=== PATIENT | male | born 1940 | race Caucasian/White ===

== ENCOUNTER 2017-07-02 12:21 | Inpatient (IN) | payer BC, MEDICARE ==
--- NOTE | 2017-07-02 12:44 | ED ---
General Adult HPI - General Chief complaint: Chest Pain Stated complaint: Sob,CP Time Seen by Provider: 07/02/17 12:21 Source: EMS, RN notes reviewed Mode of arrival: EMS Limitations: no limitations - History of Present Illness Initial comments: This is a 76-year-old male with past medical history significant for asthma. Patient states this morning he was having an asthma attack if he breathes perfume. Patient states it caused the typical chest tightness in the front and the back which is normal with his asthma. Patient states he went to the hospital at [place]. While he was elevated troponins 2 as well as an EKG and they found no significant change in the troponins at 0.055 and 0.056. Patient states he has no longer expressing any chest pain. Patient states it is still difficult to breathe. Patient received multiple doses of albuterol and Atrovent via nebulizer. Patient also states steroids. Patient states breath is still somewhat short at this time but much better than it was this morning. Patient requested admission at our hospital as opposed to the original hospital he went to. Patient denies any recent fever chills or cough. Patient is pain- free at this time - Related Data Home Medications Medication Instructions Recorded Confirmed Allopurinol [Zyloprim] 100 mg PO DAILY 05/09/15 05/09/16 Allopurinol [Zyloprim] 300 mg PO DAILY 05/09/15 05/09/16 Atorvastatin [Lipitor] 40 mg PO DAILY 05/09/15 05/09/16 Lisinopril [Zestril] 5 mg PO HS 05/09/15 05/09/16 Metoprolol Tartrate [Lopressor] 25 mg PO BID 05/09/15 05/09/16 Tamsulosin HCl [Flomax] 0.4 mg PO HS 05/13/15 05/09/16 Fluticasone/Salmeterol [Advair 1 puff INHALATION RT-BID 05/08/16 05/09/16 250-50 Diskus] methylPREDNISolone [Medrol] 4 mg PO DAILY 05/08/16 05/09/16 Previous Rx's Medication Instructions Recorded HYDROcodone/APAP 5-325MG [Verbena 1 - 2 tab PO Q6HR PRN #10 tab 05/14/15 5-325] Aspirin 81 mg PO DAILY #30 chew 05/10/16 Clopidogrel [Plavix] 75 mg PO DAILY #30 tab 05/10/16 Nitroglycerin Sl Tabs [Nitrostat] 0.4 mg SUBLINGUAL Q5M PRN #25 tab 05/10/16 Spironolactone [Aldactone] 25 mg PO DAILY #30 tab 05/10/16 metFORMIN HCL [Glucophage] 1,000 mg PO BID #0 05/10/16 Allergies Allergy/AdvReac Type Severity Reaction Status Date / Time Tetracyclines Allergy Rash/Hives Verified 07/02/17 12:23 aspirin AdvReac was told Verified 07/02/17 12:23 not to take r/t nasal polyps Review of Systems ROS Statement: Those systems with pertinent positive or pertinent negative responses have been documented in the HPI. ROS Other: All systems not noted in ROS Statement are negative. Past Medical History Past Medical History: Asthma, Cancer, Diabetes Mellitus, Hearing Disorder / Deafness, Myocardial Infarction ([place]) Additional Past Medical History / Comment(s): GOUT, HX OF MULT NASAL POLYPS, prostate cancer Last Myocardial Infarction Date:: 2009 History of Any Multi-Drug Resistant Organisms: None Reported Past Surgical History: AICD, Appendectomy, Cholecystectomy, Heart Catheterization With Stent, Joint Replacement, Pacemaker, Tonsillectomy Additional Past Surgical History / Comment(s): NASAL SX X 6 FOR POLYPS, TUBES IN EARS, Right hip replacement Past Anesthesia/Blood Transfusion Reactions: No Reported Reaction Date of Last Stent Placement:: 2009 Type of Cardiac Device: Permanent Pacemaker, AICD Device Placement Date:: 2014 Past Psychological History: No Psychological Hx Reported Smoking Status: Former smoker Past Alcohol Use History: None Reported, Occasional Past Drug Use History: None Reported - Past Family History Mother Family Medical History: No Reported History Father Family Medical History: Myocardial Infarction ([place]) Additional Family Medical History / Comment(s): emphysema General Exam - General Exam Comments Initial Comments: GENERAL: Patient is well-developed and well-nourished. Patient is nontoxic and well- hydrated and is in mild distress. ENT: Neck is soft and supple. No significant lymphadenopathy is noted. Oropharynx is clear. Moist mucous membranes. Neck has full range of motion without eliciting any pain. EYES: The sclera were anicteric and conjunctiva were pink and moist. Extraocular movements were intact and pupils were equal round and reactive to light. Eyelids were unremarkable. PULMONARY: Patient has expiratory wheezing bilaterally CARDIOVASCULAR: There is a regular rate and rhythm without any murmurs gallops or rubs. Femoral pulses are equal bilaterally ABDOMEN: Soft and nontender with normal bowel sounds. No palpable organomegaly was noted. There is no palpable pulsatile mass. SKIN: Skin is clear with no lesions or rashes and otherwise unremarkable. NEUROLOGIC: Patient is alert and oriented x3. Cranial nerves II through XII are grossly intact. Motor and sensory are also intact. Normal speech, volume and content. Symmetrical smile. MUSCULOSKELETAL: Normal extremities with adequate strength and full range of motion. No lower extremity swelling or edema. No calf tenderness. LYMPHATICS: No significant lymphadenopathy is noted PSYCHIATRIC: Normal psychiatric evaluation. Normal interpersonal interactions appears functionally intact in deals appropriately with others. No signs of depression. No signs of anxiety. Limitations: no limitations Course Vital Signs 07/02/17 07/02/17 12:23 12:34 Temperature 98.0 F Pulse Rate 104 H Respiratory 24 24 Rate Blood Pressure 149/94 O2 Sat by Pulse 94 L Oximetry Medical Decision Making - Medical Decision Making EKG shows sinus rhythm with occasional PVC at 89 bpm TN interval is 206 QRS is 110 QT interval 38 QTC is 472. Patient's EKG shows no ST segment elevation or depression or T wave abnormalities are noted. Disposition Clinical Impression: Status asthmaticus, Elevated troponin Disposition: ADMITTED IP TO THIS HOSP Referrals: Mohit Martínez DO [Primary Care Provider] - 1-2 days Time of Disposition: 12:45
[2017-07-02 13:36] VITALS: RESP 18
[2017-07-02 14:54] VITALS: BMI 24.4
[2017-07-02] MEDS: IPRATROPIUM-ALBUTEROL 3 ML NEB INHALATION PRN ×2 (15:10→19:55)
[2017-07-02] MEDS ORDERED: NITROGLYCERIN SL TABS 0.4 MG TAB SUBLINGUAL PRN (15:52)
--- NOTE | 2017-07-02 16:45 | P.HPIM ---
History of Present Illness 76-year-old male with past medical history significant for asthma. Patient states this morning he was having an asthma attack if he breathes perfume. Patient states it caused the typical chest tightness in the front and the back which is normal with his asthma. Patient states he went to the hospital at [place]. While he was elevated troponins 2 as well as an EKG and they found no significant change in the troponins at 0.055 and 0.056. Patient states he has no longer expressing any chest pain. Patient states it is still difficult to breathe. Patient received multiple doses of albuterol and Atrovent via nebulizer. Patient also states steroids. Patient states breath is still somewhat short at this time but much better than it was this morning. Patient requested admission at our hospital as opposed to the original hospital he went to. Patient denies any recent fever chills or cough. Patient is pain-free at this time. Although patient is comparing of chest pain earlier today which is pressure-like sensation appears to be related to asthma more than cardiac issue. Patient although has some ST-T wave changes on the EKG. Patient does have history of coronary artery disease ischemic myopathy previous ejection being 30% although patient denied orthopnea or PND does not appear to be in CHF exacerbation patient is on aldactone as a diuretic. Patient was comparing of cough with white sputum production Review of Systems REVIEW OF SYSTEMS: CONSTITUTIONAL: No fever, no malaise, no fatigue. HEENT: No recent visual problems or hearing problems. Denied any sore throat. CARDIOVASCULAR: No chest pain, orthopnea, PND, no palpitations, no syncope. PULMONARY: As mentioned in HPI GASTROINTESTINAL: No diarrhea, no nausea, no vomiting, no abdominal pain. Normoactive bowel sounds. NEUROLOGICAL: No headaches, no weakness, no numbness. HEMATOLOGICAL: Denies any bleeding or petechiae. GENITOURINARY: Denies any burning micturition, frequency, or urgency. MUSCULOSKELETAL/RHEUMATOLOGICAL: Denies any joint pain, swelling, or any muscle pain. ENDOCRINE: Denies any polyuria or polydipsia. The rest of the 14-point review of systems is negative. Past Medical History Past Medical History: Asthma, Coronary Artery Disease (CAD), Cancer, Diabetes Mellitus, Hearing Disorder / Deafness, Myocardial Infarction ([place]), Prostate Disorder, Respiratory Disorder Additional Past Medical History / Comment(s): Prostate cancer (2009) with radiation Last Myocardial Infarction Date:: 2015 History of Any Multi-Drug Resistant Organisms: None Reported Past Surgical History: AICD, Appendectomy, Cholecystectomy, Heart Catheterization With Stent, Joint Replacement, Pacemaker, Tonsillectomy Additional Past Surgical History / Comment(s): nasal surgery for nasal polyps, right hip replacement Past Anesthesia/Blood Transfusion Reactions: No Reported Reaction Date of Last Stent Placement:: 2015 Type of Cardiac Device: Permanent Pacemaker, AICD Device Placement Date:: 2014 Past Psychological History: No Psychological Hx Reported Smoking Status: Former smoker Past Alcohol Use History: Occasional Past Drug Use History: None Reported - Past Family History Mother Family Medical History: No Reported History Father Family Medical History: Myocardial Infarction ([place]) Additional Family Medical History / Comment(s): emphysema Medications and Allergies Home Medications Medication Instructions Recorded Confirmed Type Allopurinol [Zyloprim] 100 mg PO DAILY 05/09/15 07/02/17 History Allopurinol [Zyloprim] 300 mg PO DAILY 05/09/15 07/02/17 History Atorvastatin [Lipitor] 40 mg PO DAILY 05/09/15 07/02/17 History Metoprolol Tartrate [Lopressor] 25 mg PO BID 05/09/15 07/02/17 History Tamsulosin HCl [Flomax] 0.4 mg PO DAILY 05/13/15 07/02/17 History methylPREDNISolone [Medrol] 4 mg PO DAILY 05/08/16 07/02/17 History Clopidogrel [Plavix] 75 mg PO DAILY #30 tab 05/10/16 07/02/17 Rx Nitroglycerin Sl Tabs [Nitrostat] 0.4 mg SUBLINGUAL Q5M PRN #25 tab 05/10/1608/14 Rx Spironolactone [Aldactone] 25 mg PO DAILY #30 tab 05/10/16 07/02/17 Rx metFORMIN HCL [Glucophage] 1,000 mg PO BID #0 05/10/16 07/02/17 Rx Albuterol Nebulized [Ventolin 2.5 mg INHALATION RT-Q4H 07/02/17 07/02/17 History Nebulized] Aspirin 81 mg PO DAILY 07/02/17 07/02/17 History Lisinopril [Prinivil] 5 mg PO HS 07/02/17 07/02/17 History Allergies Allergy/AdvReac Type Severity Reaction Status Date / Time Tetracyclines Allergy Rash/Hives Verified 07/02/17 12:52 aspirin AdvReac was told Verified 07/02/17 12:52 not to take r/t nasal polyps Physical Exam Vitals: Vital Signs Temp Pulse Pulse Resp BP BP Pulse Ox 07/02/17 15:20 92 07/02/17 15:10 88 07/02/17 14:39 98.1 F 110 H 18 137/86 95 07/02/17 13:45 97.4 F L 07/02/17 13:35 94 18 149/94 95 07/02/17 12:34 24 07/02/17 12:23 98.0 F 104 H 24 149/94 94 L Intake and Output 07/02/17 07/02/17 07/02/17 06:59 14:59 22:59 Other: # Voids 1 Weight 66.6 kg Patient Weight 07/03/17 06:59 Weight 66.6 kg PHYSICAL EXAMINATION: GENERAL: The patient is alert and oriented x3, not in any acute distress. Well developed, well nourished. HEENT: Pupils are round and equally reacting to light. EOMI. No scleral icterus. No conjunctival pallor. Normocephalic, atraumatic. No pharyngeal erythema. No thyromegaly. CARDIOVASCULAR: S1 and S2 present. No murmurs, rubs, or gallops. PULMONARY: Mildly limited air entry into bilateral lung harley with expiratory wheezing patient is not using any accessory muscles of breathing ABDOMEN: Soft, nontender, nondistended, normoactive bowel sounds. No palpable organomegaly. MUSCULOSKELETAL: No joint swelling or deformity. EXTREMITIES: No cyanosis, clubbing, or pedal edema. NEUROLOGICAL: Gross neurological examination did not reveal any focal deficits. SKIN: No rashes. Results Labs: Abnormal Lab Results - Last 24 Hours (Table) 07/02/17 Range/Units 12:20 Troponin I 0.052 H* (0.000-0.034) ng/mL Thrombosis Risk Factor Assmnt - Choose All That Apply Any of the Below Risk Factors Present?: No Other Risk Factors: Yes Each Risk Factor Represents 2 Points: Age 61-74 years Other congenital or acquired thrombophilia - If yes, enter type in comment: No Thrombosis Risk Factor Assessment Total Risk Factor Score: 2 Thrombosis Risk Factor Assessment Level: Low Risk Assessment and Plan Plan: , Acute asthma exacerbation, patient appears to have chronic moderate persistent asthma with acute exacerbation outpatient the will be started on oral steroids inhalational treatments. I do not believe patient will require any antibiotics at this time. -mild elevated troponin secondary to hypoxemia -Congestive heart failure chronic systolic dysfunction from ischemic cardiomyopathy without any acute exacerbation -Coronary artery disease -Type 2 diabetes mellitus -Benign prostatic hypertrophy -Type 2 diabetes mellitus: Patient will be resumed on home regimen of anti- diabetic medications along with sliding scale insulin for systemic steroids
[2017-07-02] MEDS: metFORMIN 500 MG TAB PO SCH (17:15)
[2017-07-02] MEDS ORDERED: methylPREDNISolone SOD SUCCI 125 MG/2 ML VIAL IV SCH (18:00)
[2017-07-02] MEDS: METOPROLOL TARTRATE 25 MG TAB PO SCH (20:39)
[2017-07-02 20:55] LABS: Glucose,Whole Blood 250 mg/dL (75-99)
[2017-07-02] MEDS ORDERED: LISINOPRIL 5 MG TAB PO SCH (21:00)
[2017-07-02] MEDS: INSULIN ASPART 100 UNIT/ML 1 ML 10 ML VIAL SQ SCH (21:07)
[2017-07-03 05:59] LABS: Glucose,Whole Blood 139 mg/dL (75-99)
[2017-07-03 06:23] LABS: HCT 37.9 % (39.0-53.0); HGB 12.1 gm/dL (13.0-17.5); MCH 30.3 pg (25.0-35.0); MCHC 31.8 g/dL (31.0-37.0); Mean Platelet Volume 6.9; Platelet Count 208 k/uL (150-450); RBC 3.99 m/uL (4.30-5.90); RDW 15.1 % (11.5-15.5); WBC 9.1 k/uL (3.8-10.6)
[2017-07-03 06:33] LABS: Anion Gap 8 mmol/L; Blood Urea Nitrogen 15 mg/dL (9-20); Calcium 9.2 mg/dL (8.4-10.2); Carbon Dioxide 26 mmol/L (22-30); Chloride 107 mmol/L (98-107); Glucose 126 mg/dL (74-99); Potassium 4.6 mmol/L (3.5-5.1); Sodium 141 mmol/L (137-145)
[2017-07-03] MEDS: INSULIN ASPART 100 UNIT/ML 1 ML 10 ML VIAL SQ SCH ×2 (06:35→12:17)
[2017-07-03] MEDS: IPRATROPIUM-ALBUTEROL 3 ML NEB INHALATION PRN ×3 (06:55→11:27)
--- NOTE | 2017-07-03 08:46 | P.CRDCN ---
History of Present Illness Consult date: 07/03/17 History of present illness: This is Dr. Dunne dictating a consultation on this 76-year-old gentleman with history of previous coronary artery disease and stent placement of the proximal LAD done in 2009. Patient is also known to have total occlusion of the right coronary artery and diffuse disease in the mid and distal segments of the LAD and moderate disease in the distal circumflex. Patient was admitted to this hospital in April and had a cardiac catheterization because of abnormal troponins. Patient was found to have significant disease in the distal circumflex and had stent placement. Patient now comes with complaints of increasing shortness of breath, which she claims is related to his asthma exacerbation. Patient did have some tightness in the chest with exacerbation of asthma. He thinks these pains are not related to his coronary artery disease and not suggestive of his angina. Patient is feeling better since coming here. He wants to actually go home. He has chronic cough. His initial EKG did not reveal any acute changes. Second EKG showed T-wave inversions in the lateral leads. His troponin also normal but for not consistent with acute myocardial infarction pattern. His troponin values remained about 0. 55. I would recommend pulmonary evaluation for his shortness of breath and asthma. In view of abnormal EKG, though the enzymes studies are not consistent with acute LA, may consider repeat cardiac catheterization to see if there is any in- stent stenosis in the circumflex distribution. We'll discuss this with the patient. Review of Systems Respiratory: Reports congestion, Reports cough, Reports dyspnea Past Medical History Past Medical History: Asthma, Coronary Artery Disease (CAD), Cancer, Diabetes Mellitus, Hearing Disorder / Deafness, Myocardial Infarction ([place]), Prostate Disorder, Respiratory Disorder Additional Past Medical History / Comment(s): Prostate cancer (2009) with radiation Last Myocardial Infarction Date:: 2015 History of Any Multi-Drug Resistant Organisms: None Reported Past Surgical History: AICD, Appendectomy, Cholecystectomy, Heart Catheterization With Stent, Joint Replacement, Pacemaker, Tonsillectomy Additional Past Surgical History / Comment(s): nasal surgery for nasal polyps, right hip replacement Past Anesthesia/Blood Transfusion Reactions: No Reported Reaction Date of Last Stent Placement:: 2015 Type of Cardiac Device: Permanent Pacemaker, AICD Device Placement Date:: 2014 Past Psychological History: No Psychological Hx Reported Smoking Status: Former smoker Past Alcohol Use History: Occasional Past Drug Use History: None Reported - Past Family History Mother Family Medical History: No Reported History Father Family Medical History: Myocardial Infarction ([place]) Additional Family Medical History / Comment(s): emphysema Medications and Allergies Home Medications Medication Instructions Recorded Confirmed Type Allopurinol [Zyloprim] 100 mg PO DAILY 05/09/15 07/02/17 History Allopurinol [Zyloprim] 300 mg PO DAILY 05/09/15 07/02/17 History Atorvastatin [Lipitor] 40 mg PO DAILY 05/09/15 07/02/17 History Metoprolol Tartrate [Lopressor] 25 mg PO BID 05/09/15 07/02/17 History Tamsulosin HCl [Flomax] 0.4 mg PO DAILY 05/13/15 07/02/17 History methylPREDNISolone [Medrol] 4 mg PO DAILY 05/08/16 07/02/17 History Clopidogrel [Plavix] 75 mg PO DAILY #30 tab 05/10/16 07/02/17 Rx Nitroglycerin Sl Tabs [Nitrostat] 0.4 mg SUBLINGUAL Q5M PRN #25 tab 05/10/1608/14 Rx Spironolactone [Aldactone] 25 mg PO DAILY #30 tab 05/10/16 07/02/17 Rx metFORMIN HCL [Glucophage] 1,000 mg PO BID #0 05/10/16 07/02/17 Rx Albuterol Nebulized [Ventolin 2.5 mg INHALATION RT-Q4H 07/02/17 07/02/17 History Nebulized] Aspirin 81 mg PO DAILY 07/02/17 07/02/17 History Lisinopril [Prinivil] 5 mg PO HS 07/02/17 07/02/17 History Allergies Allergy/AdvReac Type Severity Reaction Status Date / Time Tetracyclines Allergy Rash/Hives Verified 07/02/17 12:52 aspirin AdvReac was told Verified 07/02/17 12:52 not to take r/t nasal polyps Physical Exam Vitals: Vital Signs Temp Pulse Pulse Resp BP BP Pulse Ox 07/03/17 07:06 104 H 07/03/17 06:56 100 07/03/17 04:00 98.0 F 103 H 18 138/98 95 07/03/17 03:10 99 07/03/17 02:50 99 07/03/17 00:00 97.2 F L 81 18 108/69 98 07/02/17 20:07 88 07/02/17 20:00 96.8 F L 111 H 18 145/95 95 07/02/17 19:55 90 95 07/02/17 15:20 92 07/02/17 15:10 88 07/02/17 14:39 98.1 F 110 H 18 137/86 95 07/02/17 13:45 97.4 F L 07/02/17 13:35 94 18 149/94 95 07/02/17 12:34 24 07/02/17 12:23 98.0 F 104 H 24 149/94 94 L Intake and Output 07/02/17 07/03/17 07/03/17 22:59 06:59 14:59 Intake Total 240 10 Balance 240 10 Intake: IV 10 0.9 10 Oral 240 Other: Voiding Method Toilet Toilet Urinal Urinal # Voids 1 2 Weight 68.5 kg GENERAL EXAM: Patient is alert and oriented and doesn't appear to be in any acute distress HEENT: Normocephalic. Normal reaction of pupils, equal size, normal range of extraocular motion. No erythema or exudates in throat. NECK: No masses, no nuchal rigidity. CHEST: No chest wall deformity. LUNGS: Diminished air entry with scattered rhonchi. HEART: S1 and S2 normal with no audible mumurs or gallops. Regular rhythm, f.. ABDOMEN: No hepatosplenomegaly, normal bowel sounds, no guarding or rigidity. SKIN: No rashes CENTRAL NERVOUS SYSTEM: No focal deficits. EXTREMITIES: No cyanosis, clubbing or edema. Results 07/03/17 06:05 07/03/17 06:05 Cardiac Enzymes 07/02/17 Range/Units 12:20 Troponin I 0.052 H* (0.000-0.034) ng/mL CBC 07/03/17 Range/Units 06:05 WBC 9.1 (3.8-10.6) k/uL RBC 3.99 L (4.30-5.90) m/uL Hgb 12.1 L (13.0-17.5) gm/dL Hct 37.9 L (39.0-53.0) % Plt Count 208 (150-450) k/uL Comprehensive Metabolic Panel 07/03/17 Range/Units 06:05 Sodium 141 (137-145) mmol/L Potassium 4.6 (3.5-5.1) mmol/L Chloride 107 (98-107) mmol/L Carbon Dioxide 26 (22-30) mmol/L BUN 15 (9-20) mg/dL Creatinine 0.58 L (0.66-1.25) mg/dL Glucose 126 H (74-99) mg/dL Calcium 9.2 (8.4-10.2) mg/dL Current Medications Generic Name Dose Route Start Last Admin Trade Name Freq PRN Reason Stop Dose Admin Albuterol/Ipratropium 3 ml 07/02/17 12:46 07/03/17 06:55 Duoneb 0.5 Mg-3 Mg/3 Ml Soln INHALATION 3 ml RT-Q4H PRN Administration Shortness Of Breath Or Wheezing Allopurinol 100 mg 07/03/17 09:00 Zyloprim PO DAILY [facility] Aspirin 81 mg 07/03/17 09:00 Aspirin PO DAILY [facility] Atorvastatin Calcium 40 mg 07/03/17 09:00 Lipitor PO DAILY [facility] Clopidogrel Bisulfate 75 mg 07/03/17 09:00 Plavix PO DAILY [facility] Insulin Aspart 0 unit 07/02/17 21:00 07/03/17 06:35 Novolog SQ 1 unit ACHS YECENIA Administration Protocol Lisinopril 5 mg 07/02/17 21:00 07/02/17 20:39 Zestril PO 5 mg HS YECENIA Administration Metformin HCl 1,000 mg 07/02/17 17:30 07/02/17 17:15 Glucophage PO 1,000 mg AC-BID YECENIA Administration Metoprolol Tartrate 25 mg 07/02/17 21:00 07/02/17 20:39 Lopressor PO 25 mg BID YECENIA Administration Nitroglycerin 0.4 mg 07/02/17 15:52 Nitrostat SUBLINGUAL Q5M PRN Chest Pain Prednisone 60 mg 07/03/17 09:00 PO DAILY [facility] Spironolactone 25 mg 07/03/17 09:00 Aldactone PO DAILY [facility] Tamsulosin HCl 0.4 mg 07/03/17 09:00 Flomax PO DAILY [facility] Intake and Output 07/02/17 07/03/17 07/03/17 22:59 06:59 14:59 Intake Total 240 10 Balance 240 10 Intake: IV 10 0.9 10 Oral 240 Other: Voiding Method Toilet Toilet Urinal Urinal # Voids 1 2 Weight 68.5 kg 07/03/17 06:05 07/03/17 06:05 EKG Interpretations (text) Initial EKG showed a sinus rhythm and sinus tachycardia with a pulmonary disease pattern and nonspecific T-wave abnormalities. Second EKG showed sinus rhythm with APCs. There are T-wave abnormalities in the lateral leads. Ischemia cannot be excluded in the lateral leads Assessment and Plan (1) CAD (coronary artery disease) Current Visit: Yes Status: Acute Code(s): I25.10 - ATHSCL HEART DISEASE OF [place] CORONARY ARTERY W/O ANG PCTRS SNOMED Code(s): 57744502 (2) Elevated troponin Current Visit: Yes Status: Acute Code(s): R74.8 - ABNORMAL LEVELS OF OTHER SERUM ENZYMES SNOMED Code(s): 339749788 (3) Status asthmaticus Current Visit: Yes Status: Acute Code(s): J45.902 - UNSPECIFIED ASTHMA WITH STATUS ASTHMATICUS SNOMED Code(s): 819307686 (4) Unstable angina Current Visit: No Status: Acute Code(s): I20.0 - UNSTABLE ANGINA SNOMED Code(s): 8354154 Plan: In view of recent stent placement and abnormal EKG findings, may have to consider doing a repeat cardiac catheterization. We'll discuss this with the patient. If agreeable, may consider cardiac catheter tomorrow. He patient doesn't want any procedure, we'll proceed with maximal medical therapy. I will add oral nitrates to the current regimen
[2017-07-03] MEDS ORDERED: predniSONE 20 MG TAB PO SCH (09:00)
[2017-07-03] MEDS ORDERED: ALLOPURINOL 100 MG TAB PO SCH (09:00)
[2017-07-03] MEDS ORDERED: ISOSORBIDE MONONITRATE ER 15 MG TAB PO SCH (09:00)
[2017-07-03] MEDS ORDERED: ATORVASTATIN 40 MG TAB PO SCH (09:00)
[2017-07-03] MEDS ORDERED: SPIRONOLACTONE 25 MG TAB PO SCH (09:00)
[2017-07-03] MEDS ORDERED: ASPIRIN 81 MG PO SCH (09:00)
[2017-07-03] MEDS ORDERED: TAMSULOSIN 0.4 MG CAP.ER.24H PO SCH (09:00)
[2017-07-03] MEDS ORDERED: CLOPIDOGREL 75 MG TAB PO SCH (09:00)
[2017-07-03] MEDS: METOPROLOL TARTRATE 25 MG TAB PO SCH (09:30)
[2017-07-03] MEDS: metFORMIN 500 MG TAB PO SCH (09:30)
[2017-07-03 12:13] LABS: Glucose,Whole Blood 233 mg/dL (75-99)
[2017-07-03 12:41] VITALS: TEMP 96.8
[2017-07-03 12:47] VITALS: BP 102/62; PULSE 56
--- NOTE | 2017-07-03 14:16 | P.DS ---
Providers Date of admission: 07/02/17 12:46 Attending physician: Amber Negron Consults: 07/02/17 12:46 Consult Physician Routine Consulting Provider: [facility] Consult Reason/Comments: Elevated troponin Do you want consulting provider notified?: Yes Primary care physician: Mohit Martínez [facility] Course: Patient was admitted for asthma exacerbation improved symptoms still has some wheezing wishing to go home. The other issue is some EKG changes along with his cardiac history patient is complaining of chest pain because of which cardiology evaluated the patient the recommending cardiac catheterization but patient is not wishing to get the procedure done here during this hospitalization. We'll discuss with cardiology if cardiology clears him patient will be discharged on weaning dose of steroids and Advair along with albuterol. Will not require any antibiotics at this time patient has asthmatic bronchitis PHYSICAL EXAMINATION: GENERAL: The patient is alert and oriented x3, not in any acute distress. Well developed, well nourished. HEENT: Pupils are round and equally reacting to light. EOMI. No scleral icterus. No conjunctival pallor. Normocephalic, atraumatic. No pharyngeal erythema. No thyromegaly. CARDIOVASCULAR: S1 and S2 present. No murmurs, rubs, or gallops. PULMONARY: Minimal expiratory wheezing was appreciated ABDOMEN: Soft, nontender, nondistended, normoactive bowel sounds. No palpable organomegaly. MUSCULOSKELETAL: No joint swelling or deformity. EXTREMITIES: No cyanosis, clubbing, or pedal edema. NEUROLOGICAL: Gross neurological examination did not reveal any focal deficits. SKIN: No rashes. Assessment and Plan Plan: , Acute asthma exacerbation, patient appears to have chronic moderate persistent asthma with acute exacerbation -mild elevated troponin secondary to hypoxemia -Congestive heart failure chronic systolic dysfunction from ischemic cardiomyopathy without any acute exacerbation -Coronary artery disease -Type 2 diabetes mellitus -Benign prostatic hypertrophy -Type 2 diabetes mellitus: Plan - Discharge Summary Discharge Rx Participant: No New Discharge Prescriptions: New Fluticasone/Salmeterol [Advair 250-50 Diskus] 1 inhalation PO BID #1 inhaler predniSONE 10 mg PO DAILY #30 tab Continue Metoprolol Tartrate [Lopressor] 25 mg PO BID Atorvastatin [Lipitor] 40 mg PO DAILY Allopurinol [Zyloprim] 300 mg PO DAILY Allopurinol [Zyloprim] 100 mg PO DAILY Tamsulosin HCl [Flomax] 0.4 mg PO DAILY Clopidogrel [Plavix] 75 mg PO DAILY #30 tab Nitroglycerin Sl Tabs [Nitrostat] 0.4 mg SUBLINGUAL Q5M PRN #25 tab PRN Reason: Chest Pain Spironolactone [Aldactone] 25 mg PO DAILY #30 tab metFORMIN HCL [Glucophage] 1,000 mg PO BID #0 Lisinopril [Prinivil] 5 mg PO HS Albuterol Nebulized [Ventolin Nebulized] 2.5 mg INHALATION RT-Q4H Aspirin 81 mg PO DAILY Discontinued methylPREDNISolone [Medrol] 4 mg PO DAILY Discharge Medication List Allopurinol [Zyloprim] 100 mg PO DAILY 05/09/15 [History] Allopurinol [Zyloprim] 300 mg PO DAILY 05/09/15 [History] Atorvastatin [Lipitor] 40 mg PO DAILY 05/09/15 [History] Metoprolol Tartrate [Lopressor] 25 mg PO BID 05/09/15 [History] Tamsulosin HCl [Flomax] 0.4 mg PO DAILY 05/13/15 [History] Clopidogrel [Plavix] 75 mg PO DAILY #30 tab 05/10/16 [Rx] Nitroglycerin Sl Tabs [Nitrostat] 0.4 mg SUBLINGUAL Q5M PRN #25 tab 05/10/16 [Rx ] Spironolactone [Aldactone] 25 mg PO DAILY #30 tab 05/10/16 [Rx] metFORMIN HCL [Glucophage] 1,000 mg PO BID #0 05/10/16 [Rx] Albuterol Nebulized [Ventolin Nebulized] 2.5 mg INHALATION RT-Q4H 07/02/17 [ History] Aspirin 81 mg PO DAILY 07/02/17 [History] Lisinopril [Prinivil] 5 mg PO HS 07/02/17 [History] Fluticasone/Salmeterol [Advair 250-50 Diskus] 1 inhalation PO BID #1 inhaler 09/14 [Rx] predniSONE 10 mg PO DAILY #30 tab 07/03/17 [Rx] Follow up Appointment(s)/Referral(s): Mohit Martínez DO [Primary Care Provider] - 3 Days Discharge Disposition: HOME SELF-CARE
[2017-07-03 18:30] LABS: Hemoglobin A1C 6.7 % (4.0-6.0)
== END 2017-07-03 16:34 | disposition home or self-care (01) | DRG 202 ==
LOC: EC 12:21 → 6SEL 12:46
PROVIDERS: ADMIT Internal Medicine; ATTEND Internal Medicine
DX: J45.41 Moderate persistent asthma with (acute) exacerbation (principal); I50.22 Chronic systolic (congestive) heart failure; I25.110 Atherosclerotic heart disease of native coronary artery with unstable angina pectoris; I25.82 Chronic total occlusion of coronary artery; E11.9 Type 2 diabetes mellitus without complications; I25.5 Ischemic cardiomyopathy; R09.02 Hypoxemia; Z96.641 Presence of right artificial hip joint; N40.0 Benign prostatic hyperplasia without lower urinary tract symptoms; H91.90 Unspecified hearing loss, unspecified ear; Z79.899 Other long term (current) drug therapy; Z79.82 Long term (current) use of aspirin; Z79.02 Long term (current) use of antithrombotics/antiplatelets; Z79.4 Long term (current) use of insulin; Z82.5 Family history of asthma and other chronic lower respiratory diseases; Z82.49 Family history of ischemic heart disease and other diseases of the circulatory system; Z87.891 Personal history of nicotine dependence; Z95.5 Presence of coronary angioplasty implant and graft; Z90.49 Acquired absence of other specified parts of digestive tract; Z90.89 Acquired absence of other organs; Z95.810 Presence of automatic (implantable) cardiac defibrillator; Z85.46 Personal history of malignant neoplasm of prostate; I25.2 Old myocardial infarction; I49.3 Ventricular premature depolarization
CPT/HCPCS: 36415; 80048; 83036; 84484; 85027; 93005; 94640; 94760; 99285

== ENCOUNTER 2017-07-07 12:38 | Inpatient (IN) | payer MEDICARE ==
--- NOTE | 2017-07-07 13:09 | ED ---
General Adult HPI - General Stated complaint: chest pain Time Seen by Provider: 07/07/17 12:38 Source: RN notes reviewed - History of Present Illness Initial comments: This is a 76-year-old male who presents emergency Department after having gone to [facility]. Patient stated at 4 AM this morning he had 2 defibrillator shocks and then went to [facility]. Patient states she was also short of breath. According to the [place] physician the patient has an pneumonia as well as elevated troponin. Patient currently states he is somewhat short of breath but feels better than this morning. Patient denies any chest pain now but he did have some earlier this morning. Patient states she's not had a fever that he knows of. Patient states he is coughing but not coughing any sputum up. Patient denies any calf pain. Patient denies any increased edema in the legs. Patient denies any abdominal pain patient denies nausea vomiting diarrhea. After those 2 consecutive shocks this morning he did not receive any more shocks. - Related Data Home Medications Medication Instructions Recorded Confirmed Allopurinol [Zyloprim] 100 mg PO DAILY 05/09/15 07/07/17 Allopurinol [Zyloprim] 300 mg PO DAILY 05/09/15 07/07/17 Atorvastatin [Lipitor] 40 mg PO DAILY 05/09/15 07/07/17 Metoprolol Tartrate [Lopressor] 25 mg PO BID 05/09/15 07/07/17 Tamsulosin HCl [Flomax] 0.4 mg PO DAILY 05/13/15 07/07/17 Albuterol Nebulized [Ventolin 2.5 mg INHALATION RT-Q4H 07/02/17 07/07/17 Nebulized] Aspirin 81 mg PO DAILY 07/02/17 07/07/17 Lisinopril [Prinivil] 5 mg PO HS 07/02/17 07/07/17 predniSONE See Taper PO DAILY 07/07/17 07/07/17 Previous Rx's Medication Instructions Recorded Clopidogrel [Plavix] 75 mg PO DAILY #30 tab 05/10/16 Nitroglycerin Sl Tabs [Nitrostat] 0.4 mg SUBLINGUAL Q5M PRN #25 tab 05/10/16 Spironolactone [Aldactone] 25 mg PO DAILY #30 tab 05/10/16 metFORMIN HCL [Glucophage] 1,000 mg PO BID #0 05/10/16 Fluticasone/Salmeterol [Advair 1 inhalation PO BID #1 inhaler 07/03/17 250-50 Diskus] Isosorbide Mononitrate ER [Imdur] 15 mg PO DAILY #30 dose 07/03/17 Allergies Allergy/AdvReac Type Severity Reaction Status Date / Time Tetracyclines Allergy Rash/Hives Verified 07/07/17 13:07 aspirin AdvReac was told Verified 07/07/17 13:07 not to take r/t nasal polyps Review of Systems ROS Statement: Those systems with pertinent positive or pertinent negative responses have been documented in the HPI. ROS Other: All systems not noted in ROS Statement are negative. Past Medical History Past Medical History: Asthma, Coronary Artery Disease (CAD), Cancer, Diabetes Mellitus, Hearing Disorder / Deafness, Myocardial Infarction (MA), Prostate Disorder, Respiratory Disorder Additional Past Medical History / Comment(s): Prostate cancer (2009) with radiation Last Myocardial Infarction Date:: 2015 History of Any Multi-Drug Resistant Organisms: None Reported Past Surgical History: AICD, Appendectomy, Cholecystectomy, Heart Catheterization With Stent, Joint Replacement, Pacemaker, Tonsillectomy Additional Past Surgical History / Comment(s): nasal surgery for nasal polyps, right hip replacement Past Anesthesia/Blood Transfusion Reactions: No Reported Reaction Date of Last Stent Placement:: 2015 Type of Cardiac Device: Permanent Pacemaker, AICD Device Placement Date:: 2014 Past Psychological History: No Psychological Hx Reported Smoking Status: Former smoker Past Alcohol Use History: Occasional Past Drug Use History: None Reported - Past Family History Mother Family Medical History: No Reported History Father Family Medical History: Myocardial Infarction (MA) Additional Family Medical History / Comment(s): emphysema General Exam - General Exam Comments Initial Comments: GENERAL: Patient is well-developed and well-nourished. Patient is nontoxic and well- hydrated and is in mild distress. ENT: Neck is soft and supple. No significant lymphadenopathy is noted. Oropharynx is clear. Moist mucous membranes. Neck has full range of motion without eliciting any pain. EYES: The sclera were anicteric and conjunctiva were pink and moist. Extraocular movements were intact and pupils were equal round and reactive to light. Eyelids were unremarkable. PULMONARY: Patient is wheezing diffusely CARDIOVASCULAR: Patient is tachycardic at about 106 beats a minute ABDOMEN: Soft and nontender with normal bowel sounds. No palpable organomegaly was noted. There is no palpable pulsatile mass. SKIN: Skin is clear with no lesions or rashes and otherwise unremarkable. NEUROLOGIC: Patient is alert and oriented x3. Cranial nerves II through XII are grossly intact. Motor and sensory are also intact. Normal speech, volume and content. Symmetrical smile. MUSCULOSKELETAL: Normal extremities with adequate strength and full range of motion. No lower extremity swelling or edema. No calf tenderness. LYMPHATICS: No significant lymphadenopathy is noted PSYCHIATRIC: Normal psychiatric evaluation. Course Vital Signs 07/07/17 07/07/17 07/07/17 12:38 14:33 14:40 Temperature 98.4 F Pulse Rate 22 L 101 H 104 H Respiratory 115 H Rate Blood Pressure 151/86 O2 Sat by Pulse 100 Oximetry Medical Decision Making - Medical Decision Making EKG shows sinus tachycardia with occasional PAC at 107 bpm [place] interval is on a 72 QRS is under 12 QT interval 364 QTC is 485. Patient's EKG shows no ST segment elevation or depression. I reviewed the chest x-ray it wasn't obvious that there was pneumonia however the patient was already being treated for. Patient secondary troponin was elevated mildly. I spoke with Dr. Gale he agreed to admit the patient admitted the patient. Patient's been started on heparin and I continued antibiotics. - Lab Data Result diagrams: 07/07/17 12:50 07/07/17 12:50 Lab Results 07/07/17 07/07/17 07/07/17 Range/Units 12:50 12:50 12:50 WBC 8.8 (3.8-10.6) k/uL RBC 4.59 (4.30-5.90) m/uL Hgb 13.7 (13.0-17.5) gm/dL Hct 42.7 (39.0-53.0) % MCV 93.2 (80.0-100.0) fL MCH 29.9 (25.0-35.0) pg MCHC 32.0 (31.0-37.0) g/dL RDW 14.2 (11.5-15.5) % Plt Count 219 (150-450) k/uL Neutrophils % 94 % Lymphocytes % 2 % Monocytes % 3 % Eosinophils % 0 % Basophils % 0 % Neutrophils # 8.2 H (1.3-7.7) k/uL Lymphocytes # 0.2 L (1.0-4.8) k/uL Monocytes # 0.2 (0-1.0) k/uL Eosinophils # 0.0 (0-0.7) k/uL Basophils # 0.0 (0-0.2) k/uL PT (9.0-12.0) sec INR (<1.2) APTT (22.0-30.0) sec Sodium 137 (137-145) mmol/L Potassium 4.6 (3.5-5.1) mmol/L Chloride 101 (98-107) mmol/L Carbon Dioxide 23 (22-30) mmol/L Anion Gap 13 mmol/L BUN 11 (9-20) mg/dL Creatinine 0.60 L (0.66-1.25) mg/dL Est GFR (MDRD) Af Amer >60 (>60 ml/min/1.73 sqM) Est GFR (MDRD) Non-Af >60 (>60 ml/min/1.73 sqM) Glucose 242 H (74-99) mg/dL Plasma Lactic Acid Deep 2.9 H* (0.7-2.0) mmol/L Calcium 8.9 (8.4-10.2) mg/dL Total Bilirubin 0.7 (0.2-1.3) mg/dL AST 30 (17-59) U/L ALT 41 (21-72) U/L Alkaline Phosphatase 82 (38-126) U/L Troponin I (0.000-0.034) ng/mL Total Protein 6.2 L (6.3-8.2) g/dL Albumin 3.9 (3.5-5.0) g/dL 07/07/17 07/07/17 Range/Units 12:50 12:50 WBC (3.8-10.6) k/uL RBC (4.30-5.90) m/uL Hgb (13.0-17.5) gm/dL Hct (39.0-53.0) % MCV (80.0-100.0) fL MCH (25.0-35.0) pg MCHC (31.0-37.0) g/dL RDW (11.5-15.5) % Plt Count (150-450) k/uL Neutrophils % % Lymphocytes % % Monocytes % % Eosinophils % % Basophils % % Neutrophils # (1.3-7.7) k/uL Lymphocytes # (1.0-4.8) k/uL Monocytes # (0-1.0) k/uL Eosinophils # (0-0.7) k/uL Basophils # (0-0.2) k/uL PT 10.4 (9.0-12.0) sec INR 1.1 (<1.2) APTT 22.5 (22.0-30.0) sec Sodium (137-145) mmol/L Potassium (3.5-5.1) mmol/L Chloride (98-107) mmol/L Carbon Dioxide (22-30) mmol/L Anion Gap mmol/L BUN (9-20) mg/dL Creatinine (0.66-1.25) mg/dL Est GFR (MDRD) Af Amer (>60 ml/min/1.73 sqM) Est GFR (MDRD) Non-Af (>60 ml/min/1.73 sqM) Glucose (74-99) mg/dL Plasma Lactic Acid Deep (0.7-2.0) mmol/L Calcium (8.4-10.2) mg/dL Total Bilirubin (0.2-1.3) mg/dL AST (17-59) U/L ALT (21-72) U/L Alkaline Phosphatase (38-126) U/L Troponin I 0.359 H* (0.000-0.034) ng/mL Total Protein (6.3-8.2) g/dL Albumin (3.5-5.0) g/dL Disposition Clinical Impression: Non-STEMI (non-ST elevated myocardial infarction), Defibrillator discharge Disposition: ADMITTED IP TO THIS HOSP Referrals: Mohit Martínez DO [Primary Care Provider] - 1-2 days Time of Disposition: 14:40
[2017-07-07 13:33] LABS: Basophils % (A) 0 %; Eosinophils % (A) 0 %; HCT 42.7 % (39.0-53.0); HGB 13.7 gm/dL (13.0-17.5); Lymphocytes # (A) 0.2 k/uL (1.0-4.8); Lymphocytes % (A) 2 %; MCH 29.9 pg (25.0-35.0); MCV 93.2 fL (80.0-100.0); Mean Platelet Volume 6.9; Monocytes # (A) 0.2 k/uL (0-1.0); Monocytes % (A) 3 %; Neutrophils # (A) 8.2 k/uL (1.3-7.7); Neutrophils % (A) 94 %; Platelet Count 219 k/uL (150-450); RBC 4.59 m/uL (4.30-5.90); RDW 14.2 % (11.5-15.5); WBC 8.8 k/uL (3.8-10.6)
[2017-07-07 13:41] LABS: ALT 41 U/L (21-72); AST 30 U/L (17-59); Albumin 3.9 g/dL (3.5-5.0); Alkaline Phosphatase 82 U/L (38-126); Anion Gap 13 mmol/L; Blood Urea Nitrogen 11 mg/dL (9-20); Calcium 8.9 mg/dL (8.4-10.2); Carbon Dioxide 23 mmol/L (22-30); Chloride 101 mmol/L (98-107); Glucose 242 mg/dL (74-99); Potassium 4.6 mmol/L (3.5-5.1); Sodium 137 mmol/L (137-145); Total Bilirubin 0.7 mg/dL (0.2-1.3); Total Protein 6.2 g/dL (6.3-8.2)
[2017-07-07 13:45] LABS: INR 1.1 (<1.2); Partial Thromboplastin Time 22.5 sec (22.0-30.0); Prothrombin Time 10.4 sec (9.0-12.0)
[2017-07-07] MEDS ORDERED: IPRATROPIUM-ALBUTEROL 3 ML NEB INHALATION STA (14:25)
[2017-07-07] MEDS ORDERED: HEPARIN SODIUM,PORCINE 5,000 UNIT/ML 1 ML VIAL IV ONE (14:37)
[2017-07-07] MEDS ORDERED: NITROGLYCERIN SL TABS 0.4 MG TAB SUBLINGUAL PRN ×2 (14:40→15:52)
[2017-07-07] MEDS: HEPARIN SOD,PORK IN 0.45% NACL 25,000 UNIT in 0.45% NACL 1 500ML.BAG IV SCH (15:13)
--- NOTE | 2017-07-07 16:24 | XR ---
EXAMINATION TYPE: XR chest 1V portable DATE OF EXAM: 07/07/2017 COMPARISON: 05/08/2016 INDICATION: Pneumonia defibrillator malfunction TECHNIQUE: Single frontal view of the chest is obtained. FINDINGS: The heart size is normal. The pulmonary vasculature is normal. The lungs are clear. There is chronic elevation of the right diaphragm. Defibrillator is placed over the left chest. EKG leads overlie the chest. IMPRESSION: 1. No acute pulmonary process.
[2017-07-07] MEDS: PIPERACILLIN-TAZOBACTAM 3.375 GM in DEXTROSE/WATER 1 50ML.BAG IVPB SCH ×2 (16:38→23:12)
[2017-07-07 16:39] LABS: Appearance,Urine Clear (Clear); Bilirubin,Urine Negative (Negative); Blood,Urine Negative (Negative); Color,Urine Light Yellow; Glucose,Urine (UA) 1+ (Negative); Ketones,Urine Negative (Negative); Leukocyte Esterase,Urine Negative (Negative); Nitrite,Urine Negative (Negative); Protein,Urine Trace (Negative); Urobilinogen,Urine <2.0 mg/dL (<2.0)
[2017-07-07 16:41] LABS: Glucose,Whole Blood 248 mg/dL (75-99)
[2017-07-07] MEDS: INSULIN ASPART 100 UNIT/ML 1 ML 10 ML VIAL SQ SCH ×2 (17:05→21:07)
[2017-07-07] MEDS: TAMSULOSIN 0.4 MG CAP.ER.24H PO SCH (17:05)
[2017-07-07] MEDS: metFORMIN 500 MG TAB PO SCH (17:06)
[2017-07-07] MEDS: IPRATROPIUM-ALBUTEROL 3 ML NEB INHALATION SCH ×2 (17:52→19:56)
[2017-07-07] MEDS ORDERED: NITROGLYCERIN OINT 1 INCH/GM PACKET TOPICAL SCH (18:00)
[2017-07-07] MEDS ORDERED: FUROSEMIDE 10 MG/ML 4 ML VIAL IV STA (18:17)
[2017-07-07] MEDS: METOPROLOL TARTRATE 50 MG TAB PO SCH (18:36)
[2017-07-07 19:32] LABS: Creatine Kinase MB 6.2 ng/mL (0.0-2.4); Troponin I 0.264 ng/mL (0.000-0.034)
[2017-07-07] MEDS: SYMBICORT 80-4.5 MCG INHALER INHALATION SCH (19:56)
[2017-07-07] MEDS ORDERED: METOPROLOL TARTRATE 25 MG TAB PO SCH (21:00)
[2017-07-07] MEDS: LISINOPRIL 5 MG TAB PO SCH (21:06)
[2017-07-07 21:08] LABS: Glucose,Whole Blood 105 mg/dL (75-99)
[2017-07-07] MEDS: methylPREDNISolone SOD SUCCI 125 MG/2 ML VIAL IV SCH ×2 (21:09→23:02)
--- NOTE | 2017-07-07 21:09 | HP ---
HISTORY AND PHYSICAL CHIEF COMPLAINTS: Shortness of breath as well as cough and sputum and AICD shocks. HISTORY OF PRESENT ILLNESS: This is a 76-year-old gentleman with a past medical history of asthma, CAD, history of diabetes mellitus, myocardial infarction, history of AICD, CAD and stent, being followed by Dr. Mohit Martínez in the outpatient setting. Apparently he had two AICD shocks at 4 a.m. this morning. The patient went to [facility]. The patient also had shortness of breath and cough and sputum. In [facility], the patient was suspected to have pneumonia and elevated troponin. The patient subsequently was referred to [facility], where he was admitted for further evaluation and treatment through the emergency room. There is no history of any fever, rigor or chills, no history of headache, loss of consciousness, seizures. PAST MEDICAL HISTORY: 1. History of CAD. 2. History of myocardial infarction. 3. History if AICD. 4. History of stent. 5. History of permanent pacemaker. HOME MEDICATIONS: 1. Prinivil 5 mg p.o. at bedtime. 2. Prednisone daily. 3. Glucophage 1000 mg p.o. b.i.d. 4. Flomax 0.4 daily. 5. Aldactone 25 mg p.o. daily. 6. Nitrostat 0.4 sublingually p.r.n. 7. Lopressor 25 mg p.o. b.i.d. 8. Imdur 15 mg p.o. daily. 9. Advair 250/50 one puff b.i.d. 10.Plavix 75 mg p.o. daily. 11.Lipitor 40 mg p.o. daily. 12.Aspirin 81 mg p.o. daily. 13.Zyloprim 300 mg p.o. daily and 100 mg p.o. daily. 14.Ventolin 2.5 q.4 p.r.n. ALLERGIES: 1. TETRACYCLINE. 2. ASPIRIN. FAMILY HISTORY: History of myocardial infarction and emphysema in the family. SOCIAL HISTORY: History of alcohol. Previous history of smoking. REVIEW OF SYSTEMS: ENT: No diminished hearing. No diminished vision. CARDIOVASCULAR SYSTEM: As mentioned earlier. RESPIRATORY SYSTEM: As mentioned earlier. GI: No nausea, vomiting. : No dysuria or retention. NERVOUS SYSTEM: No numbness, weakness. ALLERGY/IMMUNOLOGY: No asthma, hayfever. MUSCULOSKELETAL: As mentioned earlier. HEMATOLOGY/ONCOLOGY: No history of anemia. ENDOCRINE: As mentioned earlier. CONSTITUTIONAL: As mentioned earlier. DERMATOLOGY: Negative. RHEUMATOLOGY: Negative. PSYCHIATRY: As mentioned earlier. PHYSICAL EXAMINATION: Patient is alert and oriented x3. Pulse 105, blood pressure 134/94, respiration 24, temperature 96.1, pulse ox 95% on room air. HEENT: Conjunctivae normal. Oral mucosa moist. NECK: No jugular venous distention. No carotid bruit. No lymph node enlargement. CARDIOVASCULAR SYSTEM: S1, S2 muffled. No S3. No S4. RESPIRATORY SYSTEM: Breath sounds diminished at the bases. Bilateral scattered rhonchi and expiratory wheezing and crackles. ABDOMEN: Soft, nontender. No mass palpable. LEGS: No edema. No swelling. NERVOUS SYSTEM: Higher functions as mentioned earlier. Moves all 4 limbs. No focal motor or sensory deficit. LYMPHATIC: No lymph node palpable in neck or axillae. SKIN: No ulcer, rash, bleeding. LABS: CBC within normal limits. Glucose 242, 248. Plasma lactic acid 2.9 and 5.7. Troponin 0.359 and 0.264. ASSESSMENT: 1. Status post AICD shocks. Rule out cardiac arrhythmia. 2. Possible purulent acute bronchitis or early pneumonia. 3. Elevated lactic acid, multifactorial. 4. Elevated troponin up to 0.359. 5. History of asthma. 6. History of congestive heart failure with chronic systolic dysfunction with some ischemic cardiomyopathy. 7. History of prostate disorder and cancer. 8. History of cholecystectomy. 9. History of coronary artery disease and stent. 10.Remote history of nicotine dependence. RECOMMENDATIONS AND DISCUSSION: In this 76-year-old gentleman who presented with multiple complex medical issues, we will monitor the patient closely, continue the current medications, continue with symptomatic treatment. We will initiate intensive bronchodilator treatment, IV steroids and also empiric antibiotics. Cardiology evaluation. Monitor blood sugars closely. If the sugars are elevated, insulin drip may be initiated. We will follow the patient closely. Prognosis guarded because of the multiple complex medical issues. Further recommendations to follow. A copy of this dictation is being forwarded to Dr. Martínez, who is the primary physician. MMODL / IJN: [id number] /
[2017-07-07] MEDS: IPRATROPIUM-ALBUTEROL 3 ML NEB INHALATION PRN (22:08)
[2017-07-08] MEDS: IPRATROPIUM-ALBUTEROL 3 ML NEB INHALATION PRN ×4 (00:08→23:16)
[2017-07-08 00:58] LABS: Hemoglobin A1C 6.7 % (4.0-6.0)
[2017-07-08 01:15] LABS: Creatine Kinase MB 6.5 ng/mL (0.0-2.4)
[2017-07-08 01:16] LABS: Troponin I 0.339 ng/mL (0.000-0.034)
[2017-07-08 04:46] LABS: Basophils % (A) 0 %; Eosinophils % (A) 0 %; HCT 42.6 % (39.0-53.0); HGB 13.5 gm/dL (13.0-17.5); Lymphocytes # (A) 0.4 k/uL (1.0-4.8); Lymphocytes % (A) 7 %; MCH 30.6 pg (25.0-35.0); MCHC 31.8 g/dL (31.0-37.0); MCV 96.2 fL (80.0-100.0); Mean Platelet Volume 6.7; Monocytes # (A) 0.3 k/uL (0-1.0); Monocytes % (A) 4 %; Neutrophils # (A) 5.9 k/uL (1.3-7.7); Neutrophils % (A) 88 %; Platelet Count 203 k/uL (150-450); RBC 4.42 m/uL (4.30-5.90); RDW 14.2 % (11.5-15.5); WBC 6.7 k/uL (3.8-10.6)
[2017-07-08 05:04] LABS: Anion Gap 9 mmol/L; Blood Urea Nitrogen 15 mg/dL (9-20); Calcium 8.7 mg/dL (8.4-10.2); Carbon Dioxide 26 mmol/L (22-30); Chloride 99 mmol/L (98-107); Cholesterol 98 mg/dL (<200); Glucose 182 mg/dL (74-99); HDL Cholesterol 64 mg/dL (40-60); LDL Cholesterol,Calculated 21 mg/dL (0-99); Magnesium 1.8 mg/dL (1.6-2.3); Potassium 4.4 mmol/L (3.5-5.1); Sodium 134 mmol/L (137-145); Triglycerides 63 mg/dL (<150)
[2017-07-08] MEDS: metFORMIN 500 MG TAB PO SCH ×3 (05:39→17:06)
[2017-07-08 05:57] LABS: Glucose,Whole Blood 174 mg/dL (75-99)
[2017-07-08] MEDS: methylPREDNISolone SOD SUCCI 125 MG/2 ML VIAL IV SCH ×4 (06:09→23:26)
[2017-07-08] MEDS: INSULIN ASPART 100 UNIT/ML 1 ML 10 ML VIAL SQ SCH ×4 (06:10→21:22)
[2017-07-08] MEDS: IPRATROPIUM-ALBUTEROL 3 ML NEB INHALATION SCH ×4 (08:41→20:12)
[2017-07-08] MEDS: SYMBICORT 80-4.5 MCG INHALER INHALATION SCH ×2 (08:47→20:10)
[2017-07-08] MEDS ORDERED: HEPARIN SODIUM,PORCINE 5,000 UNIT/ML 1 ML VIAL IV PRN (08:57)
[2017-07-08] MEDS ORDERED: ALLOPURINOL 100 MG TAB PO SCH (09:00)
[2017-07-08] MEDS ORDERED: predniSONE 10 MG TAB PO SCH (09:00)
--- NOTE | 2017-07-08 09:10 | P.CRDCN ---
History of Present Illness Consult date: 07/08/17 Requesting physician: Emilee Gale Reason for Consult (text): defibrillator discharge, NSTEMI Chief complaint: ICD discharge, shortness of breath History of present illness: Is an 76-year-old gentleman with history of CAD with prior stenting of the proximal LAD with most recent cardiac catheterization in April 2016 that showed a mid LAD with 60% lesion and critical stenosis of the left circumflex which was successfully stented, ischemic cardiomyopathy, status post AICD placement, asthma. He was recently admitted to the hospital with acute asthma exacerbation which time we were consulted for abnormal EKG with changes of T- wave inversion in the lateral leads but did not appear to be new. He was discharged home on steroids. According to the patient yesterday morning early he was going up and down his stairs working on his furnace developed some chest tightness as well as some shortness of breath was on the toilet when he received 2 shocks from his ICD. Since that time, his main complaint is shortness of breath. Since admission, patient has been having runs of paroxysmal atrial fibrillation with rapid ventricular response. I spoke with the device nurse at the office who noted tachycardia episodes and his device interrogation in December that appeared to be consistent with paroxysmal atrial fibrillation with rapid Ventricular response and he was started on Xarelto at that time. He was not currently taking anticoagulant at home. Chest x-ray done at [facility] showed new retrocardiac opacity and left basilar opacity that could represent atelectasis or pneumonia. ABGs showed hypoxemia, NT proBNP was elevated at 3080 his magnesium level was low at 1.3 and he was supplemented with a repeat of 1.8 lactic acid was elevated. Troponins have been elevated at 0.249, 0.359, 0.264 and 0.339. Upon examination, patient is sitting up at the site of the bed. She is visibly short of breath with speaking. He does complain of some shortness of breath, denies further complaints of chest discomfort. He denies complaints of dizziness, lightheadedness or palpitations. Past Medical History Past Medical History: Asthma, Coronary Artery Disease (CAD), Cancer, Diabetes Mellitus, Hearing Disorder / Deafness, Myocardial Infarction (VT), Prostate Disorder, Respiratory Disorder Additional Past Medical History / Comment(s): Prostate cancer (2009) with radiation Last Myocardial Infarction Date:: 2015 History of Any Multi-Drug Resistant Organisms: None Reported Past Surgical History: AICD, Appendectomy, Cholecystectomy, Heart Catheterization With Stent, Joint Replacement, Pacemaker, Tonsillectomy Additional Past Surgical History / Comment(s): nasal surgery for nasal polyps, right hip replacement Past Anesthesia/Blood Transfusion Reactions: No Reported Reaction Date of Last Stent Placement:: 2015 Type of Cardiac Device: Permanent Pacemaker, AICD Device Placement Date:: 2014 Smoking Status: Former smoker - Past Family History Mother Family Medical History: No Reported History Father Family Medical History: Myocardial Infarction (VT) Additional Family Medical History / Comment(s): emphysema Medications and Allergies Home Medications Medication Instructions Recorded Confirmed Type Allopurinol [Zyloprim] 100 mg PO DAILY 05/09/15 07/07/17 History Allopurinol [Zyloprim] 300 mg PO DAILY 05/09/15 07/07/17 History Atorvastatin [Lipitor] 40 mg PO DAILY 05/09/15 07/07/17 History Metoprolol Tartrate [Lopressor] 25 mg PO BID 05/09/15 07/07/17 History Tamsulosin HCl [Flomax] 0.4 mg PO DAILY 05/13/15 07/07/17 History Clopidogrel [Plavix] 75 mg PO DAILY #30 tab 05/10/16 07/07/17 Rx Nitroglycerin Sl Tabs [Nitrostat] 0.4 mg SUBLINGUAL Q5M PRN #25 tab 05/10/1601/14 Rx Spironolactone [Aldactone] 25 mg PO DAILY #30 tab 05/10/16 07/07/17 Rx metFORMIN HCL [Glucophage] 1,000 mg PO BID #0 05/10/16 07/07/17 Rx Albuterol Nebulized [Ventolin 2.5 mg INHALATION RT-Q4H 07/02/17 07/07/17 History Nebulized] Aspirin 81 mg PO DAILY 07/02/17 07/07/17 History Lisinopril [Prinivil] 5 mg PO HS 07/02/17 07/07/17 History Fluticasone/Salmeterol [Advair 1 inhalation PO BID #1 inhaler 07/03/17 07/07/17 Rx 250-50 Diskus] Isosorbide Mononitrate ER [Imdur] 15 mg PO DAILY #30 dose 07/03/17 07/07/17 Rx predniSONE See Taper PO DAILY 07/07/17 07/07/17 History Allergies Allergy/AdvReac Type Severity Reaction Status Date / Time Tetracyclines Allergy Rash/Hives Verified 07/07/17 13:07 aspirin AdvReac was told Verified 07/07/17 13:07 not to take r/t nasal polyps Physical Exam Vitals: Vital Signs Temp Pulse Pulse Pulse Resp BP BP 07/08/17 05:05 76 07/08/17 04:54 78 07/08/17 04:00 97.6 F 56 L 16 135/71 07/08/17 00:16 78 07/08/17 00:08 75 07/07/17 23:30 98.1 F 71 16 124/80 07/07/17 22:17 78 16 07/07/17 22:08 84 16 07/07/17 20:08 77 18 07/07/17 20:00 97.9 F 76 18 124/81 07/07/17 19:57 74 18 07/07/17 19:08 96.1 F L 105 H 24 134/94 07/07/17 18:18 07/07/17 18:13 121 H 148/104 07/07/17 18:08 68 18 07/07/17 17:52 59 L 18 07/07/17 16:00 24 07/07/17 15:33 98.3 F 104 H 24 155/99 07/07/17 14:40 104 H 07/07/17 14:33 101 H 07/07/17 12:38 98.4 F 22 L 115 H 151/86 Pulse Ox 07/08/17 05:05 07/08/17 04:54 07/08/17 04:00 96 07/08/17 00:16 07/08/17 00:08 07/07/17 23:30 96 07/07/17 22:17 07/07/17 22:08 07/07/17 20:08 07/07/17 20:00 96 07/07/17 19:57 07/07/17 19:08 95 07/07/17 18:18 99 07/07/17 18:13 07/07/17 18:08 07/07/17 17:52 95 07/07/17 16:00 07/07/17 15:33 93 L 07/07/17 14:40 07/07/17 14:33 07/07/17 12:38 100 Intake and Output 07/07/17 07/08/17 07/08/17 22:59 06:59 14:59 Intake Total 700.912 430.272 Output Total 400 1400 Balance 300.912 -969.728 Intake: IV 240 282 0.9 60 80 Heparin Sod,Pork in 0.45% 130 152 NaCl 25,000 unit In 0.45 % NaCl 1 500ml.bag @ 12 UNITS/KG/HR 16.32 mls/hr IV .Q24H [facility] Rx#: [id number] Piperacillin-Tazobactam 3 50 50 .375 gm In Dextrose/Water 1 50ml.bag @ 12.5 mls/hr IVPB Q8HR [facility] Rx#: [id number] Intake, IV Titration 100.912 148.272 Amount Heparin Sod,Pork in 0.45% 100.912 148.272 NaCl 25,000 unit In 0.45 % NaCl 1 500ml.bag @ 12 UNITS/KG/HR 16.32 mls/hr IV .Q24H [facility] Rx#: [id number] Oral 360 Output: Urine 400 1400 Other: Voiding Method Urinal Urinal # Voids 1 2 Weight 67.5 kg PHYSICAL EXAMINATION: HEENT: Head is atraumatic, normocephalic. Pupils equal, round. Neck is supple. There is no elevated jugular venous pressure. HEART EXAMINATION: Heart sounds regular, S1 and S2 normal. No murmur or gallop heard. CHEST EXAMINATION: Lungs reveal diffuse wheezing throughout. No chest wall tenderness is noted on palpation or with deep breathing. ABDOMEN: Soft, nontender. Bowel sounds are heard. No organomegaly noted. EXTREMITIES: 2+ peripheral pulses with no evidence of peripheral edema and no calf tenderness noted. NEUROLOGIC patient is awake, alert and oriented x3. . Results 07/08/17 04:15 07/08/17 04:15 Cardiac Enzymes 07/07/17 07/07/17 07/07/17 Range/Units 12:50 12:50 18:31 AST 30 (17-59) U/L CK-MB (CK-2) 6.2 H* (0.0-2.4) ng/mL Troponin I 0.359 H* 0.264 H* (0.000-0.034) ng/mL 07/08/17 Range/Units 00:23 AST (17-59) U/L CK-MB (CK-2) 6.5 H* (0.0-2.4) ng/mL Troponin I 0.339 H* (0.000-0.034) ng/mL Coagulation 07/07/17 07/07/17 07/08/17 Range/Units 12:50 20:54 04:15 PT 10.4 (9.0-12.0) sec APTT 22.5 43.6 H 46.8 H (22.0-30.0) sec Lipids 07/08/17 Range/Units 04:15 Triglycerides 63 (<150) mg/dL Cholesterol 98 (<200) mg/dL HDL Cholesterol 64 H (40-60) mg/dL CBC 07/07/17 07/08/17 Range/Units 12:50 04:15 WBC 8.8 6.7 (3.8-10.6) k/uL RBC 4.59 4.42 (4.30-5.90) m/uL Hgb 13.7 13.5 (13.0-17.5) gm/dL Hct 42.7 42.6 (39.0-53.0) % Plt Count 219 203 (150-450) k/uL Comprehensive Metabolic Panel 07/07/17 07/08/17 Range/Units 12:50 04:15 Sodium 137 134 L (137-145) mmol/L Potassium 4.6 4.4 (3.5-5.1) mmol/L Chloride 101 99 (98-107) mmol/L Carbon Dioxide 23 26 (22-30) mmol/L BUN 11 15 (9-20) mg/dL Creatinine 0.60 L 0.70 (0.66-1.25) mg/dL Glucose 242 H 182 H (74-99) mg/dL Calcium 8.9 8.7 (8.4-10.2) mg/dL AST 30 (17-59) U/L ALT 41 (21-72) U/L Alkaline Phosphatase 82 (38-126) U/L Total Protein 6.2 L (6.3-8.2) g/dL Albumin 3.9 (3.5-5.0) g/dL Current Medications Generic Name Dose Route Start Last Admin Trade Name Freq PRN Reason Stop Dose Admin Albuterol/Ipratropium 3 ml 07/07/17 16:00 07/07/17 19:56 Duoneb 0.5 Mg-3 Mg/3 Ml Soln INHALATION 3 ml RT-QID [facility] Administration Albuterol/Ipratropium 3 ml 07/07/17 15:51 07/08/17 04:50 Duoneb 0.5 Mg-3 Mg/3 Ml Soln INHALATION 3 ml RT-Q2H PRN Administration Shortness Of Breath Or Wheezing Allopurinol 400 mg 07/08/17 09:00 Zyloprim PO DAILY [facility] Aspirin 325 mg 07/08/17 09:00 Aspirin PO DAILY [facility] Atorvastatin Calcium 40 mg 07/08/17 09:00 Lipitor PO DAILY [facility] Budesonide/Formoterol Fumarate 2 puff 07/07/17 20:00 07/07/17 19:56 Symbicort 80-4.5 Mcg Inhaler INHALATION 2 puff RT-BID [facility] Administration Clopidogrel Bisulfate 75 mg 07/08/17 09:00 Plavix PO DAILY [facility] Heparin Sodium/Sodium Chloride 500 mls @ 16.32 mls/hr 07/07/17 14:45 05:11 25,000 unit/ Sodium Chloride IV 14 units/kg/hr .Q24H [facility] 19.05 mls/hr Protocol Titration 12 UNITS/KG/HR Piperacillin/Tazobactam/ 50 mls @ 12.5 mls/hr 07/07/17 16:00 07/07/17 23:12 Dextrose 3.375 gm/ IV Solution IVPB 12.5 mls/hr Q8HR [facility] Administration Insulin Aspart 0 unit 07/07/17 17:30 07/08/17 06:10 Novolog SQ 4 unit ACHS [facility] Administration Protocol Isosorbide Mononitrate 15 mg 07/08/17 09:00 Imdur PO DAILY [facility] Lisinopril 5 mg 07/07/17 21:00 07/07/17 21:06 Zestril PO 5 mg HS [facility] Administration Metformin HCl 1,000 mg 07/07/17 17:30 07/08/17 05:39 Glucophage PO Not Given AC-BID [facility] Methylprednisolone Sodium Succinate 60 mg 07/07/17 20:30 07/08/17 06:09 Solu-Medrol IV 60 mg Q6HR [facility] Administration Metoprolol Tartrate 50 mg 07/07/17 18:30 07/07/17 18:36 Lopressor PO 50 mg BID [facility] Administration Nitroglycerin 0.4 mg 07/07/17 15:52 Nitrostat SUBLINGUAL Q5M PRN Chest Pain Spironolactone 25 mg 07/08/17 09:00 Aldactone PO DAILY [facility] Tamsulosin HCl 0.4 mg 07/07/17 16:00 07/07/17 17:05 Flomax PO 0.4 mg DAILY [facility] Administration Intake and Output 07/07/17 07/08/17 07/08/17 22:59 06:59 14:59 Intake Total 700.912 430.272 Output Total 400 1400 Balance 300.912 -969.728 Intake: IV 240 282 0.9 60 80 Heparin Sod,Pork in 0.45% 130 152 NaCl 25,000 unit In 0.45 % NaCl 1 500ml.bag @ 12 UNITS/KG/HR 16.32 mls/hr IV .Q24H [facility] Rx#: [id number] Piperacillin-Tazobactam 3 50 50 .375 gm In Dextrose/Water 1 50ml.bag @ 12.5 mls/hr IVPB Q8HR [facility] Rx#: [id number] Intake, IV Titration 100.912 148.272 Amount Heparin Sod,Pork in 0.45% 100.912 148.272 NaCl 25,000 unit In 0.45 % NaCl 1 500ml.bag @ 12 UNITS/KG/HR 16.32 mls/hr IV .Q24H [facility] Rx#: [id number] Oral 360 Output: Urine 400 1400 Other: Voiding Method Urinal Urinal # Voids 1 2 Weight 67.5 kg 07/08/17 04:15 07/08/17 04:15 EKG Interpretations (text) Sinus tachycardia with PACs, patient also having runs of paroxysmal atrial fibrillation Assessment and Plan Assessment: #1 ICD discharge, likely secondary to A. fib with RVR #2 paroxysmal atrial fibrillation with rapid ventricular response, metoprolol has been increased #3 ischemic cardiomyopathy #4 elevated troponins likely secondary to ICD discharge #5 asthma Plan: From cardiology 's perspective, we will have a [employer] interrogate patient's device. We will obtain a 2-D echo with Doppler. Continue metoprolol titrate 50 mg by mouth twice a day. We will add amiodarone. Further recommendations to follow. AUTOMATIC DIE CUTTING MACHINE OPERATOR note has been reviewed, I agree with a documented findings and plan of care. Patient was seen and examined.
[2017-07-08] MEDS ORDERED: DEXTROSE 5% IN WATER 100 ML with AMIODARONE 150 MG IV ONE (09:30)
[2017-07-08] MEDS: PIPERACILLIN-TAZOBACTAM 3.375 GM in DEXTROSE/WATER 1 50ML.BAG IVPB SCH ×3 (09:53→23:27)
[2017-07-08] MEDS: CLOPIDOGREL 75 MG TAB PO SCH (09:55)
[2017-07-08] MEDS: ALLOPURINOL 100 MG TAB PO SCH (09:55)
[2017-07-08] MEDS: TAMSULOSIN 0.4 MG CAP.ER.24H PO SCH (09:56)
[2017-07-08] MEDS: ATORVASTATIN 40 MG TAB PO SCH (09:56)
[2017-07-08] MEDS: SPIRONOLACTONE 25 MG TAB PO SCH (09:56)
[2017-07-08] MEDS: AMIODARONE 450 MG in DEXTROSE 5% IN WATER 250 ML IV SCH ×6 (11:19→23:27)
[2017-07-08] MEDS: ASPIRIN 325 MG TAB PO SCH (11:20)
[2017-07-08] MEDS: METOPROLOL TARTRATE 50 MG TAB PO SCH ×2 (11:51→21:19)
[2017-07-08 12:02] LABS: Glucose,Whole Blood 420 mg/dL (75-99)
[2017-07-08] MEDS ORDERED: INSULIN ASPART 100 UNIT/ML 1 ML 10 ML VIAL SQ ONE (12:15)
--- NOTE | 2017-07-08 13:02 | ECHOF ---
Referral Reason:ICD discharge, shortness of breath MEASUREMENTS -------- HEIGHT: 165.1 cm WEIGHT: 67.1 kg BP: 135/71 RVIDd: 3.5 cm (< 3.3) IVSd: 1.2 cm (0.6 - 1.1) LVIDd: 6.0 cm (3.9 - 5.3) LVPWd: 1.1 cm (0.6 - 1.1) IVSs: 1.6 cm LVIDs: 5.3 cm LVPWs: 1.4 cm LA Diam: 3.9 cm (2.7 - 3.8) LAESV Index (A-L): 41.07 ml/m Ao Diam: 3.5 cm (2.0 - 3.7) AV Cusp: 1.9 cm (1.5 - 2.6) MV EXCURSION: 15.618 mm (> 18.000) MV EF SLOPE: 58 mm/s (70 - 150) EPSS: 2.4 cm AV maxP.47 mmHg AV meanP.21 mmHg RAP: 5.00 mmHg RVSP: 39.07 mmHg FINDINGS -------- Pacerwire seen in RV and RA. This was a technically adequate study. The left ventricle is mildly dilated. There is borderline concentric left ventricular hypertrophy. There is severe global hypokinesis of LV . Overall left ventricular systolic function is severely impaired with, an EF between 20 - 25 %. The right ventricle is mildly enlarged. LA is severely dilated >40 ml/m2 The right atrium is normal in size. There is mild aortic valve sclerosis. Peak/mean gradient across the Aortic Valve is 12.47mmHg / 6.2 1mmHg. Mild mitral annular calcification present. Mild mitral regurgitation is present. Mild tricuspid regurgitation present. There is mild pulmonary hypertension. The right ventricular systolic pressure, as measured by Doppler, is 39.07mmHg. Trace/mild (physiologic) pulmonic regurgitation. The aortic root size is normal. The inferior vena cava is mildly dilated. There is no pericardial effusion. CONCLUSIONS -------- 1. Pacerwire seen in RV and RA. 2. This was a technically adequate study. 3. The left ventricle is mildly dilated. 4. There is borderline concentric left ventricular hypertrophy. 5. There is severe global hypokinesis of LV . 6. Overall left ventricular systolic function is severely impaired with, an EF between 20 - 25 %. 7. The right ventricle is mildly enlarged. 8. LA is severely dilated >40 ml/m2 9. There is mild aortic valve sclerosis. 10. Peak/mean gradient across the Aortic Valve is 12.47mmHg / 6.21mmHg. 11. Mild mitral annular calcification present. 12. Mild mitral regurgitation is present. 13. Mild tricuspid regurgitation present. 14. There is mild pulmonary hypertension. 15. Trace/mild (physiologic) pulmonic regurgitation. 16. The aortic root size is normal. 17. The inferior vena cava is mildly dilated. 18. There is no pericardial effusion. ACCOUNT LEADER: Ro Peters RDCS
[2017-07-08 13:05] LABS: Glucose,Whole Blood 303 mg/dL (75-99)
[2017-07-08 14:40] LABS: Glucose,Whole Blood 70 mg/dL (75-99)
[2017-07-08 14:40] LABS: Glucose,Whole Blood 85 mg/dL (75-99)
[2017-07-08] MEDS: HEPARIN SOD,PORK IN 0.45% NACL 25,000 UNIT in 0.45% NACL 1 500ML.BAG IV SCH (15:13)
[2017-07-08] MEDS: ISOSORBIDE MONONITRATE ER 15 MG TAB PO SCH (15:13)
[2017-07-08 15:50] LABS: Glucose,Whole Blood 91 mg/dL (75-99)
[2017-07-08 16:53] LABS: Glucose,Whole Blood 149 mg/dL (75-99)
--- NOTE | 2017-07-08 18:49 | P.PN ---
Subjective Progress Note Date: 07/08/17 Progress note being dictated for Dr. Gale. Interval history: This is a 76-year-old gentleman status post AICD firing, ruling out cardiac arrhythmia, possible purulent acute bronchitis, or early pneumonia and multiple other medical issues. Telemetry reporting proximal atrial fibrillation, currently sinus rhythm. Evaluated by cardiology. Maintained on both amiodarone and heparin drips. Troponin 0.339, 0.264, 0.359. Echo reporting severe global hypokinesis of anxiety, severely impaired LV function, EF between 20 and 25%, severely dilated LA, mild pulmonary hypertension. Device interrogation pending. Denies chest pain, palpitations. Complains of shortness of breath with minimal exertion. Objective - Vital Signs Vital signs: Vital Signs Temp 97.4 F L 07/08/17 15:10 Pulse 70 07/08/17 18:10 Resp 24 07/08/17 15:59 BP 136/98 07/08/17 15:10 Pulse Ox 93 L 07/08/17 18:10 Intake & Output 07/07/17 07/08/17 07/08/17 18:59 06:59 18:59 Intake Total 360 771.184 683.406 Output Total 400 1400 450 Balance -40 -628.816 233.406 Weight 68.039 kg 67.5 kg Intake: IV 522 100 0.9 140 Dextrose 5% in Water 100 100 ml @ 618 mls/hr IV .Q10M ONE with Amiodarone 150 mg Rx#:[id number] Heparin Sod,Pork in 0.45% 282 NaCl 25,000 unit In 0.45 % NaCl 1 500ml.bag @ 12 UNITS/KG/HR 16.32 mls/hr IV .Q24H [facility] Rx#: [id number] Piperacillin-Tazobactam 3 100 .375 gm In Dextrose/Water 1 50ml.bag @ 12.5 mls/hr IVPB Q8HR [facility] Rx#: [id number] Intake, IV Titration 249.184 403.406 Amount Amiodarone 450 mg In 206.604 Dextrose 5% in Water 250 ml @ 1 MG/MIN 34.53 mls/ hr IV .Q7H31M [facility] Rx#: [id number] Heparin Sod,Pork in 0.45% 249.184 196.802 NaCl 25,000 unit In 0.45 % NaCl 1 500ml.bag @ 12 UNITS/KG/HR 16.32 mls/hr IV .Q24H [facility] Rx#: [id number] Oral 360 180 Output: Urine 400 1400 450 Other: Voiding Method Urinal Urinal Urinal # Voids 2 1 - Exam PHYSICAL EXAM: VITAL SIGNS: As above GENERAL: Sitting up in bed, no acute distress HEENT: Conjunctivae normal. eyes normal. Oral mucosa moist NECK: No JVD. No thyroid enlargement. No LNs CARDIOVASCULAR: S1, S2 muffled. No murmur RESPIRATION: Breath sounds diminished in the bases. [Bilateral scattered rhonchi ,crackles. Prolonged expiratory wheezing ABDOMEN: Soft, nontender . No guarding. no masses palpable.Bowel sounds heard. LEGS: No edema. no swelling PSYCHIATRY: Alert and oriented -3, mood and affect normal. NERVOUS SYSTEM: Cranial N 2-12 grossly normal. Moves all 4 limbs. Diffuse weakness No focal deficits. Skin: no ulcer no rash Joints: No active swelling. No inflammation. Lymphatic system. No LN neck axilla or groin. - Labs CBC & Chem 7: 07/08/17 04:15 07/08/17 04:15 Labs: Abnormal Lab Results - Last 24 Hours (Table) 07/07/17 07/07/17 07/07/17 Range/Units 12:50 18:31 18:31 Lymphocytes # (1.0-4.8) k/uL APTT (22.0-30.0) sec Sodium (137-145) mmol/L Glucose (74-99) mg/dL POC Glucose (mg/dL) (75-99) mg/dL Hemoglobin A1c 6.7 H (4.0-6.0) % Plasma Lactic Acid Deep 5.7 H* (0.7-2.0) mmol/L Total Creatine Kinase 215 H (55-170) U/L CK-MB (CK-2) 6.2 H* (0.0-2.4) ng/mL Troponin I 0.264 H* (0.000-0.034) ng/mL HDL Cholesterol (40-60) mg/dL 07/07/17 07/07/17 07/08/17 Range/Units 20:54 21:07 00:23 Lymphocytes # (1.0-4.8) k/uL APTT 43.6 H (22.0-30.0) sec Sodium (137-145) mmol/L Glucose (74-99) mg/dL POC Glucose (mg/dL) 105 H (75-99) mg/dL Hemoglobin A1c (4.0-6.0) % Plasma Lactic Acid Deep (0.7-2.0) mmol/L Total Creatine Kinase 199 H (55-170) U/L CK-MB (CK-2) 6.5 H* (0.0-2.4) ng/mL Troponin I 0.339 H* (0.000-0.034) ng/mL HDL Cholesterol (40-60) mg/dL 07/08/17 07/08/17 07/08/17 Range/Units 04:15 04:15 04:15 Lymphocytes # 0.4 L (1.0-4.8) k/uL APTT 46.8 H (22.0-30.0) sec Sodium 134 L (137-145) mmol/L Glucose 182 H (74-99) mg/dL POC Glucose (mg/dL) (75-99) mg/dL Hemoglobin A1c (4.0-6.0) % Plasma Lactic Acid Deep (0.7-2.0) mmol/L Total Creatine Kinase (55-170) U/L CK-MB (CK-2) (0.0-2.4) ng/mL Troponin I (0.000-0.034) ng/mL HDL Cholesterol 64 H (40-60) mg/dL 07/08/17 07/08/17 07/08/17 Range/Units 05:56 11:08 11:58 Lymphocytes # (1.0-4.8) k/uL APTT 43.5 H (22.0-30.0) sec Sodium (137-145) mmol/L Glucose (74-99) mg/dL POC Glucose (mg/dL) 174 H 420 H (75-99) mg/dL Hemoglobin A1c (4.0-6.0) % Plasma Lactic Acid Deep (0.7-2.0) mmol/L Total Creatine Kinase (55-170) U/L CK-MB (CK-2) (0.0-2.4) ng/mL Troponin I (0.000-0.034) ng/mL HDL Cholesterol (40-60) mg/dL 07/08/17 07/08/17 07/08/17 Range/Units 13:03 14:36 16:49 Lymphocytes # (1.0-4.8) k/uL APTT (22.0-30.0) sec Sodium (137-145) mmol/L Glucose (74-99) mg/dL POC Glucose (mg/dL) 303 H 70 L 149 H (75-99) mg/dL Hemoglobin A1c (4.0-6.0) % Plasma Lactic Acid Deep (0.7-2.0) mmol/L Total Creatine Kinase (55-170) U/L CK-MB (CK-2) (0.0-2.4) ng/mL Troponin I (0.000-0.034) ng/mL HDL Cholesterol (40-60) mg/dL Microbiology - Last 24 Hours (Table) 07/07/17 16:34 Urine Culture - Preliminary Urine,Voided Assessment and Plan Assessment: 1. Status post AICD firing, ruling out cardiac arrhythmia 2. Proximal atrial fibrillation with RVR, currently sinus rhythm 3. Possible purulent acute bronchitis or early pneumonia 4. Elevated lactic acid, multifactorial 5. Elevated troponins up to 0.359 6. Chronic congestive heart failure, systolic dysfunction with some ischemic cardiomyopathy Plan: Continue on current medication regime , beta jaspreet, monitoring and symptomatic treatment. Nebulized bronchodilators added to med regime. Antiarrhythmics as per cardiology. Heparin drip as per protocol. Follow closely with cardiology. Close monitoring of electrolytes with repeat labs ordered for a.m. The impression and plan of care has been dictated as directed. : I performed a history and examination of this patient, discussed the same with the dictator. I agree with the dictator's note ,documented as a scribe. Any additional findings or plans will be noted.
[2017-07-08] MEDS ORDERED: MENTHOL (NICE) LOZENGE MUCOUS MEM PRN (18:50)
[2017-07-08 20:26] LABS: Glucose,Whole Blood 241 mg/dL (75-99)
[2017-07-08] MEDS: LISINOPRIL 5 MG TAB PO SCH (21:20)
[2017-07-08] MEDS: MELATONIN 3 MG TABLET PO SCH (23:26)
[2017-07-09] MEDS: IPRATROPIUM-ALBUTEROL 3 ML NEB INHALATION PRN ×2 (04:18→17:09)
[2017-07-09] MEDS: methylPREDNISolone SOD SUCCI 125 MG/2 ML VIAL IV SCH ×4 (05:47→23:51)
[2017-07-09] MEDS: metFORMIN 500 MG TAB PO SCH ×2 (05:48→17:37)
[2017-07-09 05:57] LABS: Glucose,Whole Blood 145 mg/dL (75-99)
[2017-07-09] MEDS: INSULIN ASPART 100 UNIT/ML 1 ML 10 ML VIAL SQ SCH ×4 (05:57→21:16)
[2017-07-09 07:03] LABS: Basophils % (A) 0 %; Eosinophils % (A) 0 %; HCT 39.5 % (39.0-53.0); Lymphocytes # (A) 0.6 k/uL (1.0-4.8); Lymphocytes % (A) 5 %; MCH 29.7 pg (25.0-35.0); MCHC 30.4 g/dL (31.0-37.0); MCV 97.7 fL (80.0-100.0); Monocytes # (A) 0.6 k/uL (0-1.0); Monocytes % (A) 5 %; Neutrophils # (A) 9.7 k/uL (1.3-7.7); Neutrophils % (A) 88 %; Platelet Count 206 k/uL (150-450); RBC 4.05 m/uL (4.30-5.90); RDW 14.1 % (11.5-15.5)
[2017-07-09 07:21] LABS: Anion Gap 9 mmol/L; Blood Urea Nitrogen 22 mg/dL (9-20); Calcium 8.4 mg/dL (8.4-10.2); Carbon Dioxide 26 mmol/L (22-30); Chloride 100 mmol/L (98-107); Glucose 133 mg/dL (74-99); Magnesium 1.6 mg/dL (1.6-2.3); Sodium 135 mmol/L (137-145)
[2017-07-09] MEDS: SYMBICORT 80-4.5 MCG INHALER INHALATION SCH ×2 (08:01→20:39)
[2017-07-09] MEDS: IPRATROPIUM-ALBUTEROL 3 ML NEB INHALATION SCH ×4 (08:01→20:41)
[2017-07-09] MEDS: AMIODARONE 450 MG in DEXTROSE 5% IN WATER 250 ML IV SCH ×2 (08:45)
[2017-07-09] MEDS: PIPERACILLIN-TAZOBACTAM 3.375 GM in DEXTROSE/WATER 1 50ML.BAG IVPB SCH ×3 (08:45→23:51)
[2017-07-09] MEDS: ASPIRIN 325 MG TAB PO SCH (08:47)
[2017-07-09] MEDS: TAMSULOSIN 0.4 MG CAP.ER.24H PO SCH (08:47)
[2017-07-09] MEDS: SPIRONOLACTONE 25 MG TAB PO SCH (08:47)
[2017-07-09] MEDS: ALLOPURINOL 100 MG TAB PO SCH (08:47)
[2017-07-09] MEDS: CLOPIDOGREL 75 MG TAB PO SCH (08:47)
[2017-07-09] MEDS: METOPROLOL TARTRATE 50 MG TAB PO SCH ×2 (08:47→20:15)
[2017-07-09] MEDS: ISOSORBIDE MONONITRATE ER 15 MG TAB PO SCH (08:47)
[2017-07-09] MEDS: ATORVASTATIN 40 MG TAB PO SCH (08:47)
[2017-07-09 11:43] LABS: Glucose,Whole Blood 128 mg/dL (75-99)
[2017-07-09] MEDS ORDERED: Magnesium Replacement Protocol 1 EACH MISC MISCELLANE PRN (11:58)
[2017-07-09] MEDS: MAGNESIUM SULFATE-D5W PMX 1 GM in DEXTROSE/WATER 1 100ML.BAG IVPB SCH ×2 (13:19→14:38)
--- NOTE | 2017-07-09 14:05 | P.PN ---
Subjective Progress Note Date: 07/09/17 This is a 76-year-old gentleman with history of ischemic heart disease and previous stent placement, cardiomyopathy ,status post AICD placement who was admitted with main complaints of shortness of breath and discharge from AICD. Upon interrogation yesterday, we found that patient was having gait fibrillation with rapid ventricular response which resulted in inappropriate shocks. Since admission patient has been on amiodarone and also on increased dose of the beta jaspreet. So far. Patient has been doing well. He is chronically short of breath. Denies any chest pain. Patient was also advised to go on anticoagulation therapy. Previously he was prescribed Xarelto but patient could not take it because of insurance problems. We'll going to start him on Coumadin and adjust the dose accordingly. We will switch from IV amiodarone to by mouth amiodarone. Increase activity as tolerated. Possible discharge within next 24-48 hours Objective - Vital Signs Vital signs: Vital Signs Temp 97.4 F L 07/09/17 07:54 Pulse 60 07/09/17 11:42 Resp 14 07/09/17 11:42 BP 115/75 07/09/17 11:39 Pulse Ox 97 07/09/17 11:39 Intake & Output 07/08/17 07/09/17 07/09/17 18:59 06:59 18:59 Intake Total 863.406 598.701 Output Total 450 900 250 Balance 413.406 -900 348.701 Weight 69.9 kg Intake: IV 100 37 0.9 20 Dextrose 5% in Water 100 100 17 ml @ 618 mls/hr IV .Q10M ONE with Amiodarone 150 mg Rx#:[id number] Intake, IV Titration 403.406 381.701 Amount Amiodarone 450 mg In 206.604 Dextrose 5% in Water 250 ml @ 1 MG/MIN 34.53 mls/ hr IV .Q7H31M YECENIA Rx#: [id number] Heparin Sod,Pork in 0.45% 196.802 381.701 NaCl 25,000 unit In 0.45 % NaCl 1 500ml.bag @ 12 UNITS/KG/HR 16.32 mls/hr IV .Q24H YECENIA Rx#: [id number] Oral 360 180 Output: Urine 450 900 250 Other: Voiding Method Urinal Urinal # Voids 1 0 - Exam GENERAL EXAM: Patient is alert and oriented and doesn't appear to be in any acute distress HEENT: Normocephalic. Normal reaction of pupils, equal size, normal range of extraocular motion. No erythema or exudates in the throat. NECK: No masses, no nuchal rigidity. CHEST: No chest wall deformity. LUNGS: Diminished air exchange and rhonchi HEART: S1 and S2 normal with no audible mumurs or gallops. Regular rhythm, femorals equal on both sides.. ABDOMEN: No hepatosplenomegaly, normal bowel sounds, no guarding or rigidity. SKIN: No rashes CENTRAL NERVOUS SYSTEM: No focal deficits. EXTREMITIES: No cyanosis, clubbing or edema. - Labs CBC & Chem 7: 07/09/17 05:39 07/09/17 05:39 Labs: Abnormal Lab Results - Last 24 Hours (Table) 07/08/17 07/08/17 07/08/17 Range/Units 14:36 16:49 19:00 WBC (3.8-10.6) k/uL RBC (4.30-5.90) m/uL Hgb (13.0-17.5) gm/dL MCHC (31.0-37.0) g/dL Neutrophils # (1.3-7.7) k/uL Lymphocytes # (1.0-4.8) k/uL APTT 74.9 H (22.0-30.0) sec Sodium (137-145) mmol/L BUN (9-20) mg/dL Glucose (74-99) mg/dL POC Glucose (mg/dL) 70 L 149 H (75-99) mg/dL 07/08/17 07/09/17 07/09/17 Range/Units 20:15 05:39 05:39 WBC 11.0 H (3.8-10.6) k/uL RBC 4.05 L (4.30-5.90) m/uL Hgb 12.0 L (13.0-17.5) gm/dL MCHC 30.4 L (31.0-37.0) g/dL Neutrophils # 9.7 H (1.3-7.7) k/uL Lymphocytes # 0.6 L (1.0-4.8) k/uL APTT (22.0-30.0) sec Sodium 135 L (137-145) mmol/L BUN 22 H (9-20) mg/dL Glucose 133 H (74-99) mg/dL POC Glucose (mg/dL) 241 H (75-99) mg/dL 07/09/17 07/09/17 07/09/17 Range/Units 05:39 05:56 11:39 WBC (3.8-10.6) k/uL RBC (4.30-5.90) m/uL Hgb (13.0-17.5) gm/dL MCHC (31.0-37.0) g/dL Neutrophils # (1.3-7.7) k/uL Lymphocytes # (1.0-4.8) k/uL APTT 87.9 H (22.0-30.0) sec Sodium (137-145) mmol/L BUN (9-20) mg/dL Glucose (74-99) mg/dL POC Glucose (mg/dL) 145 H 128 H (75-99) mg/dL Microbiology - Last 24 Hours (Table) 07/07/17 16:34 Urine Culture - Final Urine,Voided Assessment and Plan (1) Defibrillator discharge Current Visit: Yes Status: Acute Code(s): Z45.02 - ENCNTR FOR ADJUST AND MGMT OF AUTOMATIC IMPLNTBL CARD DEFIB SNOMED Code(s): 232288606 (2) Elevated troponin Current Visit: No Status: Acute Code(s): R74.8 - ABNORMAL LEVELS OF OTHER SERUM ENZYMES SNOMED Code(s): 938304386 (3) COPD (chronic obstructive pulmonary disease) Current Visit: Yes Status: Acute Code(s): J44.9 - CHRONIC OBSTRUCTIVE PULMONARY DISEASE, UNSPECIFIED SNOMED Code(s): 32155351 (4) CAD (coronary artery disease) Current Visit: No Status: Acute Code(s): I25.10 - ATHSCL HEART DISEASE OF [place] CORONARY ARTERY W/O ANG PCTRS SNOMED Code(s): 67295894 Plan: Patient remains stable since yesterday. He wants to go home. We will switch to IV amiodarone to by mouth amiodarone. Increase activity. If stable will discharge home tomorrow. Patient is also be started on Coumadin therapy
[2017-07-09] MEDS: AMIODARONE 200 MG TAB PO SCH ×2 (14:36→20:15)
[2017-07-09] MEDS: HEPARIN SOD,PORK IN 0.45% NACL 25,000 UNIT in 0.45% NACL 1 500ML.BAG IV SCH (14:39)
[2017-07-09 17:15] LABS: Glucose,Whole Blood 214 mg/dL (75-99)
--- NOTE | 2017-07-09 17:21 | XR ---
EXAMINATION TYPE: XR chest 1V portable DATE OF EXAM: 07/09/2017 COMPARISON: July 07, 2017 HISTORY: Chest pain TECHNIQUE: Single frontal view of the chest is obtained. FINDINGS: Lungs are clear. No pneumothorax pleural effusion is identified. Cardiac silhouette is mil dly enlarged and stable. There is an implantable cardiac device with one lead noted in the heart. IMPRESSION: No acute process.
--- NOTE | 2017-07-09 17:41 | PN ---
PROGRESS NOTE DATE OF SERVICE: 07/09/2017 This is a 76-year-old gentleman who was admitted with AICD firing, also had paroxysmal atrial fibrillation. The patient has significant shortness of breath and patient possibly had acute tracheobronchitis or early pneumonia. The chest x-ray is reported as showing chronic elevation of the right diaphragm. The patient is on broad- spectrum IV antibiotics and IV steroids. The patient is complaining of shortness of breath at this time. PAST MEDICAL HISTORY: Reviewed. REVIEW OF SYSTEMS: CARDIOVASCULAR: As mentioned earlier. GI: As mentioned earlier. : No dysuria. NERVOUS SYSTEM: As mentioned earlier. CURRENT MEDICATIONS: Reviewed and include DuoNeb q.i.d. and p.r.n., Zyloprim 400 mg daily, Xanax 0.25 t.i.d., Cordarone 200 mg p.o. b.i.d., aspirin 325 mg daily, Lipitor 40 mg p.o. daily, Symbicort 80/4.5 two puffs b.i.d., Plavix 75 mg p.o. daily, heparin drip b.i.d. , Imdur 50 mg., Zestril 5 mg, Melatonin 3 mg, Glucophage, Solu-Medrol 60 IV q.6, Lopressor, Nitrostat, Zosyn 3.5 IV q.6, Aldactone, Flomax. PHYSICAL EXAM: Patient is alert, oriented x3. Pulse 62, blood pressure 140/70, respiration 14, temperature 97 degrees, pulse ox 93% on 2 L. HEENT: Conjunctivae normal. Neck is _no jvd CARDIOVASCULAR SYSTEM: Muffled, S1, S2, normal, No S3, no S4. RESPIRATORY: Breath sounds diminished at the bases, bilateral scattered rhonchi , expiratory wheezing and crackles also heard. ABDOMEN: Soft, nontender. No mass palpable. LEGS: No edema, no swelling. NERVOUS SYSTEM: Higher functions as mentioned earlier, moves all 4 limbs, no focal motor deficits. LYMPHATICS: No lymph node enlargement in the neck or axillae. SKIN: No rash, ulcers, or bleeding. LABS: WBC is 11, hemoglobin is 12, APTT 87.9, and sodium is 135, glucose 128. ASSESSMENT: 1. Status post AICD firing, possible cardiac arrhythmia. 2. Chronic obstructive pulmonary disease acute exacerbation with acute purulent tracheobronchitis and bronchopneumonia. 3. Paroxysmal atrial fibrillation with rapid ventricular rate. concurrent with normal sensitivity. 4. Elevated lactic acid, multifactorial. 5. Elevated troponin up to 0.359, indeterminate. 6. Congestive heart failure with chronic systolic dysfunction with ischemic cardiomyopathy and hyponatremia. RECOMMENDATION: Recommend to continue current management and symptomatic treatment. Otherwise, at this time I would recommend to continue with current medications. Chest x-ray shows evidence of fluid overload. I would recommend diuretics, otherwise IV steroids, monitor blood sugars closely and intensive bronchodilators. IV Amiodarone has been given by Cardiology. Further recommendations to follow. Stop the anticoagulation. Also bedrest along with Cardiology. IV heparin to continue for now. MMODL / IJN: [id number] / LARRY
[2017-07-09] MEDS ORDERED: ACETAMINOPHEN TAB 325 MG TAB PO PRN (18:58)
[2017-07-09] MEDS: MAGNESIUM OXIDE 400 MG TAB PO SCH (20:15)
[2017-07-09] MEDS: LISINOPRIL 5 MG TAB PO SCH (20:15)
[2017-07-09 21:09] LABS: Glucose,Whole Blood 119 mg/dL (75-99)
[2017-07-09] MEDS: ALPRAZolam 0.25 MG TAB PO PRN (21:31)
[2017-07-09] MEDS: MELATONIN 3 MG TABLET PO SCH (21:31)
[2017-07-10] MEDS: IPRATROPIUM-ALBUTEROL 3 ML NEB INHALATION PRN ×2 (01:08→04:33)
[2017-07-10] MEDS: INSULIN ASPART 100 UNIT/ML 1 ML 10 ML VIAL SQ SCH ×2 (06:43→11:42)
[2017-07-10] MEDS: metFORMIN 500 MG TAB PO SCH (06:44)
[2017-07-10] MEDS: methylPREDNISolone SOD SUCCI 125 MG/2 ML VIAL IV SCH ×2 (06:44→11:42)
[2017-07-10 06:45] LABS: Glucose,Whole Blood 202 mg/dL (75-99)
[2017-07-10 07:02] LABS: Basophils % (A) 0 %; Eosinophils % (A) 0 %; HCT 45.9 % (39.0-53.0); HGB 13.5 gm/dL (13.0-17.5); Hypochromasia Slight; Lymphocytes # (A) 0.4 k/uL (1.0-4.8); Lymphocytes % (A) 4 %; MCH 28.8 pg (25.0-35.0); MCHC 29.5 g/dL (31.0-37.0); MCV 97.8 fL (80.0-100.0); Mean Platelet Volume 6.7; Monocytes # (A) 0.3 k/uL (0-1.0); Monocytes % (A) 3 %; Neutrophils # (A) 9.2 k/uL (1.3-7.7); Neutrophils % (A) 92 %; Platelet Count 238 k/uL (150-450); RDW 14.1 % (11.5-15.5)
[2017-07-10 07:30] LABS: Anion Gap 13 mmol/L; Blood Urea Nitrogen 21 mg/dL (9-20); Calcium 8.8 mg/dL (8.4-10.2); Carbon Dioxide 27 mmol/L (22-30); Chloride 99 mmol/L (98-107); Glucose 190 mg/dL (74-99); Magnesium 2.2 mg/dL (1.6-2.3); Potassium 4.7 mmol/L (3.5-5.1); Sodium 139 mmol/L (137-145)
[2017-07-10 07:53] VITALS: TEMP 97.8
[2017-07-10] MEDS: PIPERACILLIN-TAZOBACTAM 3.375 GM in DEXTROSE/WATER 1 50ML.BAG IVPB SCH (07:58)
[2017-07-10] MEDS: ALLOPURINOL 100 MG TAB PO SCH (08:01)
[2017-07-10] MEDS: AMIODARONE 200 MG TAB PO SCH (08:01)
[2017-07-10] MEDS: TAMSULOSIN 0.4 MG CAP.ER.24H PO SCH (08:02)
[2017-07-10] MEDS: ATORVASTATIN 40 MG TAB PO SCH (08:02)
[2017-07-10] MEDS: SPIRONOLACTONE 25 MG TAB PO SCH (08:02)
[2017-07-10] MEDS: ISOSORBIDE MONONITRATE ER 15 MG TAB PO SCH (08:02)
[2017-07-10] MEDS: METOPROLOL TARTRATE 50 MG TAB PO SCH (08:02)
[2017-07-10] MEDS: MAGNESIUM OXIDE 400 MG TAB PO SCH (08:02)
[2017-07-10] MEDS: ASPIRIN 325 MG TAB PO SCH (08:02)
[2017-07-10] MEDS: CLOPIDOGREL 75 MG TAB PO SCH (08:02)
[2017-07-10] MEDS: IPRATROPIUM-ALBUTEROL 3 ML NEB INHALATION SCH ×2 (08:36→12:27)
[2017-07-10] MEDS: SYMBICORT 80-4.5 MCG INHALER INHALATION SCH (08:37)
[2017-07-10] MEDS ORDERED: APIXABAN 5 MG TAB PO SCH (09:00)
[2017-07-10] MEDS: ALPRAZolam 0.25 MG TAB PO PRN (10:14)
--- NOTE | 2017-07-10 11:29 | P.PN ---
Subjective Progress Note Date: 07/10/17 Mr. Gallego is seen and examined today. He is sitting up in bed in no acute distress. He continues to maintain sinus mechanism heart rate in the 60s. He has had no further episodes of atrial fibrillation. He denies chest pain, shortness of breath, dizziness, palpitations or nausea/vomiting. the patient would prefer to try for a NOAC rather than Coumadin. Eliquis was checked and is covered with minimal copay that is reasonable for him. Objective - Vital Signs Vital signs: Vital Signs Temp 97.8 F 07/10/17 07:50 Pulse 68 07/10/17 08:51 Resp 18 07/10/17 08:00 BP 153/76 07/10/17 07:50 Pulse Ox 93 L 07/10/17 08:38 Intake & Output 07/09/17 07/10/17 07/10/17 18:59 06:59 18:59 Intake Total 947.096 340 125 Output Total 400 730 200 Balance 547.096 -390 -75 Weight 69.6 kg Intake: IV 37 340 0.9 20 100 Dextrose 5% in Water 100 17 ml @ 618 mls/hr IV .Q10M ONE with Amiodarone 150 mg Rx#:[id number] Heparin Sod,Pork in 0.45% 190 NaCl 25,000 unit In 0.45 % NaCl 1 500ml.bag @ 12 UNITS/KG/HR 16.32 mls/hr IV .Q24H YECENIA Rx#: [id number] Piperacillin-Tazobactam 3 50 .375 gm In Dextrose/Water 1 50ml.bag @ 12.5 mls/hr IVPB Q8HR YECENIA Rx#: [id number] Intake, IV Titration 494.096 Amount Heparin Sod,Pork in 0.45% 494.096 NaCl 25,000 unit In 0.45 % NaCl 1 500ml.bag @ 12 UNITS/KG/HR 16.32 mls/hr IV .Q24H YECENIA Rx#: [id number] Oral 416 125 Output: Urine 400 730 200 Other: Voiding Method Urinal # Voids 1 - Exam blood pressure 153/76 heart rate 64 GENERAL: Well-appearing, well-nourished and in no acute distress. NECK: Supple without JVD or thyromegaly. LUNGS: Breath sounds clear to auscultation bilaterally. Respiration equal and unlabored. No wheezes, rales or rhonchi.diminished. HEART: Regular rate and rhythm without murmurs, rubs or gallops. S1 and S2 heard. EXTREMITIES: Normal range of motion, no edema. No clubbing or cyanosis. Peripheral pulses intact and strong. - Labs CBC & Chem 7: 07/10/17 06:23 07/10/17 06:23 Labs: Abnormal Lab Results - Last 24 Hours (Table) 07/09/17 07/09/17 07/09/17 Range/Units 11:39 15:36 17:12 MCHC (31.0-37.0) g/dL Neutrophils # (1.3-7.7) k/uL Lymphocytes # (1.0-4.8) k/uL APTT 61.5 H (22.0-30.0) sec BUN (9-20) mg/dL Glucose (74-99) mg/dL POC Glucose (mg/dL) 128 H 214 H (75-99) mg/dL 07/09/17 07/10/17 07/10/17 Range/Units 21:06 06:23 06:23 MCHC 29.5 L (31.0-37.0) g/dL Neutrophils # 9.2 H (1.3-7.7) k/uL Lymphocytes # 0.4 L (1.0-4.8) k/uL APTT (22.0-30.0) sec BUN 21 H (9-20) mg/dL Glucose 190 H (74-99) mg/dL POC Glucose (mg/dL) 119 H (75-99) mg/dL 07/10/17 Range/Units 06:37 MCHC (31.0-37.0) g/dL Neutrophils # (1.3-7.7) k/uL Lymphocytes # (1.0-4.8) k/uL APTT (22.0-30.0) sec BUN (9-20) mg/dL Glucose (74-99) mg/dL POC Glucose (mg/dL) 202 H (75-99) mg/dL Assessment and Plan Assessment: ASSESSMENT 1. defibrillator discharge, secondary to atrial fibrillation with rapid ventricular response. Interrogation reveals no evidence of ventricular arrhythmia. 2. Elevated troponin, secondary to defibrillator discharge. 3. History of COPD 4. History of coronary artery disease 5. Atrial fibrillation with rapid ventricular response, resolved PLAN Continue with metoprolol 50 mg twice a day as well as amiodarone 200 mg twice a day. Amiodarone will be titrated as an outpatient as needed. He is stable for discharge home on Eliquis 5 mg twice a day. This is covered and a reasonable cost to him. Follow up with Dr. Sánchez in 1-2 weeks. Nurse Practitioner note has been reviewed, I agree with a documented findings and plan of care. Patient was seen and examined.
[2017-07-10 11:36] LABS: Glucose,Whole Blood 202 mg/dL (75-99)
[2017-07-10 11:39] VITALS: BP 124/78; RESP 16
[2017-07-10 12:41] VITALS: PULSE 68
--- NOTE | 2017-07-10 22:18 | DS ---
DISCHARGE SUMMARY FINAL DIAGNOSES: 1. Status post AICD firing. Possible atrial fibrillation. No evidence of ventricular arrhythmia. 2. Chronic obstructive pulmonary disease acute exacerbation with acute purulent tracheobronchitis with bronchopneumonia, improved. 3. Paroxysmal atrial fibrillation with rapid ventricular rate. Concurrent with normal sensitivity. 4. Elevated lactic acid multifocal, improved. 5. Elevated troponin 0.0.359 indeterminate. 6. Congestive heart failure with chronic systolic dysfunction with cardiomyopathy and hyponatremia. DISCHARGE DISPOSITION: Patient being discharged in stable condition with guarded prognosis. Total time taken 35 minutes. HISTORY OF PRESENT ILLNESS: This 76-year-old gentleman with a past medical history of multiple medical problems was admitted with AICD firing, atrial fibrillation was suspected. Patient had medication adjusted. Cardiology saw the patient. Patient also had COPD which was treated with antibiotics and patient improved significantly. PHYSICAL EXAMINATION: On exam, vitals are stable. Cardiovascular: S1 and S2 muffled. Respirations: A few scattered rhonchi. Abdomen soft. Central nervous system: No focal deficits. The patient is being discharged in stable guarded with guarded prognosis. Total Time taken: 35 minutes. DISCHARGE ADVICE AND MEDICATIONS: 1. Discharge diet is cardiac diet. 2. Activity limited until followup. 3. Follow up with Dr. Martínez in 2-3 days. 4. Follow up with the cardiology and pulmonology as recommended. 5. Medications will be as follows:. 6. Ventolin 2.5 q.i.d. and p.r.n. 7. Zyloprim 400 mg p.o. daily. 8. Cordarone 200 mg p.o. b.i.d. further taper per Cardiology. 9. Augmentin 875 mg p.o. b.i.d. for 4 more days. 10.Eliquis 5 mg p.o. b.i.d. 11.Ecotrin 81 mg p.o. daily. 12.Lipitor 40 mg p.o. daily. 13.Symbicort 160/4.5 1 puff b.i.d.. 14.Albuterol Atrovent updraft q.i.d. and p.r.n. 15.Imdur 15 mg p.o. daily. 16.Prinivil 5 mg q.h.s. 17.Glucophage 1000 mg p.o. b.i.d. 18.Medrol Dosepak as directed. 19.Lopressor 50 mg p.o. b.i.d. 20.Nitrostat 0.4 mg sublingual p.r.n. 21.Prednisone taper as before. 22.Aldactone 25 mg daily. 23.Flomax 0.4 daily. Please send a copy this to Dr. Martínez and Cardiology office. Once the patient is being discharged in stable condition with guarded prognosis. MMODL / IJN: [id number] /
[2017-07-11] MEDS ORDERED: ASPIRIN 81 MG PO SCH (09:00)
== END 2017-07-10 15:48 | disposition home health service (06) | DRG 308 ==
LOC: EC 12:38 → 6SEL 14:41
PROVIDERS: ADMIT Hospitalist; ATTEND Hospitalist
DX: I48.0 Paroxysmal atrial fibrillation (principal); J18.0 Bronchopneumonia, unspecified organism; I27.20 Pulmonary hypertension, unspecified; E87.1 Hypo-osmolality and hyponatremia; I50.22 Chronic systolic (congestive) heart failure; E11.9 Type 2 diabetes mellitus without complications; J44.0 Chronic obstructive pulmonary disease with (acute) lower respiratory infection; J44.1 Chronic obstructive pulmonary disease with (acute) exacerbation; J20.9 Acute bronchitis, unspecified; I25.5 Ischemic cardiomyopathy; I25.10 Atherosclerotic heart disease of native coronary artery without angina pectoris; I25.2 Old myocardial infarction; Z79.82 Long term (current) use of aspirin; Z79.02 Long term (current) use of antithrombotics/antiplatelets; Z79.51 Long term (current) use of inhaled steroids; Z79.84 Long term (current) use of oral hypoglycemic drugs; Z79.899 Other long term (current) drug therapy; Z87.891 Personal history of nicotine dependence; Z95.5 Presence of coronary angioplasty implant and graft; Z95.810 Presence of automatic (implantable) cardiac defibrillator; Z85.46 Personal history of malignant neoplasm of prostate; Z90.49 Acquired absence of other specified parts of digestive tract; Z96.641 Presence of right artificial hip joint; Z88.6 Allergy status to analgesic agent; Z88.1 Allergy status to other antibiotic agents; Z82.49 Family history of ischemic heart disease and other diseases of the circulatory system; H91.90 Unspecified hearing loss, unspecified ear
CPT/HCPCS: 36415; 71045; 80048; 80053; 80061; 81003; 82550; 82553; 83036; 83605; 83735; 83880; 84484; 85025; 85610; 85730; 87086; 93005; 93306; 94640; 94760; 96374; 99285

== ENCOUNTER 2018-03-01 01:03 | Inpatient (IN) | payer MEDICARE ==
--- NOTE | 2018-03-01 04:12 | ED ---
SOB HPI - General Chief Complaint: Shortness of Breath Stated Complaint: SOB Time Seen by Provider: 03/01/18 01:11 Source: patient, RN/MD, EMS Mode of arrival: EMS Limitations: no limitations - History of Present Illness MD Complaint: shortness of breath -: hour(s) Consistency: constant Improves With: nothing Worsens With: lying flat Known History Of: COPD, congestive heart failure Associated Symptoms: denies other symptoms Treatments Prior to Arrival: oxygen - Related Data Home Medications Medication Instructions Recorded Confirmed Allopurinol [Zyloprim] 100 mg PO DAILY 05/09/15 07/07/17 Allopurinol [Zyloprim] 300 mg PO DAILY 05/09/15 07/07/17 Atorvastatin [Lipitor] 40 mg PO DAILY 05/09/15 07/07/17 Tamsulosin HCl [Flomax] 0.4 mg PO DAILY 05/13/15 07/07/17 Aspirin 81 mg PO DAILY 07/02/17 07/07/17 Lisinopril [Prinivil] 5 mg PO HS 07/02/17 07/07/17 predniSONE See Taper PO DAILY 07/07/17 07/07/17 Previous Rx's Medication Instructions Recorded Nitroglycerin Sl Tabs [Nitrostat] 0.4 mg SUBLINGUAL Q5M PRN #25 tab 05/10/16 Spironolactone [Aldactone] 25 mg PO DAILY #30 tab 05/10/16 metFORMIN HCL [Glucophage] 1,000 mg PO BID #0 05/10/16 Fluticasone/Salmeterol [Advair 1 inhalation PO BID #1 inhaler 07/03/17 250-50 Diskus] Isosorbide Mononitrate ER [Imdur] 15 mg PO DAILY #30 dose 07/03/17 Amiodarone [Cordarone] 200 mg PO BID #60 tab 07/10/17 Amoxicillin/Potassium Clav 1 tab PO Q12HR #8 tab 07/10/17 [Augmentin 875-125 Tablet] Apixaban [Eliquis] 5 mg PO BID #60 tab 07/10/17 Ipratropium-Albuterol Nebulize 3 ml INHALATION RT-Q2H PRN 07/10/17 [Duoneb 0.5 mg-3 mg/3 ml Soln] ampul.neb Ipratropium-Albuterol Nebulize 3 ml INHALATION RT-QID ampul.neb 07/10/17 [Duoneb 0.5 mg-3 mg/3 ml Soln] Metoprolol Tartrate [Lopressor] 50 mg PO BID #60 tab 07/10/17 methylPREDNISolone Dose Pack 4 mg PO DIRECTED #21 package 07/10/17 [Medrol Dose Pack] Allergies Allergy/AdvReac Type Severity Reaction Status Date / Time Tetracyclines Allergy Rash/Hives Verified 03/01/18 01:12 aspirin AdvReac was told Verified 03/01/18 01:12 not to take r/t nasal polyps Review of Systems ROS Statement: Those systems with pertinent positive or pertinent negative responses have been documented in the HPI. ROS Other: All systems not noted in ROS Statement are negative. Constitutional: Denies: fever, chills Respiratory: Reports: as per HPI, cough, dyspnea Cardiovascular: Reports: orthopnea, edema. Denies: chest pain, palpitations, syncope Gastrointestinal: Denies: abdominal pain, nausea, vomiting Genitourinary: Denies: dysuria, hematuria Musculoskeletal: Denies: back pain Skin: Denies: rash Neurological: Denies: headache, weakness, numbness Past Medical History Past Medical History: Asthma, Coronary Artery Disease (CAD), Cancer, Diabetes Mellitus, Hearing Disorder / Deafness, Myocardial Infarction ([place]), Prostate Disorder, Respiratory Disorder Additional Past Medical History / Comment(s): Prostate cancer (2009) with radiation Last Myocardial Infarction Date:: 2015 History of Any Multi-Drug Resistant Organisms: None Reported Past Surgical History: AICD, Appendectomy, Cholecystectomy, Heart Catheterization With Stent, Joint Replacement, Pacemaker, Tonsillectomy Additional Past Surgical History / Comment(s): nasal surgery for nasal polyps, right hip replacement Past Anesthesia/Blood Transfusion Reactions: No Reported Reaction Date of Last Stent Placement:: 2015 Type of Cardiac Device: Permanent Pacemaker, AICD Device Placement Date:: 2014 Past Psychological History: No Psychological Hx Reported Smoking Status: Former smoker Past Alcohol Use History: Daily Past Drug Use History: None Reported - Past Family History Mother Family Medical History: No Reported History Father Family Medical History: Myocardial Infarction ([place]) Additional Family Medical History / Comment(s): emphysema General Exam Limitations: no limitations General appearance: alert, in no apparent distress Head exam: Present: atraumatic, normocephalic Eye exam: Present: normal appearance. Absent: scleral icterus, conjunctival injection Respiratory exam: Present: rales. Absent: respiratory distress, wheezes, rhonchi, stridor Cardiovascular Exam: Present: regular rate, normal rhythm, normal heart sounds. Absent: systolic murmur, diastolic murmur, rubs, gallop GI/Abdominal exam: Present: soft. Absent: distended, tenderness, guarding, rebound Extremities exam: Present: normal inspection, normal capillary refill. Absent: pedal edema, calf tenderness Back exam: Present: normal inspection. Absent: CVA tenderness (R), CVA tenderness (L) Neurological exam: Present: alert Skin exam: Present: warm, dry, intact, normal color. Absent: rash Course Vital Signs 03/01/18 03/01/18 01:05 01:17 Temperature 96.9 F L Pulse Rate 79 Respiratory 18 20 Rate Blood Pressure 141/104 O2 Sat by Pulse 97 Oximetry Medical Decision Making - Lab Data Lab Results 03/01/18 Range/Units 02:16 Troponin I 0.136 H* (0.000-0.034) ng/mL Disposition Clinical Impression: CHF exacerbation, Elevated troponin I level Disposition: ADMITTED IP TO THIS HOSP Condition: Fair Referrals: Mohit Martínez DO [Primary Care Provider] - 1-2 days
[2018-03-01] MEDS: FUROSEMIDE 10 MG/ML 4 ML VIAL IV SCH ×2 (04:47→15:59)
[2018-03-01 05:20] VITALS: BMI 26.6
[2018-03-01 06:06] LABS: Glucose,Whole Blood 148 mg/dL (75-99)
[2018-03-01] MEDS: INSULIN ASPART 100 UNIT/ML 1 ML 10 ML VIAL SQ SCH ×4 (06:52→20:42)
--- NOTE | 2018-03-01 09:42 | CONS ---
CONSULTATION CHIEF COMPLAINT: Shortness of breath. Jas is 77-year-old gentleman with history of coronary artery disease, status post multivessel angioplasty, chronic atrial fibrillation, congestive heart failure, cardiomyopathy, status post AICD, who presented to the hospital having had episodes of shortness of breath and paroxysmal nocturnal dyspnea. He denies chest pain, palpitations, dizziness, syncope or focal neurological deficits. His symptoms got progressively worse starting over the weekend. As they became mild to moderate intensity, he came to the hospital and got admitted with a diagnosis of congestive heart failure. He has extensive cardiac history including coronary artery disease, status post prior angioplasty, permanent pacemaker placement, status post AICD, diabetes. PAST SURGICAL HISTORY: Significant for cholecystectomy, tonsillectomy, and joint replacement. ALLERGIES: Patient is allergic to ASPIRIN. CURRENT MEDICATIONS: Current medications include Lipitor, Zyloprim, aspirin, Flomax, Prinivil, prednisone, Aldactone, metformin, Advair, Imdur, amiodarone 200 b.i.d., Augmentin, Eliquis 5 b.i.d., DuoNeb, metoprolol and Medrol Dosepak. FAMILY HISTORY: Family history is negative for premature coronary artery disease. SOCIAL HISTORY: Negative for current smoking, EtOH abuse or drug abuse. REVIEW OF SYSTEMS: HEENT is significant for deafness. CARDIAC: As described above. RESPIRATORY: As described above. GI: Negative. GENITOURINARY: Negative. ALLERGY/IMMUNOLOGY: Negative. SKIN: Negative. MUSCULOSKELETAL: Significant for arthritis. PSYCHOSOCIAL: Negative. ENDOCRINE: Negative. HEMATOLOGICAL: Negative. DERM: Negative. CONSTITUTIONAL: Negative. ONCOLOGICAL: Negative. PHYSICAL EXAMINATION: On exam, he appears comfortable at rest. Heart rate is 60 beats per minute. Blood pressure is 109/72, respiratory rate is18, O2 sat is 95% on room air. Afebrile. There is no jugular venous distention. Chest exam reveals diminished air entry with occasional crackles bilaterally. Heart exam reveals first and second heart sounds. Systolic murmur at the apex. Abdomen is soft. Examination of extremities reveals bilateral 1+ pitting edema. LABS: Labs show that troponin is elevated at 0.136. BNP is pending at this time. We are awaiting repeat troponin. The patient initially presented to an outside hospital, I am going to review the information from there. ASSESSMENT: 1. Acute exacerbation of chronic systolic heart failure. 2. Coronary artery disease, status post prior angioplasty. 3. History of ventricular tachycardia. 4. Non ST-segment elevation myocardial infarction. 5. Paroxysmal atrial fibrillation. PLAN: I am going to treat the patient with intravenous Lasix and beta blockers, aspirin, Lipitor. Obtain a 2-D echo to evaluate the LV function. Once the patient's heart failure is better treated, I will consider cardiac catheterization on him. His last cardiac catheterization in April revealed a 60% stenosis involving LAD and critical stenosis involving left circumflex that was stented. MMODL / IJN: [id number] /
[2018-03-01] MEDS ORDERED: NITROGLYCERIN SL TABS 0.4 MG TAB SUBLINGUAL PRN (11:06)
[2018-03-01 11:24] LABS: HCT 38.3 % (39.0-53.0); HGB 12.4 gm/dL (13.0-17.5); MCH 29.5 pg (25.0-35.0); MCHC 32.4 g/dL (31.0-37.0); MCV 91.1 fL (80.0-100.0); Mean Platelet Volume 7.4; Platelet Count 204 k/uL (150-450); RDW 14.7 % (11.5-15.5); WBC 6.6 k/uL (3.8-10.6)
[2018-03-01] MEDS: ASPIRIN 81 MG PO SCH (11:28)
[2018-03-01] MEDS: ISOSORBIDE MONONITRATE ER 30 MG TAB.ER.24H PO SCH (11:28)
[2018-03-01] MEDS: APIXABAN 5 MG TAB PO SCH ×2 (11:28→19:49)
[2018-03-01] MEDS: METOPROLOL SUCCINATE (ER) 25 MG TAB.ER.24H PO SCH (11:29)
[2018-03-01] MEDS: ATORVASTATIN 40 MG TAB PO SCH (11:29)
[2018-03-01 11:36] LABS: Anion Gap 8 mmol/L; Blood Urea Nitrogen 20 mg/dL (9-20); Carbon Dioxide 30 mmol/L (22-30); Chloride 102 mmol/L (98-107); Glucose 138 mg/dL (74-99); Potassium 3.8 mmol/L (3.5-5.1); Sodium 140 mmol/L (137-145)
[2018-03-01 11:37] LABS: Calcium 9.3 mg/dL (8.4-10.2)
--- NOTE | 2018-03-01 11:44 | XR ---
EXAMINATION TYPE: XR chest 1V DATE OF EXAM: 03/01/2018 COMPARISON: 07/09/2017 and 02/28/2018 HISTORY: 77-year-old male CHF TECHNIQUE: Single frontal view of the chest is obtained. FINDINGS: Left anterior chest wall AICD generator with right ventricular lead. Heart is mildly enlarged. Diffus e interstitial prominence as a chronic appearance. Left base is underpenetrated and not well assessed . No girish consolidation or pleural effusion seen. IMPRESSION: Mild cardiomegaly. Interstitial changes appear largely chronic. No pulmonary edema. Left base underpe netrated and not well assessed.
[2018-03-01 12:06] LABS: Glucose,Whole Blood 129 mg/dL (75-99)
--- NOTE | 2018-03-01 13:37 | P.HPIM ---
History of Present Illness 72-year-old gentleman with history of coronary artery disease multivessel coronary angioplasty congestive heart failure severe cardiomyopathy ejection fraction of 25% and AICD came in with complaints of some shortness of breath, orthopnea proximal nocturnal dyspnea going on for about 2-3 days. He denied any chest pain. Patient was started on IV Lasix with significant improvement in symptoms patient is feeling much better regarding his shortness of breath compared to yesterday. Patient does have history of atrial fibrillation is on anticoagulation for that as well. Patient denied any fever chills patient was comparing of cough with the clear to whitish sputum production. Chest x-ray did show some interstitial abnormalities consistent with heart failure highly elevated BNP with an elevated JVD., No pedal edema Review of Systems REVIEW OF SYSTEMS: CONSTITUTIONAL: No fever, no malaise, no fatigue. HEENT: No recent visual problems or hearing problems. Denied any sore throat. CARDIOVASCULAR: No chest pain, no palpitations, no syncope. PULMONARY: no hemoptysis. GASTROINTESTINAL: No diarrhea, no nausea, no vomiting, no abdominal pain. Normoactive bowel sounds. NEUROLOGICAL: No headaches, no weakness, no numbness. HEMATOLOGICAL: Denies any bleeding or petechiae. GENITOURINARY: Denies any burning micturition, frequency, or urgency. MUSCULOSKELETAL/RHEUMATOLOGICAL: Denies any joint pain, swelling, or any muscle pain. ENDOCRINE: Denies any polyuria or polydipsia. The rest of the 14-point review of systems is negative. Past Medical History Past Medical History: Asthma, Coronary Artery Disease (CAD), Cancer, Diabetes Mellitus, Hearing Disorder / Deafness, Myocardial Infarction (MD), Prostate Disorder, Respiratory Disorder Additional Past Medical History / Comment(s): Prostate cancer (2009) with radiation Last Myocardial Infarction Date:: 2015 History of Any Multi-Drug Resistant Organisms: None Reported Past Surgical History: AICD, Appendectomy, Cholecystectomy, Heart Catheterization With Stent, Joint Replacement, Pacemaker, Tonsillectomy Additional Past Surgical History / Comment(s): nasal surgery for nasal polyps, right hip replacement Past Anesthesia/Blood Transfusion Reactions: No Reported Reaction Date of Last Stent Placement:: 2015 Type of Cardiac Device: Permanent Pacemaker, AICD Device Placement Date:: 2014 Past Psychological History: No Psychological Hx Reported Additional Psychological History / Comment(s): pt lives alone in 2 story home. has 13 steps to 2nd floor. and 4 porch steps. no home care services, has cane/ walker,nebulizer. Smoking Status: Former smoker Past Alcohol Use History: Daily Additional Past Alcohol Use History / Comment(s): pt states he quit smoking when he was 23 years old Past Drug Use History: None Reported - Past Family History Mother Family Medical History: No Reported History Father Family Medical History: Myocardial Infarction (MD) Additional Family Medical History / Comment(s): emphysema Medications and Allergies Home Medications Medication Instructions Recorded Confirmed Type Allopurinol [Zyloprim] 300 mg PO DAILY 05/09/15 03/01/18 History Atorvastatin [Lipitor] 40 mg PO DAILY 05/09/15 03/01/18 History Tamsulosin HCl [Flomax] 0.4 mg PO DAILY 05/13/15 03/01/18 History Nitroglycerin Sl Tabs [Nitrostat] 0.4 mg SUBLINGUAL Q5M PRN #25 tab 05/10/1608/14 Rx Spironolactone [Aldactone] 25 mg PO DAILY #30 tab 05/10/16 03/01/18 Rx metFORMIN HCL [Glucophage] 1,000 mg PO BID #0 05/10/16 03/01/18 Rx Aspirin 81 mg PO DAILY 07/02/17 03/01/18 History Apixaban [Eliquis] 5 mg PO BID #60 tab 07/10/17 03/01/18 Rx Albuterol Nebulized [Ventolin 2.5 mg INHALATION RT-Q6H PRN 03/01/18 03/01/18 History Nebulized] methylPREDNISolone [Medrol] 4 mg PO DAILY 03/01/18 03/01/18 History Allergies Allergy/AdvReac Type Severity Reaction Status Date / Time grapefruit Allergy Unknown Verified 03/01/18 09:28 Tetracyclines Allergy Rash/Hives Verified 03/01/18 09:28 aspirin AdvReac was told Verified 03/01/18 09:28 not to take r/t nasal polyps Physical Exam Vitals: Vital Signs Temp Pulse Pulse Resp BP BP Pulse Ox 03/01/18 12:00 97.6 F 57 L 16 120/89 94 L 03/01/18 08:32 97.6 F 36 L 16 109/79 95 03/01/18 05:44 65 18 03/01/18 04:51 97 18 159/97 99 03/01/18 04:26 97.5 F L 65 18 175/106 97 03/01/18 04:25 96.8 F L 100 18 163/108 98 03/01/18 04:07 98 03/01/18 04:04 70 18 95/70 91 L 03/01/18 01:17 20 03/01/18 01:05 96.9 F L 79 18 141/104 97 Intake and Output 02/28/18 03/01/18 03/01/18 22:59 06:59 14:59 Intake Total 0 Output Total 1924 Balance -1924 Intake: Oral 0 Output: Urine 1924 Other: Voiding Method Urinal Urinal # Voids 1 Weight 72.8 kg 72.8 kg PHYSICAL EXAMINATION: GENERAL: The patient is alert and oriented x3, not in any acute distress. Well developed, well nourished. HEENT: Pupils are round and equally reacting to light. EOMI. No scleral icterus. No conjunctival pallor. Normocephalic, atraumatic. No pharyngeal erythema. No thyromegaly. CARDIOVASCULAR: S1 and S2 present. No murmurs, rubs, or gallops. Remain elevated JVD PULMONARY: Chest is clear to auscultation, no wheezing or crackles. ABDOMEN: Soft, nontender, nondistended, normoactive bowel sounds. No palpable organomegaly. MUSCULOSKELETAL: No joint swelling or deformity. EXTREMITIES: No cyanosis, clubbing, or pedal edema. NEUROLOGICAL: Gross neurological examination did not reveal any focal deficits. SKIN: No rashes. Results CBC & Chem 7: 03/01/18 08:25 03/01/18 08:25 Labs: Abnormal Lab Results - Last 24 Hours (Table) 03/01/18 03/01/18 03/01/18 Range/Units 02:16 06:05 08:25 RBC (4.30-5.90) m/uL Hgb (13.0-17.5) gm/dL Hct (39.0-53.0) % Creatinine (0.66-1.25) mg/dL Glucose (74-99) mg/dL POC Glucose (mg/dL) 148 H (75-99) mg/dL Troponin I 0.136 H* 0.131 H* (0.000-0.034) ng/mL 03/01/18 03/01/18 03/01/18 Range/Units 08:25 08:25 11:48 RBC 4.20 L (4.30-5.90) m/uL Hgb 12.4 L (13.0-17.5) gm/dL Hct 38.3 L (39.0-53.0) % Creatinine 0.62 L (0.66-1.25) mg/dL Glucose 138 H (74-99) mg/dL POC Glucose (mg/dL) 129 H (75-99) mg/dL Troponin I (0.000-0.034) ng/mL Thrombosis Risk Factor Assmnt - Choose All That Apply Any of the Below Risk Factors Present?: Yes Each Factor Represents 1 point: Abnormal pulmonary function (COPD) Other Risk Factors: Yes Each Risk Factor Represents 2 Points: Age 61-74 years Other congenital or acquired thrombophilia - If yes, enter type in comment: No Thrombosis Risk Factor Assessment Total Risk Factor Score: 3 Thrombosis Risk Factor Assessment Level: Moderate Risk Assessment and Plan Plan: Congestive heart failure, chronic systolic dysfunction ischemic cardiomyopathy ejection fraction of 20% with acute exacerbation patient was started on IV Lasix which will be continued today. -Mildly elevated troponin secondary to heart failure cardiology evaluated the patient further management as per cardiology -Asthma without any acute exacerbation patient was a smoker in the past as well. -Coronary artery disease -Type 2 diabetes mellitus -Benign prostatic hypertrophy -Hypertension -Atrial fibrillation presently rate controlled on anticoagulation which will continue
[2018-03-01 15:57] LABS: Creatine Kinase MB 4.1 ng/mL (0.0-2.4)
[2018-03-01 16:35] LABS: Troponin I 0.124 ng/mL (0.000-0.034)
--- NOTE | 2018-03-01 16:44 | ECHOF ---
Referral Reason:chf MEASUREMENTS -------- HEIGHT: 1689.1 cm WEIGHT: 72.6 kg BP: RVIDd: 2.8 cm (< 3.3) IVSd: 1.3 cm (0.6 - 1.1) LVIDd: 6.7 cm (3.9 - 5.3) LVPWd: 1.0 cm (0.6 - 1.1) IVSs: 1.4 cm LVIDs: 6.4 cm LVPWs: 1.1 cm Ao Diam: 3.0 cm (2.0 - 3.7) AV Cusp: 1.4 cm (1.5 - 2.6) LA Diam: 4.2 cm (2.7 - 3.8) MV EXCURSION: 12.148 mm (> 18.000) MV EF SLOPE: 38 mm/s (70 - 150) EPSS: 2.4 cm AV maxP.18 mmHg AV meanP.84 mmHg AR PHT: 202 ms RAP: 5.00 mmHg RVSP: 30.73 mmHg FINDINGS -------- Sinus rhythm. Pacerwire seen in RV and RA. This was a technically difficult study with suboptimal views. The left ventricle is severely dilated. There is mild concentric left ventricular hypertrophy. Th ere is severe global hypokinesis of LV . Overall left ventricular systolic function is severely imp aired with, an EF between 20 - 25 %. The right ventricle is normal in size. The left atrium is mildly dilated. The right atrium is normal in size. Lumason used There is mild aortic valve sclerosis. Trace amount of aortic regurgitation. There is mild aortic stenosis present. Peak/mean gradient across the Aortic Valve is 20.18mmHg / 10.84mmHg. The mitral valve leaflets are mildly thickened. Mild mitral regurgitation is present. Mild tricuspid regurgitation present. There is no evidence of pulmonary hypertension. The right v entricular systolic pressure, as measured by Doppler, is 30.73mmHg. There is no pulmonic regurgitation present. The aortic root, ascending aorta and aortic arch are normal. There is no pericardial effusion. CONCLUSIONS -------- 1. Sinus rhythm. 2. Pacerwire seen in RV and RA. 3. This was a technically difficult study with suboptimal views. 4. The left ventricle is severely dilated. 5. There is mild concentric left ventricular hypertrophy. 6. There is severe global hypokinesis of LV . 7. Overall left ventricular systolic function is severely impaired with, an EF between 20 - 25 %. 8. The left atrium is mildly dilated. 9. Lumason used 10. There is mild aortic valve sclerosis. 11. Trace amount of aortic regurgitation. 12. There is mild aortic stenosis present. 13. Peak/mean gradient across the Aortic Valve is 20.18mmHg / 10.84mmHg. 14. The mitral valve leaflets are mildly thickened. 15. Mild mitral regurgitation is present. 16. Mild tricuspid regurgitation present. 17. There is no evidence of pulmonary hypertension. 18. There is no pulmonic regurgitation present. 19. The aortic root, ascending aorta and aortic arch are normal. 20. There is no pericardial effusion. DIRECTOR OF MARKETING OPERATIONS: Kylee Kasper RDCS
[2018-03-01 17:02] LABS: Glucose,Whole Blood 140 mg/dL (75-99)
[2018-03-01] MEDS: IPRATROPIUM-ALBUTEROL 3 ML NEB INHALATION PRN (19:04)
[2018-03-01 19:14] LABS: Hemoglobin A1C 6.9 % (4.0-6.0)
[2018-03-01 20:34] LABS: Glucose,Whole Blood 171 mg/dL (75-99)
[2018-03-01] MEDS ORDERED: TAMSULOSIN 0.4 MG CAP.ER.24H PO SCH (21:00)
[2018-03-02 00:12] VITALS: RESP 16
[2018-03-02] MEDS: FUROSEMIDE 10 MG/ML 4 ML VIAL IV SCH (04:35)
[2018-03-02 06:02] LABS: Glucose,Whole Blood 144 mg/dL (75-99)
[2018-03-02] MEDS: INSULIN ASPART 100 UNIT/ML 1 ML 10 ML VIAL SQ SCH ×2 (06:32→12:26)
[2018-03-02 06:53] LABS: HCT 40.2 % (39.0-53.0); HGB 13.1 gm/dL (13.0-17.5); MCH 29.4 pg (25.0-35.0); MCHC 32.6 g/dL (31.0-37.0); MCV 90.2 fL (80.0-100.0); Platelet Count 213 k/uL (150-450); RBC 4.46 m/uL (4.30-5.90); RDW 14.7 % (11.5-15.5); WBC 7.5 k/uL (3.8-10.6)
[2018-03-02] MEDS: IPRATROPIUM-ALBUTEROL 3 ML NEB INHALATION PRN ×2 (07:12→11:15)
[2018-03-02 07:22] LABS: Anion Gap 9 mmol/L; Blood Urea Nitrogen 23 mg/dL (9-20); Calcium 9.3 mg/dL (8.4-10.2); Carbon Dioxide 27 mmol/L (22-30); Chloride 104 mmol/L (98-107); Glucose 144 mg/dL (74-99); Sodium 140 mmol/L (137-145)
[2018-03-02] MEDS: METOPROLOL SUCCINATE (ER) 25 MG TAB.ER.24H PO SCH (07:48)
[2018-03-02] MEDS: ASPIRIN 81 MG PO SCH (07:48)
[2018-03-02] MEDS: APIXABAN 5 MG TAB PO SCH (07:48)
[2018-03-02] MEDS: ISOSORBIDE MONONITRATE ER 30 MG TAB.ER.24H PO SCH (07:49)
[2018-03-02] MEDS: ATORVASTATIN 40 MG TAB PO SCH (07:50)
[2018-03-02] MEDS ORDERED: SPIRONOLACTONE 25 MG TAB PO SCH (09:00)
[2018-03-02] MEDS ORDERED: ALLOPURINOL 300 MG TAB PO SCH (09:00)
[2018-03-02] MEDS ORDERED: ASPIRIN 81 MG PO SCH (09:00)
[2018-03-02 11:22] VITALS: TEMP 98.8
[2018-03-02 11:27] VITALS: PULSE 65
[2018-03-02 11:36] LABS: Glucose,Whole Blood 156 mg/dL (75-99)
[2018-03-02] MEDS ORDERED: LISINOPRIL 2.5 MG TAB PO STA (11:56)
--- NOTE | 2018-03-02 12:06 | P.PN ---
Subjective Progress Note Date: 03/02/18 This is a 77-year-old gentleman with known history of coronary artery disease and prior multivessel angioplasty, chronic A. fib, ischemic cardiomyopathy with prior AICD, hypertension, hyperlipidemia, who presented to the hospital with symptoms of shortness of breath, PND and orthopnea. He has been diuresing on IV Lasix and today feels considerably better. His edema is gone, and his lungs today sound fairly clear. Dr. Zabala did see the patient in consultation and advised that prior to discharge she undergo cardiac catheterization because of the chest discomfort and abnormality in troponins noted. Patient does not wish to undergo cardiac catheterization at this time, he wishes to be discharged home to follow-up with Dr. Jessica Sánchez as an outpatient discussing cardiac catheterization further at that time. Patient is hemodynamically stable, blood pressure 100/68, heart rate in the 60s, 93% on room air. White blood cell count is normal, hemoglobin 13.1, platelet count 213. Sodium 140, potassium 4.0, BUN 23, creatinine 0.7. Objective - Vital Signs Vital signs: Vital Signs Temp 98.8 F 03/02/18 11:21 Pulse 72 03/02/18 11:26 Resp 16 03/02/18 11:23 BP 100/69 03/02/18 11:21 Pulse Ox 93 L 03/02/18 11:21 Intake & Output 03/01/18 03/02/18 03/02/18 18:59 06:59 18:59 Intake Total 358 180 250 Output Total 600 750 Balance -242 -570 250 Weight 72.8 kg 68.1 kg Intake: IV 10 Invasive Line 1 10 Oral 358 180 240 Output: Urine 600 750 Other: Voiding Method Urinal Urinal Urinal # Voids 2 - Exam PHYSICAL EXAMINATION: GENERAL: 77-year-old gentleman in no acute distress at the time of my examination HEENT: Head is atraumatic, normocephalic. Pupils equal, round. Sclera anicteric. Conjunctiva are clear. Mucous membranes of the mouth are moist. Neck is supple. There is no elevated jugular venous pressure.No carotid bruit is heard. HEART EXAMINATION: Heart S1 and S2 systolic murmur is heard CHEST EXAMINATION: Lungs are clear to auscultation and precussion. No chest wall tenderness is noted on palpation or with deep breathing. ABDOMEN: Soft, nontender. Bowel sounds are heard. No organomegaly noted. EXTREMITIES: 2+ peripheral pulses with no evidence of peripheral edema and no calf tenderness noted. NEUROLOGIC patient is awake, alert and oriented X3. . - Labs CBC & Chem 7: 03/02/18 06:14 03/02/18 06:14 Labs: Abnormal Lab Results - Last 24 Hours (Table) 03/01/18 03/01/18 03/01/18 Range/Units 08:23 11:48 14:49 BUN (9-20) mg/dL Glucose (74-99) mg/dL POC Glucose (mg/dL) 129 H (75-99) mg/dL Hemoglobin A1c 6.9 H (4.0-6.0) % CK-MB (CK-2) 4.1 H (0.0-2.4) ng/mL Troponin I 0.124 H* (0.000-0.034) ng/mL 03/01/18 03/01/18 03/02/18 Range/Units 16:54 20:33 06:00 BUN (9-20) mg/dL Glucose (74-99) mg/dL POC Glucose (mg/dL) 140 H 171 H 144 H (75-99) mg/dL Hemoglobin A1c (4.0-6.0) % CK-MB (CK-2) (0.0-2.4) ng/mL Troponin I (0.000-0.034) ng/mL 03/02/18 03/02/18 Range/Units 06:14 11:31 BUN 23 H (9-20) mg/dL Glucose 144 H (74-99) mg/dL POC Glucose (mg/dL) 156 H (75-99) mg/dL Hemoglobin A1c (4.0-6.0) % CK-MB (CK-2) (0.0-2.4) ng/mL Troponin I (0.000-0.034) ng/mL Assessment and Plan Plan: Assessment and plan #1 systolic congestive heart failure acute on chronic #2 troponin abnormality suggesting possible acute coronary syndrome. #3 known history of coronary artery disease and prior bypass surgery #4 ischemic cardiomyopathy with prior AICD implant #5 asthma #6 hyperlipidemia #7 diabetes #8 hypertension Plan Patient was advised by Dr. Zabala to undergo cardiac catheterization during this admission, he has not been having any chest discomfort hemodynamically he is stable. Patient wishes to be discharged home today and follow-up with Dr. Jessica Sánchez in the office, if heart catheterization is recommended he will do it as an outpatient. DNP note has been reviewed, I agree with a documented findings and plan of care. Patient was seen and examined.
[2018-03-02 13:42] VITALS: BP 115/82
--- NOTE | 2018-03-03 04:52 | CDI ---
Last Revision, April 2017 Documentation Clarification Form Date: 03/03/2018 4:38:50 AM From: Mariia Alisson Phone: If you have a question about this query, please contact Nighat Thomson Forensic Engineer at [phone] between 8am and 5pm. Admit Date: 03/01/2018 4:06:00 AM Patient Name: Jas Solo Visit Number: [id number] Discharge Date: 03/01/18 ATTENTION: The Clinical Documentation Specialists (CDI) and [facility] Coding Staff appreciate your assistance in clarifying documentation. Please respond to the clarification below the line at the bottom and electronically sign. The CDI & [facility] Coding staff will review the response and follow-up if needed. Please note: Queries are made part of the Legal Health Record. If you have any questions, please contact the author of this message via ITS. Zach Chamorro MD Conflicting documentation of NSTEMI. Consult documents NSTEMI. 03/02 Progross note documentes troponin abnormality suggesting possible ACS. Please clarify. Did patient have NSTEMI or ACS. On 03/01 consult NSTEMI 03/02 PN ACS History/Risk Factors: CAD, old [place], AC/CH systolic CHF, HTN, ischemic cardiomyopathy, atrial fib Clinical Indicators: Troponins: .124, .131, .136 Treatment: OP cardiac cath, IV beta blockers and Lasix, aspirin, ECHI for LV function In your opinion what is the most clinically appropriate diagnosis for this patient? NSTEMI Acute Coronary Syndrome Other explanation of clinical findings Unable to determine (no explanation for clinical findings) MTDD
--- NOTE | 2018-03-06 09:30 | P.DS ---
Providers Date of admission: 03/01/18 04:06 Expected date of discharge: 03/02/18 Attending physician: Emilee Negron Consults: 03/01/18 04:06 Consult Physician Routine Consulting Provider: Johnathan Adrian Consult Reason/Comments: CHF exacerbation Do you want consulting provider notified?: Yes Primary care physician: [facility] Course: Final Diagnoses Congestive heart failure, chronic systolic dysfunction ischemic cardiomyopathy ejection fraction of 20% with acute exacerbation patient -Mildly elevated troponin secondary to heart failure cardiology evaluated the patient further management as per cardiology -Asthma without any acute exacerbation patient was a smoker in the past as well. -Coronary artery disease -Type 2 diabetes mellitus -Benign prostatic hypertrophy -Hypertension -Atrial fibrillation presently rate controlled on anticoagulation Hospital course:72-year-old gentleman with history of coronary artery disease multivessel coronary angioplasty congestive heart failure severe cardiomyopathy ejection fraction of 25% and AICD came in with complaints of some shortness of breath, orthopnea proximal nocturnal dyspnea going on for about 2-3 days. He denied any chest pain. Patient was started on IV Lasix with significant improvement in symptoms patient is feeling much better regarding his shortness of breath compared to yesterday. Patient does have history of atrial fibrillation is on anticoagulation for that as well. Patient denied any fever chills patient was comparing of cough with the clear to whitish sputum production. Chest x-ray did show some interstitial abnormalities consistent with heart failure highly elevated BNP with an elevated JVD., No pedal edema. Evaluated by cardiology, cardiac catheterization recommended. Patient declined cardiac catheterization at this time, no chest pain, hemodynamically stable. Patient requesting discharge home and will follow-up with Dr. LIZZ Sánchez in the office for potential outpatient cardiac catheterization. Diuresed well. Significant clinical improvement. Cleared by cardiology for discharge. Patient is being discharged home in a stable condition with guarded prognosis. EXAMINATION: GENERAL: The patient is alert and oriented x3, not in any acute distress. CARDIOVASCULAR: S1 and S2 present. Systolic murmurs, rubs, or gallops. No JVD PULMONARY: Chest is clear to auscultation, no wheezing or crackles. ABDOMEN: Soft, nontender, nondistended, normoactive bowel sounds. No palpable organomegaly. NEUROLOGICAL: Gross neurological examination did not reveal any focal deficits. The impression and plan of care has been dictated as directed. : I performed a history and examination of this patient, discussed the same with the dictator. I agree with the dictator's note ,documented as a scribe. Any additional findings or plans will be noted. Time taken: 35 minutes Patient Condition at Discharge: Stable Plan - Discharge Summary Discharge Rx Participant: No New Discharge Prescriptions: New Furosemide [Lasix] 40 mg PO BID #60 tablet Lisinopril [Zestril] 2.5 mg PO DAILY #30 tab No Action Atorvastatin [Lipitor] 40 mg PO DAILY Allopurinol [Zyloprim] 300 mg PO DAILY Tamsulosin HCl [Flomax] 0.4 mg PO DAILY Nitroglycerin Sl Tabs [Nitrostat] 0.4 mg SUBLINGUAL Q5M PRN #25 tab PRN Reason: Chest Pain Spironolactone [Aldactone] 25 mg PO DAILY #30 tab metFORMIN HCL [Glucophage] 1,000 mg PO BID #0 Aspirin 81 mg PO DAILY Apixaban [Eliquis] 5 mg PO BID #60 tab Albuterol Nebulized [Ventolin Nebulized] 2.5 mg INHALATION RT-Q6H PRN PRN Reason: Shortness Of Breath methylPREDNISolone [Medrol] 4 mg PO DAILY Discharge Medication List Allopurinol [Zyloprim] 300 mg PO DAILY 05/09/15 [History] Atorvastatin [Lipitor] 40 mg PO DAILY 05/09/15 [History] Tamsulosin HCl [Flomax] 0.4 mg PO DAILY 05/13/15 [History] Nitroglycerin Sl Tabs [Nitrostat] 0.4 mg SUBLINGUAL Q5M PRN #25 tab 05/10/16 [Rx ] Spironolactone [Aldactone] 25 mg PO DAILY #30 tab 05/10/16 [Rx] metFORMIN HCL [Glucophage] 1,000 mg PO BID #0 05/10/16 [Rx] Aspirin 81 mg PO DAILY 07/02/17 [History] Apixaban [Eliquis] 5 mg PO BID #60 tab 07/10/17 [Rx] Albuterol Nebulized [Ventolin Nebulized] 2.5 mg INHALATION RT-Q6H PRN 03/01/18 [ History] methylPREDNISolone [Medrol] 4 mg PO DAILY 03/01/18 [History] Furosemide [Lasix] 40 mg PO BID #60 tablet 03/02/18 [Rx] Lisinopril [Zestril] 2.5 mg PO DAILY #30 tab 03/02/18 [Rx] Follow up Appointment(s)/Referral(s): Pj Sánchez MD [STAFF PHYSICIAN] - 03/15/18 4:00 pm (Tuesday -previously scheduled appointment) [facility] [NON-STAFF] - Mohit Martínez DO [Primary Care Provider] - 03/09/18 1:20 pm ( with [facility] ) Patient Instructions/Handouts: Heart Failure (DC) Discharge Disposition: HOME WITH HOME HEALTH SERVICES
== END 2018-03-02 14:22 | disposition home health service (06) | DRG 293 ==
LOC: EC 01:03 → 6SEL 04:06
PROVIDERS: ADMIT Hospitalist; ATTEND Hospitalist
DX: I11.0 Hypertensive heart disease with heart failure (principal); I50.23 Acute on chronic systolic (congestive) heart failure; I25.10 Atherosclerotic heart disease of native coronary artery without angina pectoris; E11.9 Type 2 diabetes mellitus without complications; E78.5 Hyperlipidemia, unspecified; H91.90 Unspecified hearing loss, unspecified ear; I25.2 Old myocardial infarction; I25.5 Ischemic cardiomyopathy; I48.0 Paroxysmal atrial fibrillation; I48.2 Chronic atrial fibrillation; J44.9 Chronic obstructive pulmonary disease, unspecified; N40.0 Benign prostatic hyperplasia without lower urinary tract symptoms; Z79.01 Long term (current) use of anticoagulants; Z79.82 Long term (current) use of aspirin; Z79.84 Long term (current) use of oral hypoglycemic drugs; Z82.49 Family history of ischemic heart disease and other diseases of the circulatory system; Z82.5 Family history of asthma and other chronic lower respiratory diseases; Z85.46 Personal history of malignant neoplasm of prostate; Z86.79 Personal history of other diseases of the circulatory system; Z87.891 Personal history of nicotine dependence; Z95.810 Presence of automatic (implantable) cardiac defibrillator; Z96.641 Presence of right artificial hip joint; Z98.61 Coronary angioplasty status; Z92.3 Personal history of irradiation; Z79.899 Other long term (current) drug therapy; Z88.6 Allergy status to analgesic agent; Z88.1 Allergy status to other antibiotic agents; Z60.2 Problems related to living alone
CPT/HCPCS: 36415; 71045; 80048; 82550; 82553; 83036; 83880; 84484; 85027; 93306; 94640; 96374; 99285

== ENCOUNTER 2018-06-04 22:55 | Inpatient (IN) | payer MEDICARE ==
[2018-06-04] MEDS ORDERED: NITROGLYCERIN SL TABS 0.4 MG TAB SUBLINGUAL PRN (22:58)
[2018-06-04] MEDS ORDERED: HEPARIN SOD,PORK IN 0.45% NACL 25,000 UNIT in 0.45% NACL 1 250ML.BAG IV SCH (23:00)
[2018-06-04] MEDS ORDERED: IPRATROPIUM-ALBUTEROL 3 ML NEB INHALATION STA (23:12)
--- NOTE | 2018-06-04 23:21 | ED ---
SOB HPI - General Chief Complaint: Shortness of Breath Stated Complaint: CHF,abnormal labs Time Seen by Provider: 06/04/18 22:58 Source: patient Mode of arrival: EMS Limitations: no limitations - History of Present Illness Initial Comments: Patient is a 77-year-old male with extensive cardiac history as well as history of COPD presented to an outside facility for evaluation of shortness of breath. Patient reports he had some mild chest pain earlier in the day but has had a nonproductive cough and shortness of breath throughout the day today. He presented to outside facility with difficulty in breathing. Outside labs revealed a mildly elevated troponin is 0.05, elevated BNP consistent with CHF. Patient was treated for a COPD exacerbation with DuoNeb and was given Lasix for CHF. Patient was given weight-based dose of Lovenox for the elevated troponin transferred to our facility for further evaluation. Upon arrival at our facility patient continues to complain of shortness of breath but reports he has not had any chest pain since he was in his home earlier today. - Related Data Home Medications Medication Instructions Recorded Confirmed Allopurinol [Zyloprim] 300 mg PO DAILY 05/09/15 03/01/18 Atorvastatin [Lipitor] 40 mg PO DAILY 05/09/15 03/01/18 Tamsulosin HCl [Flomax] 0.4 mg PO DAILY 05/13/15 03/01/18 methylPREDNISolone [Medrol] 4 mg PO DAILY 03/01/18 03/01/18 Fluticasone/Salmeterol [Advair 1 puff INHALATION RT-BID 06/04/18 06/04/18 250-50 Diskus] Ipratropium Nebulized [Atrovent 0.5 mg INHALATION RT-QID PRN 06/04/18 06/04/18 Nebulized 0.2 MG/ML] Metoprolol Tartrate [Lopressor] 50 mg PO BID 06/04/18 06/04/18 Previous Rx's Medication Instructions Recorded Spironolactone [Aldactone] 25 mg PO DAILY #30 tab 05/10/16 metFORMIN HCL [Glucophage] 1,000 mg PO BID #0 05/10/16 Apixaban [Eliquis] 5 mg PO BID #60 tab 07/10/17 Furosemide [Lasix] 40 mg PO BID #60 tablet 03/02/18 Lisinopril [Zestril] 2.5 mg PO DAILY #30 tab 03/02/18 Allergies Allergy/AdvReac Type Severity Reaction Status Date / Time atorvastatin [From Lipitor] Allergy Unknown Verified 06/04/18 23:21 grapefruit Allergy Unknown Verified 06/04/18 23:21 naproxen Allergy Unknown Verified 06/04/18 23:21 Tetracyclines Allergy Rash/Hives Verified 06/04/18 23:21 aspirin AdvReac was told Verified 06/04/18 23:21 not to take r/t nasal polyps Review of Systems ROS Statement: Those systems with pertinent positive or pertinent negative responses have been documented in the HPI. ROS Other: All systems not noted in ROS Statement are negative. Past Medical History Past Medical History: Asthma, Coronary Artery Disease (CAD), Cancer, Heart Failure, Diabetes Mellitus, Hearing Disorder / Deafness, Myocardial Infarction ( [place]), Prostate Disorder, Respiratory Disorder Additional Past Medical History / Comment(s): Prostate cancer (2009) with radiation Last Myocardial Infarction Date:: 2015 History of Any Multi-Drug Resistant Organisms: None Reported Past Surgical History: AICD, Appendectomy, Cholecystectomy, Heart Catheterization With Stent, Joint Replacement, Pacemaker, Tonsillectomy Additional Past Surgical History / Comment(s): nasal surgery for nasal polyps, right hip replacement Past Anesthesia/Blood Transfusion Reactions: No Reported Reaction Date of Last Stent Placement:: 2015 Type of Cardiac Device: Permanent Pacemaker, AICD Device Placement Date:: 2014 Past Psychological History: No Psychological Hx Reported Smoking Status: Former smoker Past Alcohol Use History: Daily Past Drug Use History: None Reported - Past Family History Mother Family Medical History: No Reported History Father Family Medical History: Myocardial Infarction ([place]) Additional Family Medical History / Comment(s): emphysema General Exam - General Exam Comments Initial Comments: GENERAL: Patient is nontoxic and well-hydrated and is in mild distress. HENT: Normocephalic, Atraumatic. Neck is soft and supple. No significant lymphadenopathy is noted. Oropharynx is clear. Moist mucous membranes. Neck has full range of motion without eliciting any pain. EYES: The sclera were anicteric and conjunctiva were pink and moist. Extraocular movements were intact and pupils were equal round and reactive to light. Eyelids were unremarkable. PULMONARY: Tachypnea, wheezing all lung harley Crackles at the bilateral bases CARDIOVASCULAR: There is a regular rate and rhythm without any murmurs gallops or rubs. ABDOMEN: Soft and nontender with normal bowel sounds. SKIN: Dry Skin is clear with no lesions or rashes and otherwise unremarkable. NEUROLOGIC: Patient is alert and oriented x3. Cranial nerves II through XII are grossly intact. Motor and sensory are also intact. Normal speech, volume and content. Symmetrical smile. MUSCULOSKELETAL: Normal extremities with adequate strength and full range of motion. No lower extremity swelling or edema. No calf tenderness. LYMPHATICS: No significant lymphadenopathy is noted PSYCHIATRIC: Normal psychiatric evaluation. Limitations: no limitations Limitations: no limitations Course Vital Signs 06/04/18 06/04/18 06/04/18 23:02 23:35 23:46 Temperature 97.7 F Pulse Rate 51 L 111 H 111 H Respiratory 26 H 22 24 Rate Blood Pressure 148/79 O2 Sat by Pulse 93 L Oximetry Medical Decision Making - Medical Decision Making Patient was seen and evaluated history was obtained from the patient and review of outside medical record Upon arrival patient is in mild respiratory distress with wheezing in all lung harley. A DuoNeb was ordered and administered immediately. Repeat labs ordered patient care was discussed with pharmacist who recommends holding IV heparin for 12 hours because the patient received weight-based Lovenox outside facility Additional treatment for COPD including around the clock breathing treatments, IV steroids were ordered Admission orders were placed for COPD and CHF exacerbation with an NSTEMI, and a high suspicion for type II NSTEMI secondary to patient's coughing - Lab Data Result diagrams: 06/04/18 23:25 Critical Care Time Critical Care Time: Yes Total Critical Care Time: 30 Disposition Clinical Impression: Congestive heart failure, Acute exacerbation of chronic obstructive airways disease, Elevated troponin I level, CAD (coronary artery disease), Non-STEMI ( non-ST elevated myocardial infarction), COPD (chronic obstructive pulmonary disease), CHF exacerbation Disposition: ADMITTED IP TO THIS HOSP Condition: Serious
[2018-06-04 23:50] LABS: Basophils % (A) 0 %; Eosinophils # (A) 0.7 k/uL (0-0.7); Eosinophils % (A) 7 %; HCT 41.9 % (39.0-53.0); HGB 13.4 gm/dL (13.0-17.5); Lymphocytes # (A) 1.4 k/uL (1.0-4.8); Lymphocytes % (A) 14 %; MCH 28.8 pg (25.0-35.0); MCHC 31.9 g/dL (31.0-37.0); MCV 90.2 fL (80.0-100.0); Monocytes # (A) 0.6 k/uL (0-1.0); Monocytes % (A) 6 %; Neutrophils # (A) 7.4 k/uL (1.3-7.7); Neutrophils % (A) 71 %; Platelet Count 196 k/uL (150-450); RBC 4.65 m/uL (4.30-5.90); RDW 15.8 % (11.5-15.5); WBC 10.5 k/uL (3.8-10.6)
[2018-06-04 23:58] LABS: INR 1.2 (<1.2); Partial Thromboplastin Time 32.1 sec (22.0-30.0); Prothrombin Time 12.1 sec (9.0-12.0)
[2018-06-05 00:16] LABS: Creatine Kinase MB 3.1 ng/mL (0.0-2.4)
[2018-06-05] MEDS ORDERED: methylPREDNISolone SOD SUCCI 125 MG/2 ML VIAL IV STA (00:27)
[2018-06-05] MEDS ORDERED: IPRATROPIUM-ALBUTEROL 3 ML NEB INHALATION STA (00:27)
[2018-06-05 00:30] LABS: Troponin I 0.064 ng/mL (0.000-0.034)
[2018-06-05 00:36] LABS: ALT 40 U/L (21-72); AST 28 U/L (17-59); Albumin 4.3 g/dL (3.5-5.0); Alkaline Phosphatase 78 U/L (38-126); Anion Gap 14 mmol/L; Blood Urea Nitrogen 24 mg/dL (9-20); Calcium 9.4 mg/dL (8.4-10.2); Carbon Dioxide 26 mmol/L (22-30); Chloride 99 mmol/L (98-107); Glucose 164 mg/dL (74-99); Magnesium 1.2 mg/dL (1.6-2.3); Sodium 139 mmol/L (137-145); Total Protein 7.1 g/dL (6.3-8.2)
[2018-06-05] MEDS ORDERED: Magnesium Replacement Protocol 1 EACH MISC MISCELLANE PRN (02:00)
[2018-06-05] MEDS: MAGNESIUM SULFATE-D5W PMX 1 GM in DEXTROSE/WATER 1 100ML.BAG IVPB SCH ×3 (02:11→05:18)
[2018-06-05 06:18] LABS: Cholesterol 91 mg/dL (<200); HDL Cholesterol 41 mg/dL (40-60); LDL Cholesterol,Calculated 25 mg/dL (0-99); Triglycerides 123 mg/dL (<150)
[2018-06-05 06:45] LABS: Creatine Kinase MB 3.3 ng/mL (0.0-2.4)
[2018-06-05 06:59] LABS: Troponin I 0.074 ng/mL (0.000-0.034)
[2018-06-05] MEDS ORDERED: HEPARIN SOD,PORK IN 0.45% NACL 25,000 UNIT in 0.45% NACL 1 250ML.BAG IV SCH (07:00)
[2018-06-05] MEDS: IPRATROPIUM-ALBUTEROL 3 ML NEB INHALATION PRN ×4 (09:02→23:55)
[2018-06-05] MEDS: FUROSEMIDE 40 MG TAB PO SCH ×2 (11:22→17:07)
[2018-06-05] MEDS: predniSONE 20 MG TAB PO SCH (11:22)
[2018-06-05] MEDS: METOPROLOL TARTRATE 25 MG TAB PO SCH ×2 (11:23→21:08)
[2018-06-05] MEDS: LISINOPRIL 2.5 MG TAB PO SCH (11:23)
[2018-06-05 12:56] LABS: Creatine Kinase MB 3.7 ng/mL (0.0-2.4)
[2018-06-05 13:11] LABS: Troponin I 0.08 ng/mL (0.000-0.034)
--- NOTE | 2018-06-05 14:52 | CONS ---
CONSULTATION CHIEF COMPLAINT: Shortness of breath. HISTORY OF PRESENT ILLNESS: Jas is 77-year-old gentleman with history of coronary artery disease, status post prior multivessel angioplasty, paroxysmal atrial fibrillation, cardiomyopathy, congestive heart failure, severe COPD, status post AICD, who presents to hospital complaining of shortness of breath. He states that he had moderate intensity shortness of breath at rest, was coughing without any sputum production. He did not have any fever. Had mild leg swelling, but that was not his main symptom. There is no history of paroxysmal nocturnal dyspnea or orthopnea. His EKG shows sinus rhythm with frequent PVCs. His troponin came back mildly elevated due to which cardiology had been consulted. His troponins are usually mildly elevated. On multiple prior admissions, the troponins have always been high. Patient also complains of a blackish discoloration of his 2nd toe of his right foot and this has come on gradually. Patient has had bilateral foot pain. This may represent gangrene of the toe. His foot pulses are diminished. The patient has multiple and complex medical problems including acute exacerbation of chronic systolic heart failure and mild troponin elevation and possible gangrene. At the time of my evaluation, his shortness of breath has improved and he is feeling much better. He denies any chest pain. He is currently on IV heparin, which I am going to leave him on until tomorrow at which time we may resume the Eliquis that he was on. PAST MEDICAL HISTORY: Significant for coronary artery disease, status post angioplasty, paroxysmal atrial fibrillation, cardiomyopathy, systolic heart failure, AICD. PAST SURGICAL HISTORY: Significant for cholecystectomy, tonsillectomy. MEDICATIONS: Medications at home included Advair, Medrol, Glucophage, Flomax, Aldactone, Lopressor, Zestril, Atrovent, Lasix, Lipitor, Eliquis, and Zyloprim. ALLERGIES: HE HAS MULTIPLE DRUG ALLERGIES INCLUDING ASPIRIN, TETRACYCLINE, NAPROXEN, GRAPEFRUIT, LIPITOR. FAMILY HISTORY: Negative for premature coronary artery disease. SOCIAL HISTORY: He denies smoking, EtOH abuse or drug abuse. REVIEW OF SYSTEMS: HEENT is unremarkable. CARDIOVASCULAR: As described above. RESPIRATORY as described above. GI negative. negative. ALLERGY: As above. SKIN negative. MUSCULOSKELETAL: Significant for arthritis. PSYCHOSOCIAL: Negative. CONSTITUTIONAL: Negative. ONCOLOGICAL: Negative. CENTRAL NERVOUS SYSTEM: Negative. Rest of the system review is not relevant. PHYSICAL EXAMINATION: On exam, heart rate is 77. Blood pressure is 112/79, respiratory rate is 18, O2 sat is 98% on 2 L. NECK: There is no jugular venous distention. CHEST: Chest exam reveals occasional rhonchi with diminished air entry. CARDIOVASCULAR: Heart exam reveals first and second heart sounds and a systolic murmur at the apex. ABDOMEN: Abdomen is soft. EXTREMITIES: Exam of extremities reveals mild edema and gangrenous changes involving the right 2nd toe. Dorsal pedis pulses are severely diminished on both sides, more on the right than on the left. Posterior tibial pulses are also diminished. EKG shows sinus rhythm with frequent PVCs. LABS: Show that the hemoglobin is 13.4. Potassium is 4. Creatinine is 0.7. Tropes are mildly elevated at 0.6, 0.07, but at last visit back in February, it was 0.1, 0.1 and 0.3. I am not entirely sure how relevant the elevated tropes are. His LDL cholesterol is normal at 25. BNP is elevated at 3340. ASSESSMENT: 1. Acute exacerbation of chronic systolic heart failure. 2. Non ST-segment elevation myocardial infarction. 3. Chronic obstructive pulmonary disease. 4. Gangrene of the toe. 5. Coronary artery disease, status post multivessel angioplasty. PLAN: I will continue the heparin at this time. Obtain a 2D echo. Consult vascular surgeon. Continue the diuretics. Resume the ANATOLY inhibitors. Resume the beta jaspreet and the patient does not need invasive angiography at this time. We will resume Eliquis once the vascular surgery shows have resolved. Please resume nebulizers. MMODL / IJN: [id number] /
--- NOTE | 2018-06-05 16:54 | P.HPIM ---
History of Present Illness 72-year-old gentleman with known history of COPD came in with the complaints of shortness of breath cough with sputum production yellowish discoloration and wheezing on exam. Patient does have history of congestive heart failure status post AICD patient denied any significant orthopnea and proximal nocturnal dyspnea patient does have history of atrial fibrillation on long-term anti- correlation which is being continued. Patient is not in CHF exacerbation clinically doesn't appear to be in COPD exacerbation.. Patient incidentally complained of right third toe gangrene which is dry gangrene and the patient was discoloration of distal has been going on since a month. Vascular surgery was consulted patient does have fairly good anterior tibial pulses in the right side. Patient wheezing did improve does still have minimal wheeze for which patient is unfunded milligrams of prednisone which will be continued continue with inhalational treatments. Patient denied any fever chills patient chest x- ray did not show any pneumonic process. Patient's troponins are minimally elevated which is chronic elevation which are around 0.06 and stable at that range. was already evaluated by cardiology please refer to the documentation for cardiac issues. Review of Systems REVIEW OF SYSTEMS: CONSTITUTIONAL: No fever, no malaise, no fatigue. HEENT: No recent visual problems or hearing problems. Denied any sore throat. CARDIOVASCULAR: No chest pain, orthopnea, PND, no palpitations, no syncope. PULMONARY: no hemoptysis. GASTROINTESTINAL: No diarrhea, no nausea, no vomiting, no abdominal pain. NEUROLOGICAL: No headaches, no weakness, no numbness. HEMATOLOGICAL: Denies any bleeding or petechiae. GENITOURINARY: Denies any burning micturition, frequency, or urgency. MUSCULOSKELETAL/RHEUMATOLOGICAL: Denies any joint pain, swelling, or any muscle pain. ENDOCRINE: Denies any polyuria or polydipsia. The rest of the 14-point review of systems is negative. Past Medical History Past Medical History: Atrial Fibrillation, Asthma, Coronary Artery Disease (CAD) , Cancer, Heart Failure, COPD, Diabetes Mellitus, Hearing Disorder / Deafness, Myocardial Infarction ([place]), Pneumonia, Prostate Disorder, Rheumatoid Arthritis ( [place]) Additional Past Medical History / Comment(s): Prostate cancer (2009) with radiation, bronchitis, NIDDM type II, neuropathy bilateral hands and feet, R foot 2nd toe darkened, gout bilateral elbows, L wrist tendonitis, BPH, CAHUILLA bilaterally, vitiligo Last Myocardial Infarction Date:: 2015 History of Any Multi-Drug Resistant Organisms: None Reported Past Surgical History: AICD, Appendectomy, Cholecystectomy, Heart Catheterization With Stent, Joint Replacement, Pacemaker, Tonsillectomy Additional Past Surgical History / Comment(s): PCI with stents 2016, AICD/ pacermultiple nasal surgeryies for nasal polyps, right hip replacement Past Anesthesia/Blood Transfusion Reactions: No Reported Reaction Date of Last Stent Placement:: 2015 Type of Cardiac Device: Permanent Pacemaker, AICD Device Placement Date:: 2014 Smoking Status: Former smoker - Past Family History Mother Family Medical History: No Reported History Additional Family Medical History / Comment(s): Mother was healthy Father Family Medical History: Myocardial Infarction ([place]) Additional Family Medical History / Comment(s): Father from emphysema Medications and Allergies Home Medications Medication Instructions Recorded Confirmed Type Allopurinol [Zyloprim] 300 mg PO DAILY 05/09/15 06/04/18 History Atorvastatin [Lipitor] 40 mg PO DAILY 05/09/15 06/04/18 History Tamsulosin HCl [Flomax] 0.4 mg PO DAILY 05/13/15 06/04/18 History Spironolactone [Aldactone] 25 mg PO DAILY #30 tab 05/10/16 06/04/18 Rx metFORMIN HCL [Glucophage] 1,000 mg PO BID #0 05/10/16 06/04/18 Rx Apixaban [Eliquis] 5 mg PO BID #60 tab 07/10/17 06/04/18 Rx methylPREDNISolone [Medrol] 4 mg PO DAILY 03/01/18 06/04/18 History Furosemide [Lasix] 40 mg PO BID #60 tablet 03/02/18 06/04/18 Rx Lisinopril [Zestril] 2.5 mg PO DAILY #30 tab 03/02/18 06/04/18 Rx Fluticasone/Salmeterol [Advair 1 puff INHALATION RT-BID 06/04/18 06/04/18 History 250-50 Diskus] Ipratropium Nebulized [Atrovent 0.5 mg INHALATION RT-QID PRN 06/04/18 06/04/18 History Nebulized 0.2 MG/ML] Metoprolol Tartrate [Lopressor] 50 mg PO BID 06/04/18 06/04/18 History Allergies Allergy/AdvReac Type Severity Reaction Status Date / Time atorvastatin [From Lipitor] Allergy Unknown Verified 06/04/18 23:21 grapefruit Allergy Unknown Verified 06/04/18 23:21 naproxen Allergy Unknown Verified 06/04/18 23:21 Tetracyclines Allergy Rash/Hives Verified 06/04/18 23:21 aspirin AdvReac was told Verified 06/04/18 23:21 not to take r/t nasal polyps Physical Exam Vitals: Vital Signs Temp Pulse Pulse Resp BP BP Pulse Ox 06/05/18 15:36 85 06/05/18 15:32 97.1 F L 69 19 122/77 95 06/05/18 15:31 18 06/05/18 15:23 75 06/05/18 12:46 98.0 F 59 L 18 115/94 06/05/18 11:28 90 124/82 100 06/05/18 10:15 111/51 06/05/18 10:06 85 18 06/05/18 09:13 100 06/05/18 09:02 95 06/05/18 07:38 77 18 112/79 98 06/05/18 05:21 98.2 F 79 20 109/93 96 06/05/18 00:50 98 F 93 20 113/67 96 06/05/18 00:49 101 H 20 06/05/18 00:38 101 H 20 06/04/18 23:46 111 H 24 06/04/18 23:35 111 H 22 06/04/18 23:02 97.7 F 51 L 26 H 148/79 93 L Intake and Output 06/05/18 06/05/18 06/05/18 06:59 14:59 22:59 Other: Weight 64.41 kg PHYSICAL EXAMINATION: GENERAL: The patient is alert and oriented x3, not in any acute distress. Well developed, well nourished. HEENT: Pupils are round and equally reacting to light. EOMI. No scleral icterus. No conjunctival pallor. Normocephalic, atraumatic. No pharyngeal erythema. No thyromegaly. CARDIOVASCULAR: S1 and S2 present. No murmurs, rubs, or gallops. PULMONARY: Minimal expiratory wheezing on exam ABDOMEN: Soft, nontender, nondistended, normoactive bowel sounds. No palpable organomegaly. MUSCULOSKELETAL: No joint swelling or deformity. EXTREMITIES: No clubbing, or pedal edema. Patient does have significant cyanosis and dry gangrene of the right third toe NEUROLOGICAL: Gross neurological examination did not reveal any focal deficits. SKIN: No rashes. Results CBC & Chem 7: 06/04/18 23:25 06/04/18 23:25 Labs: Abnormal Lab Results - Last 24 Hours (Table) 06/04/18 06/04/18 06/04/18 Range/Units 23:25 23:25 23:25 RDW 15.8 H (11.5-15.5) % PT (9.0-12.0) sec INR (<1.2) APTT (22.0-30.0) sec BUN 24 H (9-20) mg/dL Glucose 164 H (74-99) mg/dL Magnesium 1.2 L (1.6-2.3) mg/dL CK-MB (CK-2) 3.1 H (0.0-2.4) ng/mL Troponin I 0.064 H* (0.000-0.034) ng/mL 06/04/18 06/05/18 06/05/18 Range/Units 23:25 05:34 11:54 RDW (11.5-15.5) % PT 12.1 H (9.0-12.0) sec INR 1.2 H (<1.2) APTT 32.1 H (22.0-30.0) sec BUN (9-20) mg/dL Glucose (74-99) mg/dL Magnesium (1.6-2.3) mg/dL CK-MB (CK-2) 3.3 H 3.7 H (0.0-2.4) ng/mL Troponin I 0.074 H* 0.080 H* (0.000-0.034) ng/mL Thrombosis Risk Factor Assmnt - Choose All That Apply Any of the Below Risk Factors Present?: Yes Each Factor Represents 1 point: Abnormal pulmonary function (COPD), Acute [place], Heart failure (<1month) Other Risk Factors: Yes Each Risk Factor Represents 3 Points: Age 75 years or older Other congenital or acquired thrombophilia - If yes, enter type in comment: No Thrombosis Risk Factor Assessment Total Risk Factor Score: 6 Thrombosis Risk Factor Assessment Level: High Risk Assessment and Plan Plan: -Mild acute asthma exacerbation continue to oral steroids inhalational treatments -Atrial fibrillation fairly rate controlled at this time continue with beta jaspreet, continue with IV heparin long-term anti-correlation is on hold. 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 Patient doesn't actively smoke at this time quit smoking in 1972 -Coronary artery disease with stents in the past -Type 2 diabetes mellitus -Benign prostatic hypertrophy
[2018-06-05] MEDS: SYMBICORT 80-4.5 MCG INHALER INHALATION SCH (20:05)
[2018-06-05] MEDS ORDERED: FUROSEMIDE 40 MG TAB PO SCH (21:00)
[2018-06-06] MEDS: IPRATROPIUM-ALBUTEROL 3 ML NEB INHALATION PRN ×3 (03:12→11:52)
--- NOTE | 2018-06-06 07:54 | ECHOF ---
Referral Reason:NSTEMI MEASUREMENTS -------- HEIGHT: 165.1 cm WEIGHT: 64.4 kg BP: 112/79 IVSd: 1.1 cm (0.6 - 1.1) LVIDd: 6.5 cm (3.9 - 5.3) LVPWd: 1.3 cm (0.6 - 1.1) IVSs: 1.1 cm LVIDs: 5.6 cm LVPWs: 1.5 cm LA Diam: 4.5 cm (2.7 - 3.8) LAESV Index (A-L): 51.67 ml/m Ao Diam: 3.7 cm (2.0 - 3.7) LA Diam: 4.9 cm (2.7 - 3.8) MV EXCURSION: 15.857 mm (> 18.000) MV EF SLOPE: 52 mm/s (70 - 150) EPSS: 1.9 cm MV E Mikhail: 0.66 m/s MV DecT: 268 ms MV A Mikhail: 0.81 m/s MV E/A Ratio: 0.81 AV maxP.13 mmHg AV meanP.55 mmHg RAP: 5.00 mmHg RVSP: 30.01 mmHg FINDINGS -------- Paced rhythm. This was a technically adequate study. The left ventricular size is normal. Left ventricular wall thickness is normal. There is severe g lobal hypokinesis of LV . Overall left ventricular systolic function is severely impaired with, an EF < 20%. The right ventricle is normal in size. The left atrium is moderately dilated. LA is severely dilated >40 ml/m2 The right atrial size is normal. There is mild aortic valve sclerosis. There is no evidence of aortic regurgitation. There is mild aortic stenosis present. Mild mitral annular calcification present. Mild mitral regurgitation is present. Mild tricuspid regurgitation present. There is no evidence of pulmonary hypertension. The right v entricular systolic pressure, as measured by Doppler, is 30.01mmHg. Trace/mild (physiologic) pulmonic regurgitation. The aortic root size is normal. Echo free space represents a pericardial fat pad. CONCLUSIONS -------- 1. The left ventricular size is normal. 2. Left ventricular wall thickness is normal. 3. There is severe global hypokinesis of LV . 4. Overall left ventricular systolic function is severely impaired with, an EF < 20%. 5. The right ventricle is normal in size. 6. The left atrium is moderately dilated. 7. LA is severely dilated >40 ml/m2 8. The right atrial size is normal. 9. There is mild aortic valve sclerosis. 10. There is mild aortic stenosis present. 11. Mild mitral annular calcification present. 12. Mild mitral regurgitation is present. 13. Mild tricuspid regurgitation present. 14. There is no evidence of pulmonary hypertension. 15. The right ventricular systolic pressure, as measured by Doppler, is 30.01mmHg. 16. Trace/mild (physiologic) pulmonic regurgitation. 17. The aortic root size is normal. 18. Echo free space represents a pericardial fat pad. PUBLICATION DESIGNER: Katherine Patrick RDCS
--- NOTE | 2018-06-06 08:03 | CDI ---
Documentation Clarification Form Date: 06/06/2018 7:50:34 AM From: Delfina ParekhLazaroSWATI oakley, CCDS Admit Date: 06/04/2018 11:02:00 PM Patient Name: Jas Solo Visit Number: [id number] Discharge Date: ATTENTION: The Clinical Documentation Specialists (CDI) and [facility] Coding Staff appreciate your assistance in clarifying documentation. Please respond to the clarification below the line at the bottom and electronically sign. The CDI & [facility] Coding staff will review the response and follow-up if needed. Please note: Queries are made part of the Legal Health Record. If you have any questions, please contact the author of this message via ITS. Dr. Amber Negron: Per the History & Physical assessment & plan: "Mild acute asthma exacerbation continue to oral steroids inhalational treatments." History/risk factors: Asthma, COPD, Chronic systolic CHF, Paroxysmal Atrial Fibrillation, DM II, CAD w/stent, Prostate CA w/radiation & former smoker. Clinical Indicators: Presented to an outside facility with SOB, mild chest pain & nonproductive cough, slightly elevated troponin (chronic?). Treated for a COPD exacerbation w/DuoNeb & given Lasix for CHF. Transferred due to elevated troponin. No CXR Vital Signs: T 97.7, P 51*, R 26^ (sob), BP 148/79, PO 93 2Lnc Other Clinical Indicators: "sputum production yellowish discoloration and wheezing on exam." Treatment: Nitro sl, Heparin drip, Albuterol INH, IV Solumedrol, IV MagSulf, po Lasix, po Prednisone, Admit to Telemetry Cardiology consult: NSTEMI, Acute on chronic systolic CHF & COPD. In your professional opinion, can you please further specify the following, if known? Severity o Mild intermittent o Mild persistent o Moderate persistent o Severe persistent o Other, please specify o Unable to determine Form or Type o Cough variant o Exercise induced bronchospasm o Extrinsic allergic o Idiosyncratic o Intrinsic nonallergic o Late-onset o Mixed o Other, please specify o Unable to determine (Last Revision: August 2017)o Unable to determine MTDD
[2018-06-06] MEDS: SYMBICORT 80-4.5 MCG INHALER INHALATION SCH (08:04)
[2018-06-06] MEDS ORDERED: ATORVASTATIN 40 MG TAB PO SCH (09:00)
[2018-06-06] MEDS ORDERED: SPIRONOLACTONE 25 MG TAB PO SCH (09:00)
[2018-06-06] MEDS ORDERED: TAMSULOSIN 0.4 MG CAP.ER.24H PO SCH ×2 (09:00→18:30)
[2018-06-06] MEDS: predniSONE 20 MG TAB PO SCH (10:16)
[2018-06-06] MEDS: METOPROLOL TARTRATE 25 MG TAB PO SCH (10:17)
[2018-06-06] MEDS: FUROSEMIDE 40 MG TAB PO SCH (10:17)
[2018-06-06] MEDS: LISINOPRIL 2.5 MG TAB PO SCH (10:17)
--- NOTE | 2018-06-06 10:35 | P.DS ---
Providers Date of admission: 06/04/18 23:02 Attending physician: Jose Maria Vázquez MD Consults: 06/04/18 22:59 Consult Physician Urgent Consulting Provider: [facility] Consult Reason/Comments: NSTEMI Do you want consulting provider notified?: Yes 06/05/18 08:42 Consult Physician Urgent Consulting Provider: Mark Zacarias Consult Reason/Comments: venous insufficiency and right second toe discoloration Do you want consulting provider notified?: Yes Primary care physician: [facility] Course: 72-year-old gentleman with known history of COPD came in with the complaints of shortness of breath cough with sputum production yellowish discoloration and wheezing on exam. Patient does have history of congestive heart failure status post AICD patient denied any significant orthopnea and proximal nocturnal dyspnea patient does have history of atrial fibrillation on long-term anti- correlation which is being continued. Patient is not in CHF exacerbation clinically doesn't appear to be in COPD exacerbation.. Patient incidentally complained of right second toe gangrene which is dry gangrene and the patient was discoloration of distal has been going on since a month. Vascular surgery was consulted patient does have fairly good anterior tibial pulses in the right side. Patient wheezing did improve does still have minimal wheeze for which patient is unfunded milligrams of prednisone which will be continued continue with inhalational treatments. Patient denied any fever chills patient chest x- ray did not show any pneumonic process. Patient's troponins are minimally elevated which is chronic elevation which are around 0.06 and stable at that range. was already evaluated by cardiology please refer to the documentation for cardiac issues. 06/06/2018 Patient's wheezing improved wanted to go home saturating well on room air upon ablation patient was discharged on weaning dose of steroids and 2 more days of levofloxacin patient will be resumed on oral anticoagulation patient was evaluated by Dr. Zacarias for dry gangrene and he will follow him as an outpatient. No changes in antiplatelet therapy her anti-correlation is being made at this time. PHYSICAL EXAMINATION: GENERAL: The patient is alert and oriented x3, not in any acute distress. Well developed, well nourished. HEENT: Pupils are round and equally reacting to light. EOMI. No scleral icterus. No conjunctival pallor. Normocephalic, atraumatic. No pharyngeal erythema. No thyromegaly. CARDIOVASCULAR: S1 and S2 present. No murmurs, rubs, or gallops. PULMONARY: Minimal expiratory wheezing on exam improved compared to yesterday ABDOMEN: Soft, nontender, nondistended, normoactive bowel sounds. No palpable organomegaly. MUSCULOSKELETAL: No joint swelling or deformity. EXTREMITIES: No clubbing, or pedal edema. Patient does have significant cyanosis and dry gangrene of the right second toe NEUROLOGICAL: Gross neurological examination did not reveal any focal deficits. SKIN: No rashes. 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, follow-up with plastic surgery as an outpatient -Coronary artery disease with stents in the past -Type 2 diabetes mellitus -Benign prostatic hypertrophy Patient Condition at Discharge: Serious Plan - Discharge Summary Discharge Rx Participant: No New Discharge Prescriptions: New Levofloxacin [Levaquin] 500 mg PO DAILY 3 Days #3 tab predniSONE 10 mg PO DAILY #30 tab Discontinued methylPREDNISolone [Medrol] 4 mg PO DAILY No Action Atorvastatin [Lipitor] 40 mg PO DAILY Allopurinol [Zyloprim] 300 mg PO DAILY Tamsulosin HCl [Flomax] 0.4 mg PO HS Spironolactone [Aldactone] 25 mg PO DAILY #30 tab metFORMIN HCL [Glucophage] 1,000 mg PO BID #0 Apixaban [Eliquis] 5 mg PO BID #60 tab Furosemide [Lasix] 40 mg PO BID #60 tablet Lisinopril [Zestril] 2.5 mg PO DAILY #30 tab Fluticasone/Salmeterol [Advair 250-50 Diskus] 1 puff INHALATION RT-BID Metoprolol Tartrate [Lopressor] 50 mg PO BID Ipratropium Nebulized [Atrovent Nebulized 0.2 MG/ML] 0.5 mg INHALATION RT- QID PRN PRN Reason: Shortness Of Breath Discharge Medication List Allopurinol [Zyloprim] 300 mg PO DAILY 05/09/15 [History] Atorvastatin [Lipitor] 40 mg PO DAILY 05/09/15 [History] Tamsulosin HCl [Flomax] 0.4 mg PO HS 12/15/15 [History] Spironolactone [Aldactone] 25 mg PO DAILY #30 tab 05/10/16 [Rx] metFORMIN HCL [Glucophage] 1,000 mg PO BID #0 05/10/16 [Rx] Apixaban [Eliquis] 5 mg PO BID #60 tab 07/10/17 [Rx] Furosemide [Lasix] 40 mg PO BID #60 tablet 03/02/18 [Rx] Lisinopril [Zestril] 2.5 mg PO DAILY #30 tab 03/02/18 [Rx] Fluticasone/Salmeterol [Advair 250-50 Diskus] 1 puff INHALATION RT-BID 06/04/18 [History] Ipratropium Nebulized [Atrovent Nebulized 0.2 MG/ML] 0.5 mg INHALATION RT-QID PRN 06/04/18 [History] Metoprolol Tartrate [Lopressor] 50 mg PO BID 06/04/18 [History] Levofloxacin [Levaquin] 500 mg PO DAILY 3 Days #3 tab 06/06/18 [Rx] predniSONE 10 mg PO DAILY #30 tab 06/06/18 [Rx] Follow up Appointment(s)/Referral(s): Mark Zacarias MD [STAFF PHYSICIAN] - 06/14/18 Mohit Martínez DO [Primary Care Provider] - 3 Days Discharge Disposition: HOME SELF-CARE
--- NOTE | 2018-06-06 11:21 | CONS ---
DATE OF CONSULTATION: 06/06/2018 This is a 77-year-old gentleman who has been admitted with history of multiple medical problems. I was consulted for right foot second toe discoloration. He had this for the past 1 month. PAST MEDICAL HISTORY: Patient's medical history includes history of COPD, atrial fibrillation, coronary artery disease, heart failure, diabetes mellitus. PHYSICAL EXAMINATION: Patient was seen in his room. The patient is very short of breath. NECK: Supple. Trachea central. Chest shows rhonchi bilateral. ABDOMEN: Soft. Femoral pulses are present. not palpable. Right foot second toe has some discoloration. IMPRESSION: Right foot second toe discoloration with peripheral vascular disease. This toe is discolored for the past one month. The patient is going home today. We will follow in my office next week. MMODL / IJN: [id number] / MTDD
--- NOTE | 2018-06-06 11:48 | P.PN ---
Subjective Progress Note Date: 06/06/18 This is a 77-year-old gentleman with known history of coronary artery disease and prior multivessel angioplasty, paroxysmal atrial fibrillation, cardiomyopathy, ischemic, severe COPD, prior AICD implantation, who presented to the hospital with symptoms of progressively worsening shortness of breath. His EKG on admission showed normal sinus rhythm with frequent PVCs. Patient was noted to have mild abnormality in his troponins, which have also in the past and passed been noted to be high. Patient was also complaining of some blackish discoloration of his second toe of his right foot which she states has come on gradually. He does have bilateral foot pain. Patient has multiple and complex medical problems including acute exacerbation of systolic congestive heart failure, and possible gangrene. Patient was seen this morning by Dr. Zacarias who stated that he will follow the patient in his office. His blood pressure this morning is 98/60, he is on oral diuretics. He will likely be discharged home today, we'll make him a follow-up appointment in the office. Objective - Vital Signs Vital signs: Vital Signs Temp 97.5 F L 06/06/18 03:43 Pulse 80 06/06/18 09:00 Resp 17 06/06/18 09:00 BP 98/61 06/06/18 03:43 Pulse Ox 93 L 06/06/18 03:43 Intake & Output 06/05/18 06/06/18 06/06/18 18:59 06:59 18:59 Intake Total 175.187 Output Total 350 Balance -174.813 Weight 65 kg Intake: Intake, IV Titration 175.187 Amount Heparin Sod,Pork in 0.45% 175.187 NaCl 25,000 unit In 0.45 % NaCl 1 250ml.bag @ 12 UNITS/KG/HR 7.72 mls/hr IV .Q24H [facility] Rx#: [id number] Output: Urine 350 Other: Voiding Method Urinal Urinal # Voids 1 - Exam PHYSICAL EXAMINATION: GENERAL: The patient is alert and oriented x3, not in any acute distress. Well developed, well nourished. HEENT: Pupils are round and equally reacting to light. EOMI. No scleral icterus. No conjunctival pallor. Normocephalic, atraumatic. No pharyngeal erythema. No thyromegaly. CARDIOVASCULAR: S1 and S2 irregularly irregular . PULMONARY: Minimal expiratory wheezing on exam ABDOMEN: Soft, nontender, nondistended, normoactive bowel sounds. No palpable organomegaly. MUSCULOSKELETAL: No joint swelling or deformity. EXTREMITIES: No clubbing, or pedal edema. Patient does have significant cyanosis and dry gangrene of the right third toe NEUROLOGICAL: Gross neurological examination did not reveal any focal deficits. SKIN: No rashes. - Labs CBC & Chem 7: 06/04/18 23:25 06/04/18 23:25 Labs: Abnormal Lab Results - Last 24 Hours (Table) 06/05/18 06/05/18 06/06/18 Range/Units 11:54 17:45 02:44 APTT 31.3 H 41.4 H (22.0-30.0) sec CK-MB (CK-2) 3.7 H (0.0-2.4) ng/mL Troponin I 0.080 H* (0.000-0.034) ng/mL 06/06/18 Range/Units 09:23 APTT 49.3 H (22.0-30.0) sec CK-MB (CK-2) (0.0-2.4) ng/mL Troponin I (0.000-0.034) ng/mL Assessment and Plan Plan: Assessment and plan #1 systolic congestive heart failure acute on chronic #2 non-ST elevation [place] #3 chronic COPD #4 possible gangrene of the toe #5 coronary artery disease with multivessel angioplasty in the past #6 ischemic cardiomyopathy with prior AICD #7 hypertension #8 hyperlipidemia Plan Patient will be discharged home today, we'll resume his Eliquis, schedule follow -up appointment in the office. DNP note has been reviewed, I agree with a documented findings and plan of care. Patient was seen and examined.
[2018-06-06 11:59] VITALS: BP 110/58; RESP 16; TEMP 97.9
[2018-06-06 12:05] VITALS: BMI 23.8
[2018-06-06 12:07] VITALS: PULSE 80
== END 2018-06-06 13:01 | disposition home health service (06) | DRG 202 ==
LOC: EC 22:55 → 3SCARD 23:02
PROVIDERS: ADMIT Internal Medicine; ATTEND Internal Medicine
DX: J45.901 Unspecified asthma with (acute) exacerbation (principal); I50.22 Chronic systolic (congestive) heart failure; E11.52 Type 2 diabetes mellitus with diabetic peripheral angiopathy with gangrene; I11.0 Hypertensive heart disease with heart failure; E78.5 Hyperlipidemia, unspecified; H91.90 Unspecified hearing loss, unspecified ear; I25.10 Atherosclerotic heart disease of native coronary artery without angina pectoris; I25.2 Old myocardial infarction; I25.5 Ischemic cardiomyopathy; I48.0 Paroxysmal atrial fibrillation; I49.3 Ventricular premature depolarization; I87.2 Venous insufficiency (chronic) (peripheral); J44.9 Chronic obstructive pulmonary disease, unspecified; L80 Vitiligo; M06.9 Rheumatoid arthritis, unspecified; N40.0 Benign prostatic hyperplasia without lower urinary tract symptoms; Z79.01 Long term (current) use of anticoagulants; Z79.84 Long term (current) use of oral hypoglycemic drugs; Z79.899 Other long term (current) drug therapy; Z82.49 Family history of ischemic heart disease and other diseases of the circulatory system; Z82.5 Family history of asthma and other chronic lower respiratory diseases; Z85.46 Personal history of malignant neoplasm of prostate; Z87.891 Personal history of nicotine dependence; Z95.5 Presence of coronary angioplasty implant and graft; Z95.810 Presence of automatic (implantable) cardiac defibrillator; Z96.641 Presence of right artificial hip joint; Z88.6 Allergy status to analgesic agent; Z88.1 Allergy status to other antibiotic agents; Z88.8 Allergy status to other drugs, medicaments and biological substances; R74.8 Abnormal levels of other serum enzymes; Z92.3 Personal history of irradiation; Z87.01 Personal history of pneumonia (recurrent); Z90.49 Acquired absence of other specified parts of digestive tract
CPT/HCPCS: 80053; 80061; 82550; 82553; 83036; 83735; 83880; 84484; 85025; 85610; 85730; 93005; 93306; 94640; 94760; 96365; 96366; 96367; 96375; 99291

== ENCOUNTER 2018-08-04 22:11 | Inpatient (IN) | payer MEDICARE ==
[2018-08-04 23:41] LABS: Basophils % (A) 1 %; Eosinophils # (A) 0.2 k/uL (0-0.7); Eosinophils % (A) 2 %; HCT 38.8 % (39.0-53.0); HGB 12.3 gm/dL (13.0-17.5); Lymphocytes # (A) 1.3 k/uL (1.0-4.8); Lymphocytes % (A) 14 %; MCHC 31.8 g/dL (31.0-37.0); MCV 94.3 fL (80.0-100.0); Mean Platelet Volume 6.2; Monocytes # (A) 0.6 k/uL (0-1.0); Monocytes % (A) 6 %; Neutrophils # (A) 6.8 k/uL (1.3-7.7); Neutrophils % (A) 74 %; Platelet Count 276 k/uL (150-450); RBC 4.11 m/uL (4.30-5.90); RDW 15.1 % (11.5-15.5); WBC 9.2 k/uL (3.8-10.6)
--- NOTE | 2018-08-04 23:51 | XR ---
EXAM: XR Chest, 2 Views CLINICAL HISTORY: ITS.REASON XR Reason: difficulty breathing TECHNIQUE: Frontal and lateral views of the chest. COMPARISON: Chest radiograph on 03/01/2018 FINDINGS: Hardware: None. Lungs/pleura: Similar eventration of the right hemidiaphragm. Mild bibasilar atelectasis. No focal consolidation. No pleural effusion or pneumothorax. Heart/mediastinum: Stable enlargement of the cardiac silhouette. Atherosclerotic calcifications of the aorta. Left-sided pacemaker/AICD. Soft tissues: Unremarkable. Bones: No acute fracture. Degenerative changes of the acromioclavicular joints. Mild right convex curvature of the thoracic spine. Upper abdomen: Normal. IMPRESSION: No acute disease identified. Bibasilar atelectasis.
[2018-08-04 23:52] LABS: ALT 36 U/L (21-72); AST 20 U/L (17-59); Albumin 4.3 g/dL (3.5-5.0); Alkaline Phosphatase 80 U/L (38-126); Anion Gap 10 mmol/L; Blood Urea Nitrogen 22 mg/dL (9-20); Carbon Dioxide 28 mmol/L (22-30); Chloride 103 mmol/L (98-107); Glucose 130 mg/dL (74-99); Magnesium 1.6 mg/dL (1.6-2.3); Potassium 4.5 mmol/L (3.5-5.1); Sodium 141 mmol/L (137-145); Total Bilirubin 0.4 mg/dL (0.2-1.3); Total Protein 7.1 g/dL (6.3-8.2)
[2018-08-04 23:55] LABS: Prothrombin Time 10.5 sec (9.0-12.0)
--- NOTE | 2018-08-04 23:56 | XR ---
EXAM: XR Right Foot Complete, 3 or More Views CLINICAL HISTORY: ITS.REASON XR Reason: Pain TECHNIQUE: Frontal, lateral and oblique views of the right foot. COMPARISON: None FINDINGS: Bones/joints: No acute fracture or dislocation identified in the right foot. Nonspecific tiny densities along the distal tip of the right fibula, incompletely evaluated. Prominent degenerative changes of the right first MTP joint. Degenerative changes of the interphalangeal joints. Osteopenia. Posterior and plantar calcaneal spurs. Degenerative changes of the midfoot. Soft tissues: Vascular calcifications. Prominent soft tissue swelling of the dorsal right foot and about the right ankle. IMPRESSION: No acute fracture or dislocation identified in the right foot. Prominent soft tissue swelling of the dorsal right foot and about the right ankle.
[2018-08-05] MEDS ORDERED: FUROSEMIDE 10 MG/ML 4 ML VIAL IV STA (00:37)
[2018-08-05] MEDS ORDERED: MORPHINE SULFATE 4 MG/ML SYRINGE IVP STA (00:37)
[2018-08-05] MEDS ORDERED: VANCOMYCIN IV PER PHARMACY 1 EACH MISC MISCELLANE PRN (00:44)
[2018-08-05] MEDS ORDERED: NALOXONE 0.4 MG/ML 1 ML VIAL IV PRN (00:45)
--- NOTE | 2018-08-05 00:52 | ED ---
General Adult HPI - General Chief complaint: Extremity Problem,Nontraumatic Stated complaint: feet,knees, and groin swelling Time Seen by Provider: 08/04/18 22:42 Source: patient, RN notes reviewed, old records reviewed Mode of arrival: wheelchair Limitations: no limitations - History of Present Illness Initial comments: 77-year-old male presented for evaluation of bilateral lower extremity swelling. Patient has history of congestive heart failure, and nonhealing wound on the second toe right foot. He is scheduled for surgical intervention with vascular surgery in the next one week. He's noted some increased redness and swelling in the right foot compared to the left. No fever or chills. No abdominal pain. No chest pain. Mild dyspnea. Patient's states the swelling progresses up to his groin. This has resulted in worsening lower extremity pain. - Related Data Home Medications Medication Instructions Recorded Confirmed Allopurinol [Zyloprim] 300 mg PO DAILY 05/09/15 08/04/18 Tamsulosin HCl [Flomax] 0.4 mg PO HS 05/13/15 08/04/18 Metoprolol Tartrate [Lopressor] 50 mg PO BID 06/04/18 08/04/18 Albuterol Nebulized [Ventolin 2.5 mg INHALATION DAILY PRN 08/04/18 08/04/18 Nebulized] Atorvastatin [Lipitor] 40 mg PO HS 08/04/18 08/04/18 Fluticasone/Salmeterol [Advair 1 puff INHALATION RT-BID 08/04/18 08/04/18 250-50 Diskus] methylPREDNISolone [Medrol] 4 mg PO DAILY 08/04/18 08/04/18 Previous Rx's Medication Instructions Recorded Spironolactone [Aldactone] 25 mg PO DAILY #30 tab 05/10/16 metFORMIN HCL [Glucophage] 1,000 mg PO BID #0 05/10/16 Apixaban [Eliquis] 5 mg PO BID #60 tab 07/10/17 Furosemide [Lasix] 40 mg PO BID #60 tablet 03/02/18 Lisinopril [Zestril] 2.5 mg PO DAILY #30 tab 03/02/18 Allergies Allergy/AdvReac Type Severity Reaction Status Date / Time grapefruit Allergy Unknown Verified 08/04/18 23:13 naproxen Allergy Unknown Verified 08/04/18 23:13 Tetracyclines Allergy Rash/Hives Verified 08/04/18 23:13 aspirin AdvReac was told Verified 08/04/18 23:13 not to take r/t nasal polyps Review of Systems ROS Statement: Those systems with pertinent positive or pertinent negative responses have been documented in the HPI. ROS Other: All systems not noted in ROS Statement are negative. Past Medical History Past Medical History: Atrial Fibrillation, Asthma, Coronary Artery Disease (CAD), Cancer, Heart Failure, COPD, Diabetes Mellitus, Hearing Disorder / Deafness, Myocardial Infarction ([place]), Pneumonia, Prostate Disorder, Rheumatoid Arthritis ([place]) Additional Past Medical History / Comment(s): Prostate cancer (2009) with radiation, bronchitis, NIDDM type II, neuropathy bilateral hands and feet, R foot 2nd toe black , gout bilateral elbows, L wrist tendonitis, BPH, CHITIMACHA bilaterally, vitiligo Last Myocardial Infarction Date:: 2015 History of Any Multi-Drug Resistant Organisms: None Reported Past Surgical History: AICD, Appendectomy, Cholecystectomy, Heart Catheterization With Stent, Joint Replacement, Pacemaker, Tonsillectomy Additional Past Surgical History / Comment(s): PCI with stents 2015, AICD/pacermultiple nasal surgeries for nasal polyps, right hip replacement Past Anesthesia/Blood Transfusion Reactions: No Reported Reaction Date of Last Stent Placement:: 2015 Type of Cardiac Device: Permanent Pacemaker, AICD Device Placement Date:: 2014 Past Psychological History: No Psychological Hx Reported Smoking Status: Former smoker - Past Family History Mother Family Medical History: No Reported History Brother(s) Additional Family Medical History / Comment(s): tuberculosis in the Father Family Medical History: Myocardial Infarction ([place]) General Exam Limitations: no limitations General appearance: alert, in no apparent distress Head exam: Present: atraumatic, normocephalic Eye exam: Present: normal appearance, PERRL ENT exam: Present: normal exam Neck exam: Present: normal inspection. Absent: tenderness, meningismus Respiratory exam: Present: rales, decreased breath sounds. Absent: normal lung sounds bilaterally, respiratory distress Cardiovascular Exam: Present: regular rate, normal rhythm GI/Abdominal exam: Present: soft. Absent: distended, tenderness Extremities exam: Present: pedal edema (Bilateral lower extremity edema, worse on the right specifically right foot, there is erythema, gangrene of the second digit right foot) Neurological exam: Present: alert, oriented X3 Psychiatric exam: Present: normal affect, normal mood Course Vital Signs 08/04/18 22:27 Temperature 98.4 F Pulse Rate 77 Respiratory 20 Rate Blood Pressure 127/80 O2 Sat by Pulse 96 Oximetry EKG Findings - EKG Comments: EKG Findings:: EKG: Normal sinus rhythm, left axis deviation, widened QRS, rate of 64, MT interval 206, QTC 437, QRS duration 124, no ST segment elevation Medical Decision Making - Medical Decision Making 77 -year-old male presenting for worsening bilateral extremity swelling, mild dyspnea, and wound to the right second toe with erythema and soft tissue swelling. Exam concerning for cellulitis with gangrene. X-rays obtained of the foot, negative for soft tissue gas. Chest x-ray obtained, negative for focal pneumonia. Patient has normal white blood cell count 9.2, hemoglobin 12.3, BMP is elevated 5020. Troponin is elevated 0.054, patient does have chronic troponin elevation. Doubt acute ischemia. Likely secondary to heart failure. Patient will be kept for IV diuresis, he is given IV antibiotics for concerned of cellulitis progressing from gangrenous second toe on the right. - Lab Data Result diagrams: 08/04/18 23:14 08/04/18 23:14 Lab Results 08/04/18 08/04/18 08/04/18 Range/Units 23:14 23:14 23:14 WBC 9.2 (3.8-10.6) k/uL RBC 4.11 L (4.30-5.90) m/uL Hgb 12.3 L (13.0-17.5) gm/dL Hct 38.8 L (39.0-53.0) % MCV 94.3 (80.0-100.0) fL MCH 30.0 (25.0-35.0) pg MCHC 31.8 (31.0-37.0) g/dL RDW 15.1 (11.5-15.5) % Plt Count 276 (150-450) k/uL Neutrophils % 74 % Lymphocytes % 14 % Monocytes % 6 % Eosinophils % 2 % Basophils % 1 % Neutrophils # 6.8 (1.3-7.7) k/uL Lymphocytes # 1.3 (1.0-4.8) k/uL Monocytes # 0.6 (0-1.0) k/uL Eosinophils # 0.2 (0-0.7) k/uL Basophils # 0.0 (0-0.2) k/uL PT (9.0-12.0) sec INR (<1.2) APTT (22.0-30.0) sec Sodium 141 (137-145) mmol/L Potassium 4.5 (3.5-5.1) mmol/L Chloride 103 (98-107) mmol/L Carbon Dioxide 28 (22-30) mmol/L Anion Gap 10 mmol/L BUN 22 H (9-20) mg/dL Creatinine 0.80 (0.66-1.25) mg/dL Est GFR (CKD-EPI)AfAm >90 (>60 ml/min/1.73 sqM) Est GFR (CKD-EPI)NonAf 88 (>60 ml/min/1.73 sqM) Glucose 130 H (74-99) mg/dL Calcium 9.0 (8.4-10.2) mg/dL Magnesium 1.6 (1.6-2.3) mg/dL Total Bilirubin 0.4 (0.2-1.3) mg/dL AST 20 (17-59) U/L ALT 36 (21-72) U/L Alkaline Phosphatase 80 (38-126) U/L Troponin I (0.000-0.034) ng/mL NT-Pro-B Natriuret Pep 5020 pg/mL Total Protein 7.1 (6.3-8.2) g/dL Albumin 4.3 (3.5-5.0) g/dL 08/04/18 08/04/18 Range/Units 23:14 23:14 WBC (3.8-10.6) k/uL RBC (4.30-5.90) m/uL Hgb (13.0-17.5) gm/dL Hct (39.0-53.0) % MCV (80.0-100.0) fL MCH (25.0-35.0) pg MCHC (31.0-37.0) g/dL RDW (11.5-15.5) % Plt Count (150-450) k/uL Neutrophils % % Lymphocytes % % Monocytes % % Eosinophils % % Basophils % % Neutrophils # (1.3-7.7) k/uL Lymphocytes # (1.0-4.8) k/uL Monocytes # (0-1.0) k/uL Eosinophils # (0-0.7) k/uL Basophils # (0-0.2) k/uL PT 10.5 (9.0-12.0) sec INR 1.0 (<1.2) APTT 26.0 (22.0-30.0) sec Sodium (137-145) mmol/L Potassium (3.5-5.1) mmol/L Chloride (98-107) mmol/L Carbon Dioxide (22-30) mmol/L Anion Gap mmol/L BUN (9-20) mg/dL Creatinine (0.66-1.25) mg/dL Est GFR (CKD-EPI)AfAm (>60 ml/min/1.73 sqM) Est GFR (CKD-EPI)NonAf (>60 ml/min/1.73 sqM) Glucose (74-99) mg/dL Calcium (8.4-10.2) mg/dL Magnesium (1.6-2.3) mg/dL Total Bilirubin (0.2-1.3) mg/dL AST (17-59) U/L ALT (21-72) U/L Alkaline Phosphatase (38-126) U/L Troponin I 0.054 H* (0.000-0.034) ng/mL NT-Pro-B Natriuret Pep pg/mL Total Protein (6.3-8.2) g/dL Albumin (3.5-5.0) g/dL Disposition Clinical Impression: Elevated troponin I level, Congestive heart failure, Cellulitis of right foot Disposition: ADMITTED IP TO THIS [facility] Condition: Stable Is patient prescribed a controlled substance at d/c from ED?: No Referrals: Mohit Martínez DO [Primary Care Provider] - 1-2 days Decision to Admit Reason: Admit from EC Decision Date: 08/05/18 Decision Time: 00:52
[2018-08-05] MEDS ORDERED: VANCOMYCIN 1,250 MG in SODIUM CHLORIDE 0.9% 250 ML IVPB ONE (01:30)
[2018-08-05] MEDS: MORPHINE SULFATE 4 MG/ML SYRINGE IV PRN ×4 (03:37→19:11)
[2018-08-05 07:44] LABS: Glucose,Whole Blood 138 mg/dL (75-99)
[2018-08-05] MEDS: METOPROLOL TARTRATE 50 MG TAB PO SCH ×2 (10:08→20:53)
[2018-08-05] MEDS: SPIRONOLACTONE 25 MG TAB PO SCH (10:08)
[2018-08-05] MEDS: APIXABAN 5 MG TAB PO SCH ×2 (10:09→20:54)
[2018-08-05] MEDS: LISINOPRIL 2.5 MG TAB PO SCH (10:09)
[2018-08-05] MEDS: FUROSEMIDE 10 MG/ML 4 ML VIAL IV SCH ×2 (10:09→20:53)
[2018-08-05 12:03] LABS: Glucose,Whole Blood 158 mg/dL (75-99)
[2018-08-05] MEDS: INSULIN ASPART (NovoLOG) 100 UNIT/ML VIAL SQ SCH ×3 (12:38→22:14)
[2018-08-05] MEDS: VANCOMYCIN 1,250 MG in SODIUM CHLORIDE 0.9% 250 ML IVPB SCH (14:27)
[2018-08-05] MEDS: CYCLOBENZAPRINE 10 MG TAB PO PRN ×2 (14:27→20:53)
--- NOTE | 2018-08-05 15:16 | P.HPIM ---
History of Present Illness 72-year-old male came in with the complaints of bilateral lower extremity swelling and gangrene of the second toe patient has peripheral vascular disease he says he quit smoking 27 years ago patient denied any shortness of breath [place] vomiting. Patient does have history of asthma atrial fibrillation heart failure does have AICD and his previous ejection fraction was less than 20% patient does have pedal edema patient is on IV Lasix at this time. Chest x- rayand pneumonia pulmonary edema. Patient was started on vancomycin was subsequently admitted for gangrene of the second toe possibility is dry gangrene although it does have significant falls well infection cannot be ruled out vascular surgery was consulted infectious disease was consulted wound cultures will be obtained patient will be started on Zosyn as well. Patient does have minimally elevated troponins denied any chest pain does have some chronic ST-T wave changes. Cardiology was will be consulted patient has normal serum creatinine. Foot x-ray did not show any bone involvement, in the past vascular surgeon discussed with him regarding atherectomy of the right the lower limb vasculature if that fails patient will need below-knee amputation. Review of Systems REVIEW OF SYSTEMS: CONSTITUTIONAL: No fever, no malaise, no fatigue. HEENT: No recent visual problems or hearing problems. Denied any sore throat. CARDIOVASCULAR: No chest pain, orthopnea, PND, no palpitations, no syncope. PULMONARY: No shortness of breath, no cough, no hemoptysis. GASTROINTESTINAL: No diarrhea, no nausea, no vomiting, no abdominal pain. NEUROLOGICAL: No headaches, no weakness, no numbness. HEMATOLOGICAL: Denies any bleeding or petechiae. GENITOURINARY: Denies any burning micturition, frequency, or urgency. MUSCULOSKELETAL/RHEUMATOLOGICAL: As mentioned in HPI ENDOCRINE: Denies any polyuria or polydipsia. The rest of the 14-point review of systems is negative. Past Medical History Past Medical History: Atrial Fibrillation, Asthma, Coronary Artery Disease (CAD), Cancer, Heart Failure, COPD, Diabetes Mellitus, Hearing Disorder / Deafness, Myocardial Infarction ([place]), Pneumonia, Prostate Disorder, Rheumatoid Arthritis (RA) Additional Past Medical History / Comment(s): Prostate cancer (2009) with radiation, bronchitis, NIDDM type II, neuropathy bilateral hands and feet, R foot 2nd toe black , gout bilateral elbows, L wrist tendonitis, BPH, [place] bilaterally, vitiligo Last Myocardial Infarction Date:: 2015 History of Any Multi-Drug Resistant Organisms: None Reported Past Surgical History: AICD, Appendectomy, Cholecystectomy, Heart Catheterization With Stent, Joint Replacement, Pacemaker, Tonsillectomy Additional Past Surgical History / Comment(s): PCI with stents 2015, AICD/pacermultiple nasal surgeries for nasal polyps, right hip replacement Past Anesthesia/Blood Transfusion Reactions: No Reported Reaction Date of Last Stent Placement:: 2015 Type of Cardiac Device: Permanent Pacemaker, AICD Device Placement Date:: 2014 Past Psychological History: No Psychological Hx Reported Additional Psychological History / Comment(s): Pt lives alone in 2 story home. has 13 steps to 2nd floor and 4 porch steps. No home care services, has cane/walker,nebulizer. Smoking Status: Former smoker Past Alcohol Use History: Occasional Additional Past Alcohol Use History / Comment(s): Pt started smoking in 1958 and quit in 1972. Past Drug Use History: None Reported - Past Family History Mother Family Medical History: No Reported History Brother(s) Additional Family Medical History / Comment(s): tuberculosis in the Father Family Medical History: Myocardial Infarction ([place]) Medications and Allergies Home Medications Medication Instructions Recorded Confirmed Type Allopurinol [Zyloprim] 300 mg PO DAILY 05/09/15 08/04/18 History Tamsulosin HCl [Flomax] 0.4 mg PO HS 05/13/15 08/04/18 History Spironolactone [Aldactone] 25 mg PO DAILY #30 tab 05/10/16 08/04/18 Rx metFORMIN HCL [Glucophage] 1,000 mg PO BID #0 05/10/16 08/04/18 Rx Apixaban [Eliquis] 5 mg PO BID #60 tab 07/10/17 08/04/18 Rx Furosemide [Lasix] 40 mg PO BID #60 tablet 03/02/18 08/04/18 Rx Lisinopril [Zestril] 2.5 mg PO DAILY #30 tab 03/02/18 08/04/18 Rx Metoprolol Tartrate [Lopressor] 50 mg PO BID 06/04/18 08/04/18 History Albuterol Nebulized [Ventolin 2.5 mg INHALATION DAILY PRN 08/04/18 08/04/18 History Nebulized] Atorvastatin [Lipitor] 40 mg PO HS 08/04/18 08/04/18 History Fluticasone/Salmeterol [Advair 1 puff INHALATION RT-BID 08/04/18 08/04/18 History 250-50 Diskus] methylPREDNISolone [Medrol] 4 mg PO DAILY 08/04/18 08/04/18 History Allergies Allergy/AdvReac Type Severity Reaction Status Date / Time grapefruit Allergy Unknown Verified 08/04/18 23:13 naproxen Allergy Unknown Verified 08/04/18 23:13 Tetracyclines Allergy Rash/Hives Verified 08/04/18 23:13 aspirin AdvReac was told Verified 08/04/18 23:13 not to take r/t nasal polyps Physical Exam Vitals: Vital Signs Temp Pulse Pulse Resp BP BP Pulse Ox 08/05/18 07:13 97.6 F 73 16 147/86 94 L 08/05/18 00:59 66 20 122/88 97 08/04/18 22:27 98.4 F 77 20 127/80 96 Intake and Output 08/05/18 08/05/18 08/05/18 06:59 14:59 22:59 Intake Total 450 100 Balance 450 100 Intake: Intake, IV Titration 350 Amount Vancomycin 1,250 mg In 250 Sodium Chloride 0.9% 250 ml @ 125 mls/hr IVPB Q12H [facility] Rx#:[id number] cefTRIAXone 1 gm In 100 Sodium Chloride 0.9% 50 ml @ 100 mls/hr IVPB ONCE STA Rx#:[id number] Oral 100 100 Other: Voiding Method Toilet # Voids 1 3 Weight 70.5 kg 70.5 kg PHYSICAL EXAMINATION: GENERAL: The patient is alert and oriented x3, not in any acute distress. Well developed, well nourished. HEENT: Pupils are round and equally reacting to light. EOMI. No scleral icterus. No conjunctival pallor. Normocephalic, atraumatic. No pharyngeal erythema. No thyromegaly. CARDIOVASCULAR: S1 and S2 present. No murmurs, rubs, or gallops. PULMONARY: Chest is clear to auscultation, no wheezing or crackles. ABDOMEN: Soft, nontender, nondistended, normoactive bowel sounds. No palpable organomegaly. MUSCULOSKELETAL: No joint swelling or deformity. EXTREMITIES: No cyanosis, clubbing, patient does have bilateral pitting pedal edema 2+ patient has gangrene of the second toe mostly appears like try gangrene but does have significant false smell with some redness extending proximally into second tarsometatarsal area on the right side. NEUROLOGICAL: Gross neurological examination did not reveal any focal deficits. SKIN: No rashes. Results CBC & Chem 7: 08/04/18 23:14 08/04/18 23:14 Labs: Abnormal Lab Results - Last 24 Hours (Table) 08/04/18 08/04/18 08/04/18 Range/Units 23:14 23:14 23:14 RBC 4.11 L (4.30-5.90) m/uL Hgb 12.3 L (13.0-17.5) gm/dL Hct 38.8 L (39.0-53.0) % BUN 22 H (9-20) mg/dL Glucose 130 H (74-99) mg/dL POC Glucose (mg/dL) (75-99) mg/dL Troponin I 0.054 H* (0.000-0.034) ng/mL 08/05/18 08/05/18 08/05/18 Range/Units 07:11 08:09 11:46 RBC (4.30-5.90) m/uL Hgb (13.0-17.5) gm/dL Hct (39.0-53.0) % BUN (9-20) mg/dL Glucose (74-99) mg/dL POC Glucose (mg/dL) 138 H (75-99) mg/dL Troponin I 0.062 H* 0.065 H* (0.000-0.034) ng/mL 08/05/18 Range/Units 11:50 RBC (4.30-5.90) m/uL Hgb (13.0-17.5) gm/dL Hct (39.0-53.0) % BUN (9-20) mg/dL Glucose (74-99) mg/dL POC Glucose (mg/dL) 158 H (75-99) mg/dL Troponin I (0.000-0.034) ng/mL Thrombosis Risk Factor Assmnt - Choose All That Apply Any of the Below Risk Factors Present?: No Other Risk Factors: Yes Each Risk Factor Represents 2 Points: Age 61-74 years Other congenital or acquired thrombophilia - If yes, enter type in comment: No Thrombosis Risk Factor Assessment Total Risk Factor Score: 2 Thrombosis Risk Factor Assessment Level: Low Risk Assessment and Plan Plan: -Dry gangrene: Secondary to progressive disease infection cannot be ruled out because of which patient will be started on vancomycin and Zosyn infectious dis ease and vascular surgery was consulted patient may require amputation of the toe at least 10-mildly elevated troponins etiology is not clear does not have any chest pain cardiology will be consulted may be related to infection -Congestive heart failure chronic systolic dysfunction with positive mild acute exacerbation patient with continued on IV Lasix monitor kidney function -Coronary disease with a history of stents in the past patient does have ischemic edema after -Type 2 diabetes mellitus -Benign prostatic hypertrophic -Atrial fibrillation presently rate controlled on Eliquis which will be continued
[2018-08-05 16:41] LABS: Glucose,Whole Blood 151 mg/dL (75-99)
[2018-08-05] MEDS: TAMSULOSIN 0.4 MG CAP.ER.24H PO SCH (20:54)
[2018-08-05 22:23] LABS: Glucose,Whole Blood 143 mg/dL (75-99)
--- NOTE | 2018-08-06 00:11 | CONS ---
CONSULTATION DATE OF SERVICE: 08/05/2018. REASON FOR CONSULTATION: Right 2nd toe gangrene and cellulitis. HISTORY OF PRESENT ILLNESS: The patient is a 77-year-old male who apparently developed a small necrotic area to his right second toe back in May of 2018 for which the patient has been evaluated and managed both inpatient as well as outpatient by Dr. Zacarias. The patient apparently did have evidence of peripheral arterial disease and for a bypass for amputation of his second toe. The patient presenting to the ER at [facility] with a chief complaint of bilateral lower extremity swelling and worsening swelling and redness of his right foot in addition to the blackish discoloration of the second toe. The patient has been complaining of throbbing pain to his right second toe with intensity 7 to 8 out of 10 slight worsening when he walks on it. Some improvement with elevation of his foot with associated swelling and redness which is mostly spreading into the dorsum of his right foot. The patient also was complaining of increasing shortness of breath with minimal exertion. Also having a cough but no chest pain. No nausea, no vomiting. No abdominal pain or any diarrhea. With these symptoms, the patient has been evaluated by the ER physician. On arrival to the ER, the patient did have x-rays of the right foot which shows no fracture, dislocation identified in the right foot. Soft tissue swelling of the dorsum of the right foot. The patient did have a chest x-ray. No acute disease identified. The patient, on presentation, has been afebrile. White count was normal. was elevated. The patient was started on vancomycin, admitted to the hospital. Infectious Disease was consulted for further recommendation regarding antibiotic therapy. REVIEW OF SYSTEMS: Positive for weakness. Denies any fever. Eyes no complaint. ENT no complaint. Respiratory as per HPI. Cardiovascular as per HPI. Genitourinary no complaint. Gastrointestinal: No complaint. Musculoskeletal as per HPI. Integumentary as per HPI. Psychological no complaint. Endocrine no complaint. Neurologic no complaint. PAST MEDICAL HISTORY: Atrial fibrillation, asthma, coronary artery disease, heart failure, COPD, diabetes mellitus, myocardial infarction, pneumonia, rheumatoid arthritis, prostate cancer. PAST SURGICAL HISTORY: ICD placement, appendectomy, cholecystectomy, PTCA with stent, tonsillectomy, right hip replacement. SOCIAL HISTORY: The patient smoked from 9 to 1972. Occasionally drinks. No drug use. FAMILY HISTORY: Father history of [place], brother with history of tuberculosis. ALLERGIES: TO NAPROXEN, TETRACYCLINE AND ASPIRIN. MEDICATION: Medications include the patient is currently on Tylenol and Eliquis, Flexeril, Lasix, NovoLog, Zestril, Lopressor, morphine sulfate, Narcan, Aldactone, Vancomycin, NovoLog sliding scale. PHYSICAL EXAMINATION: Blood pressure 137/93 with a pulse of 70, temperature 97.6. He is 97% on room air. General description: An elderly male lying in bed in no distress. No tachypnea or accessory muscles of respiration use. HEENT: Shows no pallor or scleral icterus. Oral mucosa is dry. No pharyngeal erythema. No thrush. Neck: Trachea central. No thyromegaly. Lungs unlabored breathing, decreased breath sounds. No wheeze. Heart S1, S2. Regular rate and rhythm. ABDOMEN: Soft, no tenderness. Extremities: 1+ edema of the feet. The patient right second toe is necrotic especially with distal phalanx. No foul smelling drainage with surrounding redness. Neurological: Patient is awake, alert, oriented times three. Mood and affect normal. LABS: Hemoglobin is 12.1, white count 9.2, BUN of 22, creatinine 0.86, electrolytes have been normal. Liver enzymes are normal. Troponin is elevated. Blood cultures obtained currently pending. CT report as mentioned above. 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 We will need to cover for the gram-positive skin ai. However, gram-negative not entirely excluded. PLAN: 1. Vancomycin pharmacy to dose target of 15 while watching his kidney function closely. 2. No specific dressing to the right second toe. However, can be protected from any trauma. 3. Await the vascular surgery evaluation and possible angiogram amputation of the distal and middle phalanx. 4. We will follow up on clinical condition and culture to further adjust medication if needed. Thank you for this consultation. Will follow this patient along with you. MMODL / IJN: [id number] /
[2018-08-06] MEDS: VANCOMYCIN 1,250 MG in SODIUM CHLORIDE 0.9% 250 ML IVPB SCH ×2 (01:57→13:47)
[2018-08-06] MEDS: MORPHINE SULFATE 4 MG/ML SYRINGE IV PRN ×3 (06:12→19:50)
[2018-08-06 06:59] LABS: Glucose,Whole Blood 181 mg/dL (75-99)
[2018-08-06] MEDS: APIXABAN 5 MG TAB PO SCH ×2 (07:37→19:49)
[2018-08-06] MEDS: METOPROLOL TARTRATE 50 MG TAB PO SCH ×2 (07:37→19:49)
[2018-08-06] MEDS: FUROSEMIDE 10 MG/ML 4 ML VIAL IV SCH ×2 (07:37→19:49)
[2018-08-06] MEDS: INSULIN ASPART (NovoLOG) 100 UNIT/ML VIAL SQ SCH ×4 (07:37→21:54)
[2018-08-06] MEDS: SPIRONOLACTONE 25 MG TAB PO SCH (07:37)
[2018-08-06] MEDS: LISINOPRIL 2.5 MG TAB PO SCH (07:37)
[2018-08-06 08:50] LABS: Anion Gap 7 mmol/L; Blood Urea Nitrogen 18 mg/dL (9-20); Calcium 8.6 mg/dL (8.4-10.2); Carbon Dioxide 28 mmol/L (22-30); Chloride 101 mmol/L (98-107); Glucose 156 mg/dL (74-99); Magnesium 1.4 mg/dL (1.6-2.3); Potassium 3.7 mmol/L (3.5-5.1); Sodium 136 mmol/L (137-145)
[2018-08-06 08:55] LABS: HCT 35.5 % (39.0-53.0); HGB 11.3 gm/dL (13.0-17.5); MCH 30.2 pg (25.0-35.0); MCHC 31.8 g/dL (31.0-37.0); MCV 94.9 fL (80.0-100.0); Mean Platelet Volume 6.4; Platelet Count 239 k/uL (150-450); RBC 3.74 m/uL (4.30-5.90); WBC 9.1 k/uL (3.8-10.6)
--- NOTE | 2018-08-06 09:13 | P.CON ---
Consult Note - . Consult date: 08/06/18 Assessment/Plan:: Patient is a 77-year-old male who was admitted to the hospital in reference to issues relating to his cardiopulmonary status. He had seen Dr. Parada in the recent past regarding ischemic changes of the second toe of the right foot. He has been scheduled for percutaneous intervention possible open bypass on August 10, 4 days from today. He reports no changes in his foot or toe since his last evaluation by Dr. Parada. My evaluation revealed the patient be a awake alert cooperative no apparent distress. Vital signs are stable and the patient is afebrile. Femoral pulses are intact bilaterally while the right popliteal, DP and PT pulses are absent. I gangrenous changes noted of the second toe right foot. There is no evidence of subcutaneous abscess, cellulitis or drainage. Review of x-ray demonstrates no subcutaneous gas nor evidence of osteomyelitis. Review of laboratory values demonstrates a hemoglobin 12.3 hematocrit 30.8 and white cell count 9.2 and a platelet count of 276. Recommendation: #1 continue medical therapy as outlined by appropriate specialists. #2 continue antibiotics. #3 proceed with revascularization assuming no new medical contraindications. Surgery scheduled to be performed on August 10.
[2018-08-06] MEDS: CYCLOBENZAPRINE 10 MG TAB PO PRN (10:40)
[2018-08-06 12:09] LABS: Glucose,Whole Blood 167 mg/dL (75-99)
--- NOTE | 2018-08-06 12:35 | P.PN ---
Subjective 72-year-old admitted for right second toe gangrene and the secondary cellulitis patient is on vancomycin which will be continued. Patient will undergo amputation procedure on patient meantime wanted to go home. So for blood cultures are negative Constitutional: Denied any fatigue denied any fever. Cardio vascular: denied any chest pain, palpitations Gastrointestinal denied any nausea vomiting Pulmonary: Denied any shortness of breath cough Neurologic denied any new focal deficits All inpatient medications were reviewed and appropriate changes in these medications as dictated in the interval history and assessment and plan. Objective - Vital Signs Vital signs: Vital Signs Temp 98.4 F 08/06/18 07:00 Pulse 73 08/06/18 07:00 Resp 12 08/06/18 07:00 BP 131/81 08/06/18 07:00 Pulse Ox 97 08/06/18 08:26 Intake & Output 08/05/18 08/06/18 08/06/18 17:59 06:59 18:59 Intake Total Output Total Balance Weight Intake: Intake, IV Titration Amount Vancomycin 1,250 mg In Sodium Chloride 0.9% 250 ml @ 125 mls/hr IVPB Q12H [facility] Rx#:[id number] cefTRIAXone 1 gm In Sodium Chloride 0.9% 50 ml @ 100 mls/hr IVPB ONCE STA Rx#:[id number] Oral Output: Urine Other: Voiding Method Toilet # Voids 2 - Exam PHYSICAL EXAMINATION: GENERAL: The patient is alert and oriented x3, not in any acute distress. Well developed, well nourished. HEENT: Pupils are round and equally reacting to light. EOMI. No scleral icterus. No conjunctival pallor. Normocephalic, atraumatic. No pharyngeal erythema. No thyromegaly. CARDIOVASCULAR: S1 and S2 present. No murmurs, rubs, or gallops. PULMONARY: Chest is clear to auscultation, no wheezing or crackles. ABDOMEN: Soft, nontender, nondistended, normoactive bowel sounds. No palpable organomegaly. MUSCULOSKELETAL: No joint swelling or deformity. EXTREMITIES: No cyanosis, clubbing, patient does have bilateral pitting pedal edema 2+ patient has gangrene of the second toe mostly appears like try gangrene but does have significant false smell with some redness extending proximally into second tarsometatarsal area on the right side. NEUROLOGICAL: Gross neurological examination did not reveal any focal deficits. SKIN: No rashes. - Labs CBC & Chem 7: 08/06/18 07:53 08/06/18 07:53 Labs: Abnormal Lab Results - Last 24 Hours (Table) 08/05/18 08/05/18 08/05/18 Range/Units 11:46 11:50 16:38 RBC (4.30-5.90) m/uL Hgb (13.0-17.5) gm/dL Hct (39.0-53.0) % Sodium (137-145) mmol/L Creatinine (0.66-1.25) mg/dL Glucose (74-99) mg/dL POC Glucose (mg/dL) 158 H 151 H (75-99) mg/dL Magnesium (1.6-2.3) mg/dL Troponin I 0.065 H* (0.000-0.034) ng/mL 08/05/18 08/06/18 08/06/18 Range/Units 22:07 06:48 07:53 RBC (4.30-5.90) m/uL Hgb (13.0-17.5) gm/dL Hct (39.0-53.0) % Sodium 136 L (137-145) mmol/L Creatinine 0.62 L (0.66-1.25) mg/dL Glucose 156 H (74-99) mg/dL POC Glucose (mg/dL) 143 H 181 H (75-99) mg/dL Magnesium 1.4 L (1.6-2.3) mg/dL Troponin I (0.000-0.034) ng/mL 08/06/18 08/06/18 Range/Units 07:53 11:57 RBC 3.74 L (4.30-5.90) m/uL Hgb 11.3 L (13.0-17.5) gm/dL Hct 35.5 L (39.0-53.0) % Sodium (137-145) mmol/L Creatinine (0.66-1.25) mg/dL Glucose (74-99) mg/dL POC Glucose (mg/dL) 167 H (75-99) mg/dL Magnesium (1.6-2.3) mg/dL Troponin I (0.000-0.034) ng/mL Microbiology - Last 24 Hours (Table) 08/04/18 23:14 Blood Culture - Preliminary Blood No Growth after 24 hours Assessment and Plan Plan: -Gangrene with cellulitis. Continue with vancomycin. Troponin elevation is secondary to infection patient will undergo amputation on -Congestive heart failure chronic systolic dysfunction with mild acute exacerbation patient with continued on IV Lasix monitor kidney function, improved now patient appears to be euvolemic and was switched to oral Lasix -Coronary disease with a history of stents in the past patient does have ischemic edema after -Type 2 diabetes mellitus -Benign prostatic hypertrophic -Atrial fibrillation presently rate controlled on Eliquis which will be continued
--- NOTE | 2018-08-06 16:23 | P.CRDCN ---
History of Present Illness Consult date: 08/06/18 History of present illness: This is a 77-year-old gentleman with history of ischemic cardiomyopathy, atrial fibrillation, chronic congestive heart failure and also ACD implantation was admitted to the hospital now with the increasing pedal swelling and gangrenous of the toe. We're asked to see the patient because of abnormal troponin values. The values are not consistent with acute myocardial infarction. Patient is not having any chest pain. He chest x-ray did not show any significant CHF. His proBNP is a chronically elevated. He does have some swelling in the legs and is on IV Lasix. I will continue current medical therapy. We'll follow him as needed Review of Systems As per the chart Past Medical History Past Medical History: Atrial Fibrillation, Asthma, Coronary Artery Disease (CA D), Cancer, Heart Failure, COPD, Diabetes Mellitus, Hearing Disorder / Deafness, Myocardial Infarction (CT), Pneumonia, Prostate Disorder, Rheumatoid Arthritis (RA) Additional Past Medical History / Comment(s): Prostate cancer (2009) with radiation, bronchitis, NIDDM type II, neuropathy bilateral hands and feet, R foot 2nd toe black , gout bilateral elbows, L wrist tendonitis, BPH, [place] bilaterally, vitiligo Last Myocardial Infarction Date:: 2015 History of Any Multi-Drug Resistant Organisms: None Reported Past Surgical History: AICD, Appendectomy, Cholecystectomy, Heart Catheterization With Stent, Joint Replacement, Pacemaker, Tonsillectomy Additional Past Surgical History / Comment(s): PCI with stents 2016, AICD/pacermultiple nasal surgeries for nasal polyps, right hip replacement Past Anesthesia/Blood Transfusion Reactions: No Reported Reaction Date of Last Stent Placement:: 2015 Type of Cardiac Device: Permanent Pacemaker, AICD Device Placement Date:: 2014 Past Psychological History: No Psychological Hx Reported Additional Psychological History / Comment(s): Pt lives alone in 2 story home. has 13 steps to 2nd floor and 4 porch steps. No home care services, has cane/walker,nebulizer. Smoking Status: Former smoker Past Alcohol Use History: Occasional Additional Past Alcohol Use History / Comment(s): Pt started smoking in 11 and quit in 1972. Past Drug Use History: None Reported - Past Family History Mother Family Medical History: No Reported History Brother(s) Additional Family Medical History / Comment(s): tuberculosis in the Father Family Medical History: Myocardial Infarction (CT) Medications and Allergies Home Medications Medication Instructions Recorded Confirmed Type Allopurinol [Zyloprim] 300 mg PO DAILY 05/09/15 08/04/18 History Tamsulosin HCl [Flomax] 0.4 mg PO HS 05/13/15 08/04/18 History Spironolactone [Aldactone] 25 mg PO DAILY #30 tab 05/10/16 08/04/18 Rx metFORMIN HCL [Glucophage] 1,000 mg PO BID #0 05/10/16 08/04/18 Rx Apixaban [Eliquis] 5 mg PO BID #60 tab 07/10/17 08/04/18 Rx Furosemide [Lasix] 40 mg PO BID #60 tablet 03/02/18 08/04/18 Rx Lisinopril [Zestril] 2.5 mg PO DAILY #30 tab 03/02/18 08/04/18 Rx Metoprolol Tartrate [Lopressor] 50 mg PO BID 06/04/18 08/04/18 History Albuterol Nebulized [Ventolin 2.5 mg INHALATION DAILY PRN 08/04/18 08/04/18 History Nebulized] Atorvastatin [Lipitor] 40 mg PO HS 08/04/18 08/04/18 History Fluticasone/Salmeterol [Advair 1 puff INHALATION RT-BID 08/04/18 08/04/18 History 250-50 Diskus] methylPREDNISolone [Medrol] 4 mg PO DAILY 08/04/18 08/04/18 History Allergies Allergy/AdvReac Type Severity Reaction Status Date / Time grapefruit Allergy Unknown Verified 08/04/18 23:13 naproxen Allergy Unknown Verified 08/04/18 23:13 Tetracyclines Allergy Rash/Hives Verified 08/04/18 23:13 aspirin AdvReac was told Verified 08/04/18 23:13 not to take r/t nasal polyps Physical Exam Vitals: Vital Signs Temp Pulse Pulse Resp BP Pulse Ox 08/06/18 15:17 98.2 F 73 12 130/64 08/06/18 14:48 84 14 103/70 08/06/18 08:26 97 08/06/18 07:00 98.4 F 73 12 131/81 95 08/05/18 23:55 99.7 F H 62 20 117/79 93 L Intake and Output 08/06/18 08/06/18 08/06/18 06:59 14:59 22:59 Intake Total Output Total Balance Intake: Oral Output: Urine Other: Voiding Method Toilet Toilet # Voids 2 Weight GENERAL EXAM: Patient is alert and oriented and doesn't appear to be in any acute distress HEENT: Normocephalic. Normal reaction of pupils, equal size, normal range of extraocular motion. No erythema or exudates in the throat. NECK: No masses, no nuchal rigidity. CHEST: No chest wall deformity. LUNGS: Diminished air exchange HEART: S1 and S2 normal. Distant heart sounds ABDOMEN: No hepatosplenomegaly, normal bowel sounds, no guarding or rigidity. SKIN: No rashes CENTRAL NERVOUS SYSTEM: No focal deficits. EXTREMITIES: Edema plus Results 08/06/18 07:53 08/06/18 07:53 CBC 08/06/18 Range/Units 07:53 WBC 9.1 (3.8-10.6) k/uL RBC 3.74 L (4.30-5.90) m/uL Hgb 11.3 L (13.0-17.5) gm/dL Hct 35.5 L (39.0-53.0) % Plt Count 239 (150-450) k/uL Comprehensive Metabolic Panel 08/06/18 Range/Units 07:53 Sodium 136 L (137-145) mmol/L Potassium 3.7 (3.5-5.1) mmol/L Chloride 101 (98-107) mmol/L Carbon Dioxide 28 (22-30) mmol/L BUN 18 (9-20) mg/dL Creatinine 0.62 L (0.66-1.25) mg/dL Glucose 156 H (74-99) mg/dL Calcium 8.6 (8.4-10.2) mg/dL Current Medications Generic Name Dose Route Start Last Admin Trade Name Freq PRN Reason Stop Dose Admin Acetaminophen 650 mg 08/05/18 00:45 Tylenol Tab PO Q6HR PRN Mild Pain or Fever > 100.5 Apixaban 5 mg 08/05/18 09:00 08/06/18 07:37 Eliquis PO 5 mg BID YECENIA Administration Cyclobenzaprine HCl 10 mg 08/05/18 13:25 08/06/18 10:40 Flexeril PO 10 mg Q6H PRN Administration Muscle Spasm Furosemide 40 mg 08/05/18 09:00 08/06/18 07:37 Lasix IV 40 mg Q12HR YECENIA Administration Vancomycin HCl 1,250 mg/ 250 mls @ 125 mls/hr 08/05/18 14:00 08/06/18 13:47 Sodium Chloride IVPB 125 mls/hr Q12H YECENIA Administration Insulin Aspart 0 unit 08/05/18 12:30 08/06/18 12:11 Novolog SQ 2 unit ACHS YECENIA Administration Protocol Lisinopril 2.5 mg 08/05/18 09:00 08/06/18 07:37 Zestril PO 2.5 mg DAILY YECENIA Administration Metoprolol Tartrate 50 mg 08/05/18 09:00 08/06/18 07:37 Lopressor PO 50 mg BID YECENIA Administration Miscellaneous Information 1 each 08/07/18 01:00 Vancomycin Trough Due MISCELLANE 08/07/18 01:01 ONCE ONE Morphine Sulfate 4 mg 08/05/18 00:45 08/06/18 10:40 Morphine Sulfate (Inj) IV 4 mg Q4HR PRN Administration Severe Pain Naloxone HCl 0.2 mg 08/05/18 00:45 Narcan IV Q2M PRN Opioid Reversal Spironolactone 25 mg 08/05/18 09:00 08/06/18 07:37 Aldactone PO 25 mg DAILY YECENIA Administration Tamsulosin HCl 0.4 mg 08/05/18 21:00 08/05/18 20:54 Flomax PO 0.4 mg HS YECENIA Administration Intake and Output 08/06/18 08/06/18 08/06/18 06:59 14:59 22:59 Intake Total Output Total Balance Intake: Oral Output: Urine Other: Voiding Method Toilet Toilet # Voids 2 Weight 08/06/18 07:53 08/06/18 07:53 EKG Interpretations (text) Sinus rhythm with nonspecific ST-T changes. No acute abnormalities Assessment and Plan (1) Chronic systolic (congestive) heart failure Current Visit: Yes Status: Acute Code(s): I50.22 - CHRONIC SYSTOLIC (CONGESTIVE) HEART FAILURE SNOMED Code(s): 026392369 (2) Elevated troponin Current Visit: No Status: Acute Code(s): R74.8 - ABNORMAL LEVELS OF OTHER SERUM ENZYMES SNOMED Code(s): 940400400 (3) Ischemic heart disease Current Visit: Yes Status: Acute Code(s): I25.9 - CHRONIC ISCHEMIC HEART DISEASE, UNSPECIFIED SNOMED Code(s): 324236481 (4) Peripheral vascular disease Current Visit: Yes Status: Acute Code(s): I73.9 - PERIPHERAL VASCULAR DI SEASE, UNSPECIFIED SNOMED Code(s): 078215890 (5) Gangrene of toe Current Visit: Yes Status: Acute Code(s): I96 - GANGRENE, NOT ELSEWHERE CLASSIFIED SNOMED Code(s): 515786676 Plan: Continue current medical therapy. Titrate Lasix dose as needed. No acute evidence of myocardial infarction. We'll be seeing him on an as needed
[2018-08-06 17:11] LABS: Glucose,Whole Blood 130 mg/dL (75-99)
[2018-08-06] MEDS: TAMSULOSIN 0.4 MG CAP.ER.24H PO SCH (19:49)
[2018-08-06 20:53] LABS: Glucose,Whole Blood 231 mg/dL (75-99)
[2018-08-07] MEDS ORDERED: VANCOMYCIN TROUGH DUE 1 EACH MISC MISCELLANE ONE (01:00)
[2018-08-07] MEDS: VANCOMYCIN 1,250 MG in SODIUM CHLORIDE 0.9% 250 ML IVPB SCH ×2 (02:47→13:18)
--- NOTE | 2018-08-07 05:02 | PN ---
PROGRESS NOTE DATE OF SERVICE: 08/06/2018 REASON FOR FOLLOWUP: Right second toe gangrene and cellulitis. INTERVAL HISTORY: The patient is currently afebrile. He has been breathing comfortably. Denies having any chest pain. No cough. No abdominal pain or worsening pain in the right foot area. PHYSICAL EXAMINATION: On examination, blood pressure 122/75 with a pulse of 70, temperature 98.3. He is 95% on 3 L nasal cannula. General description is an elderly male lying in bed in no distress. RESPIRATORY SYSTEM: Unlabored breathing, clear to auscultation anteriorly. HEART: S1, S2. Regular rate and rhythm. ABDOMEN: Soft, no tenderness. Right second with necrotic changes, minimal redness, minimal drainage, foul smelling. LABS: Hemoglobin is 11.3, white count 9.1, BUN of 18, creatinine 0.62. Blood culture negative so far. DIAGNOSTIC IMPRESSION AND PLAN: Patient with right second toe gangrene with secondary cellulitis, possible gram- positive skin ai. Currently covered with vancomycin to continue while monitoring his clinical course closely. Continue with supportive care. MMODL / IJN: [id number] /
[2018-08-07] MEDS: METOPROLOL TARTRATE 50 MG TAB PO SCH ×2 (07:23→21:32)
[2018-08-07] MEDS: SPIRONOLACTONE 25 MG TAB PO SCH (07:23)
[2018-08-07] MEDS: FUROSEMIDE 10 MG/ML 4 ML VIAL IV SCH (07:23)
[2018-08-07] MEDS: LISINOPRIL 2.5 MG TAB PO SCH (07:23)
[2018-08-07] MEDS: INSULIN ASPART (NovoLOG) 100 UNIT/ML VIAL SQ SCH ×4 (07:24→21:31)
[2018-08-07] MEDS: MORPHINE SULFATE 4 MG/ML SYRINGE IV PRN ×2 (07:24→12:11)
[2018-08-07 07:25] LABS: Glucose,Whole Blood 139 mg/dL (75-99)
[2018-08-07] MEDS: APIXABAN 5 MG TAB PO SCH (10:27)
[2018-08-07 11:57] LABS: Glucose,Whole Blood 154 mg/dL (75-99)
--- NOTE | 2018-08-07 12:06 | ECHOF ---
Referral Reason:elevated trops MEASUREMENTS -------- HEIGHT: 157.5 cm WEIGHT: 69.4 kg BP: 106/75 RVIDd: 4.3 cm (< 3.3) IVSd: 1.2 cm (0.6 - 1.1) LVIDd: 5.5 cm (3.9 - 5.3) LVPWd: 1.3 cm (0.6 - 1.1) IVSs: 1.3 cm LVIDs: 5.4 cm LVPWs: 1.4 cm Ao Diam: 3.0 cm (2.0 - 3.7) AV Cusp: 1.2 cm (1.5 - 2.6) LA Diam: 3.7 cm (2.7 - 3.8) MV EXCURSION: 14.013 mm (> 18.000) MV EF SLOPE: 45 mm/s (70 - 150) EPSS: 2.0 cm MV E Mikhail: 0.64 m/s MV DecT: 245 ms MV A Mikhail: 0.67 m/s MV E/A Ratio: 0.95 AV maxP.70 mmHg AV meanP.90 mmHg RAP: 5.00 mmHg RVSP: 9.35 mmHg FINDINGS -------- Sinus rhythm. Pacerwire seen in RV and RA. AICD This was a technically difficult study with suboptimal views. The left ventricular size is normal. There is mild concentric left ventricular hypertrophy. There is severe global hypokinesis of LV . Overall left ventricular systolic function is severely impair ed with, an EF between 20 - 25 %. The right ventricle is severely enlarged. The left atrial size is normal. The right atrial size is normal. Lumason used Aortic valve is trileaflet and is mildly thickened. There is mild aortic stenosis present. Peak/m bere gradient across the Aortic Valve is 29.70mmHg / 17.90mmHg. The mitral valve leaflets are mildly thickened. Mild mitral regurgitation is present. Mild tricuspid regurgitation present. There is no evidence of pulmonary hypertension. The right v entricular systolic pressure, as measured by Doppler, is 9.35mmHg. The pulmonic valve was not well visualized. There is no pulmonic regurgitation present. The aortic root size is normal. IVC Not well visulized. There is no pericardial effusion. CONCLUSIONS -------- 1. Sinus rhythm. 2. Pacerwire seen in RV and RA. 3. AICD 4. This was a technically difficult study with suboptimal views. 5. The left ventricular size is normal. 6. There is mild concentric left ventricular hypertrophy. 7. There is severe global hypokinesis of LV . 8. Overall left ventricular systolic function is severely impaired with, an EF between 20 - 25 %. 9. The right ventricle is severely enlarged. 10. The left atrial size is normal. 11. Lumason used 12. Aortic valve is trileaflet and is mildly thickened. 13. There is mild aortic stenosis present. 14. Peak/mean gradient across the Aortic Valve is 29.70mmHg / 17.90mmHg. 15. The mitral valve leaflets are mildly thickened. 16. Mild mitral regurgitation is present. 17. Mild tricuspid regurgitation present. 18. There is no evidence of pulmonary hypertension. 19. The pulmonic valve was not well visualized. 20. The aortic root size is normal. 21. IVC Not well visulized. 22. There is no pericardial effusion. MARKETING PROPOSAL COORDINATOR: Kylee Kasper RDCS
[2018-08-07] MEDS: CARISOPRODOL 350 MG TAB PO PRN ×2 (13:31→21:39)
--- NOTE | 2018-08-07 14:03 | P.PN ---
Subjective 72-year-old admitted for right second toe gangrene and the secondary cellulitis patient is on vancomycin which will be continued. Patient will undergo amputation procedure on patient meantime wanted to go home. So for blood cultures are negative 08/07/2018 Patient is still having neck rigidity will start him on diazepam patient is alre javier receiving cyclobenzaprine orthotic surgery will be consulted may need a neck x-ray or CAT scan. Continue with hot packs. Continue with IV antibiotics for his gangrene Constitutional: Denied any fatigue denied any fever. Cardio vascular: denied any chest pain, palpitations Gastrointestinal denied any nausea vomiting Pulmonary: Denied any shortness of breath cough Neurologic denied any new focal deficits All inpatient medications were reviewed and appropriate changes in these medications as dictated in the interval history and assessment and plan. Objective - Vital Signs Vital signs: Vital Signs Temp 98.3 F 08/07/18 06:42 Pulse 79 08/07/18 06:42 Resp 18 08/07/18 06:42 BP 127/86 08/07/18 06:42 Pulse Ox 96 08/07/18 12:22 Intake & Output 08/06/18 08/07/18 08/07/18 18:59 06:59 18:59 Weight 69.5 kg Other: Voiding Method Toilet Toilet # Voids 2 1 - Exam PHYSICAL EXAMINATION: GENERAL: The patient is alert and oriented x3, not in any acute distress. Well developed, well nourished. HEENT: Pupils are round and equally reacting to light. EOMI. No scleral icterus. No conjunctival pallor. Normocephalic, atraumatic. No pharyngeal erythema. No thyromegaly. CARDIOVASCULAR: S1 and S2 present. No murmurs, rubs, or gallops. PULMONARY: Chest is clear to auscultation, no wheezing or crackles. ABDOMEN: Soft, nontender, nondistended, normoactive bowel sounds. No palpable organomegaly. MUSCULOSKELETAL: No joint swelling or deformity. EXTREMITIES: No cyanosis, clubbing, patient does have bilateral pitting pedal edema 2+ patient has gangrene of the second toe mostly appears like try gangrene but does have significant false smell with some redness extending proximally into second tarsometatarsal area on the right side. NEUROLOGICAL: Gross neurological examination did not reveal any focal deficits. SKIN: No rashes. - Labs CBC & Chem 7: 08/06/18 07:53 08/06/18 07:53 Labs: Abnormal Lab Results - Last 24 Hours (Table) 08/06/18 08/06/18 08/07/18 Range/Units 17:00 20:51 07:14 POC Glucose (mg/dL) 130 H 231 H 139 H (75-99) mg/dL 08/07/18 Range/Units 11:42 POC Glucose (mg/dL) 154 H (75-99) mg/dL Microbiology - Last 24 Hours (Table) 08/04/18 23:14 Blood Culture - Preliminary Blood No Growth after 48 hours Assessment and Plan Plan: -Gangrene with cellulitis. Continue with vancomycin. Troponin elevation is secondary to infection patient will undergo amputation on -Congestive heart failure chronic systolic dysfunction with mild acute exacerbation patient will be switched to oral Lasix patient's pedal edema significantly improved -Coronary disease with a history of stents in the past patient does have ischemic edema after -Type 2 diabetes mellitus -Benign prostatic hypertrophic -Atrial fibrillation presently rate controlled on Eliquis which will be continued
[2018-08-07] MEDS: MAGNESIUM SULFATE-D5W PMX 1 GM in DEXTROSE/WATER 1 100ML.BAG IVPB SCH ×2 (15:22→16:23)
[2018-08-07] MEDS: FUROSEMIDE 40 MG TAB PO SCH (16:23)
[2018-08-07 17:01] LABS: Glucose,Whole Blood 176 mg/dL (75-99)
[2018-08-07] MEDS: ALBUTEROL NEBULIZED 2.5 MG/3 ML INHALATION PRN (19:42)
[2018-08-07 20:00] LABS: Glucose,Whole Blood 199 mg/dL (75-99)
--- NOTE | 2018-08-07 20:04 | XR ---
EXAMINATION TYPE: XR cervical spine comp DATE OF EXAM: 08/07/2018 TECHNIQUE: Frontal, lateral, oblique, swimmers, and open mouth view of the cervical spine are obtaine d. HISTORY: neck pain COMPARISON: None FINDINGS: The cervical spine is visualized in its entirety from C1 thru the top of T1 level, it is s traightened in alignment without evidence of acute fracture or dislocation. The pre-vertebral soft t issue appears within normal limits. The C1-C2 articulation is within normal limits on the open mouth view. Osseous structures are demineralized which is noted to lower radiographic sensitivity. Vertebr al body heights are maintained. There is mild to moderate disc space narrowing C5-C6 and C6-C7 levels . Oblique images are felt within normal limits. Overlying soft tissue shows partial visualization of pacemaker wires. IMPRESSION: As above.
[2018-08-07] MEDS: TAMSULOSIN 0.4 MG CAP.ER.24H PO SCH (21:32)
--- NOTE | 2018-08-08 00:39 | PN ---
PROGRESS NOTE DATE OF SERVICE: 08/07/2018. REASON FOR FOLLOWUP: Right 2nd toe gangrene with secondary cellulitis. INTERVAL HISTORY: The patient is currently afebrile. Patient has been breathing comfortably. Denies having any chest pain or any cough. No abdominal pain. No worsening pain in the second toe area. Overall redness has decreased. PHYSICAL EXAMINATION: Blood pressure 121/76, pulse of 51, temperature 97.7, he is 93% on room air. GENERAL DESCRIPTION: An elderly male up in the chair in no distress. RESPIRATORY SYSTEM: Unlabored breathing. Clear to auscultation anteriorly. HEART: S1, S2. Regular rate and rhythm. ABDOMEN: Soft, nontender. EXTREMITIES: Right 2nd toe remains to be necrotic, surrounding area slightly decreased. LABS: No new labs been obtained today. Blood culture has been negative. DIAGNOSTIC IMPRESSION AND PLAN: Patient with a right 2nd toe gangrene with secondary cellulitis, for possible amputation of the toe. We will keep the patient on vancomycin and monitor clinical course closely. Continue supportive care. MMODL / IJN: [id number] /
[2018-08-08] MEDS: VANCOMYCIN 1,250 MG in SODIUM CHLORIDE 0.9% 250 ML IVPB SCH ×2 (02:16→12:54)
[2018-08-08] MEDS: ALBUTEROL NEBULIZED 2.5 MG/3 ML INHALATION PRN ×4 (04:16→20:34)
[2018-08-08] MEDS: MORPHINE SULFATE 4 MG/ML SYRINGE IV PRN ×2 (05:39→21:03)
[2018-08-08 07:21] LABS: Glucose,Whole Blood 197 mg/dL (75-99)
[2018-08-08] MEDS: INSULIN ASPART (NovoLOG) 100 UNIT/ML VIAL SQ SCH ×4 (07:34→22:40)
[2018-08-08] MEDS: FUROSEMIDE 40 MG TAB PO SCH ×2 (07:35→15:00)
[2018-08-08] MEDS: LISINOPRIL 2.5 MG TAB PO SCH (07:35)
[2018-08-08] MEDS: SPIRONOLACTONE 25 MG TAB PO SCH (07:35)
[2018-08-08] MEDS: METOPROLOL TARTRATE 50 MG TAB PO SCH ×2 (07:35→20:47)
[2018-08-08] MEDS: CARISOPRODOL 350 MG TAB PO PRN ×2 (07:39→15:00)
--- NOTE | 2018-08-08 09:03 | P.CNOR ---
History of Present Illness - [facility] Consult date: 08/08/18 Consult reason: neck pain History of present illness: This is a 77-year-old male who presented to the emergency department with complaints of bilateral lower extremity swelling and gangrene of the second toe patient has peripheral vascular disease. Patient does have history of asthma atrial fibrillation heart failure does have AICD and his previous ejection fraction was less than 20% patient does have pedal edema patient is on IV Lasix at this time. Chest x-ray currently shows pneumonia and pulmonary edema. Patient was started on vancomycin was subsequently admitted for gangrene of the second toe. The patient was placed on a panel monitor and admission. He states that the cords from the monitor were around the back of his neck which began causing pain to his neck. He states that since his admission his neck is been very painful. He denies any radicular symptoms. He's had no numbness or tingling to the upper extremities. He states that he does not recall neck pain in the past. He denies any trauma or injury. We were consulted for orthopedic spine evaluation of his neck pain. Past Medical History Past Medical History: Atrial Fibrillation, Asthma, Coronary Artery Disease (CAD), Cancer, Heart Failure, COPD, Diabetes Mellitus, Hearing Disorder / D eafness, Myocardial Infarction ([place]), Pneumonia, Prostate Disorder, Rheumatoid Arthritis (RA) Additional Past Medical History / Comment(s): Prostate cancer (2009) with radiation, bronchitis, NIDDM type II, neuropathy bilateral hands and feet, R foot 2nd toe black , gout bilateral elbows, L wrist tendonitis, BPH, MODOC bilaterally, vitiligo Last Myocardial Infarction Date:: 2015 History of Any Multi-Drug Resistant Organisms: None Reported Past Surgical History: AICD, Appendectomy, Cholecystectomy, Heart Catheterization With Stent, Joint Replacement, Pacemaker, Tonsillectomy Additional Past Surgical History / Comment(s): PCI with stents 2016, AICD/pacermultiple nasal surgeries for nasal polyps, right hip replacement Past Anesthesia/Blood Transfusion Reactions: No Reported Reaction Date of Last Stent Placement:: 2015 Type of Cardiac Device: Permanent Pacemaker, AICD Device Placement Date:: 2014 Past Psychological History: No Psychological Hx Reported Additional Psychological History / Comment(s): Pt lives alone in 2 story home. has 13 steps to 2nd floor and 4 porch steps. No home care services, has cane/walker,nebulizer. Smoking Status: Former smoker Past Alcohol Use History: Occasional Additional Past Alcohol Use History / Comment(s): Pt started smoking in 1959 and quit in 1972. Past Drug Use History: None Reported - Past Family History Mother Family Medical History: No Reported History Brother(s) Additional Family Medical History / Comment(s): tuberculosis in the Father Family Medical History: Myocardial Infarction ([place]) Medications and Allergies Home Medications Medication Instructions Recorded Confirmed Type Allopurinol [Zyloprim] 300 mg PO DAILY 05/09/15 08/04/18 History Tamsulosin HCl [Flomax] 0.4 mg PO HS 05/13/15 08/04/18 History Spironolactone [Aldactone] 25 mg PO DAILY #30 tab 05/10/16 08/04/18 Rx metFORMIN HCL [Glucophage] 1,000 mg PO BID #0 05/10/16 08/04/18 Rx Apixaban [Eliquis] 5 mg PO BID #60 tab 07/10/17 08/04/18 Rx Furosemide [Lasix] 40 mg PO BID #60 tablet 03/02/18 08/04/18 Rx Lisinopril [Zestril] 2.5 mg PO DAILY #30 tab 03/02/18 08/04/18 Rx Metoprolol Tartrate [Lopressor] 50 mg PO BID 06/04/18 08/04/18 History Albuterol Nebulized [Ventolin 2.5 mg INHALATION DAILY PRN 08/04/18 08/04/18 History Nebulized] Atorvastatin [Lipitor] 40 mg PO HS 08/04/18 08/04/18 History Fluticasone/Salmeterol [Advair 1 puff INHALATION RT-BID 08/04/18 08/04/18 History 250-50 Diskus] methylPREDNISolone [Medrol] 4 mg PO DAILY 08/04/18 08/04/18 History Allergies Allergy/AdvReac Type Severity Reaction Status Date / Time grapefruit Allergy Unknown Verified 08/04/18 23:13 naproxen Allergy Unknown Verified 08/04/18 23:13 Tetracyclines Allergy Rash/Hives Verified 08/04/18 23:13 aspirin AdvReac was told Verified 08/04/18 23:13 not to take r/t nasal polyps Physical Examination This is a pleasant 77-year-old male in no acute distress. He is alert and oriented at this time. Exam of the head neck reveal no obvious deformity. He has significantly limited cervical rotation secondary to pain. He has difficulty with extension of the neck. Flexion is fairly normal. There is no pain with palpation about the cervical spine or paraspinal musculature. Exam of the upper extremities is unremarkable. He has fairly good shoulder, elbow, wrist and finger motion without difficulty or pain. 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 No obvious neurologic deficits noted to the upper extremities. Exam of the lower extremities reveals no shortening or rotational deformities to the hips. He has fairly good hip and knee motion bilaterally. Exam of the bilateral feet reveals a necrotic second toe is the right foot. There is a distinct, gangrenous odor to the wound. The remaining toes appear fairly normal. Pedal pulses are diminished bilaterally. Results Cervical spine x-rays reveal moderate degenerative changes with disc space narrowing at C5-6 and C6-7. [id number] Foraminal stenosis noted, left worse than right. No acute fractures identified. No subluxations. - Labs Labs: Abnormal Lab Results - Last 24 Hours (Table) 08/06/18 08/07/18 08/07/18 Range/Units 07:53 11:42 16:39 POC Glucose (mg/dL) 154 H 176 H (75-99) mg/dL Hemoglobin A1c 8.0 H (4.0-6.0) % 08/07/18 08/08/18 Range/Units 19:48 07:07 POC Glucose (mg/dL) 199 H 197 H (75-99) mg/dL Hemoglobin A1c (4.0-6.0) % Microbiology - Last 24 Hours (Table) 08/04/18 23:14 Blood Culture - Preliminary Blood No Growth after 72 hours H & H 08/04/18 08/06/18 Range/Units 23:14 07:53 Hgb 12.3 L 11.3 L (13.0-17.5) gm/dL Hct 38.8 L 35.5 L (39.0-53.0) % Coagulation 08/04/18 Range/Units 23:14 INR 1.0 (<1.2) Result Diagrams: 08/06/18 07:53 08/06/18 07:53 Assessment and Plan (1) Degenerative disc disease, cervical Current Visit: Yes Status: Acute Code(s): M50.30 - OTHER CERVICAL DISC DEGENERATION, UNSP CERVICAL REGION SNOMED Code(s): 39430648 (2) Cervical arthritis Current Visit: Yes Status: Acute Code(s): M47.812 - SPONDYLOSIS W/O MYELOPATHY OR RADICULOPATHY, CERVICAL REGION SNOMED Code(s): 354161866 (3) Neck pain without injury Current Visit: Yes Status: Acute Code(s): M54.2 - CERVICALGIA SNOMED Code(s): 03338780 (4) Cellulitis of right foot Current Visit: Yes Status: Acute Code(s): L03.115 - CELLULITIS OF RIGHT LOWER LIMB SNOMED Code(s): 019384238 (5) Congestive heart failure Current Visit: Yes Status: Acute Code(s): I50.9 - HEART FAILURE, UNSPECIFIED SNOMED Code(s): 09545995 (6) Gangrene of toe Current Visit: Yes Status: Acute Code(s): I96 - GANGRENE, NOT ELSEWHERE CLASSIFIED SNOMED Code(s): 878785576 Plan: The clinical and x-ray findings are discussed with the patient. With his acute and ongoing illnesses I would refrain from any steroid or interventional treatment at this time. I recommend soft cervical collar for comfort and moist heat as needed for comfort. I will ask physical therapy to show him some stretching exercises for his cervical spine. He may follow-up in our office as needed.
[2018-08-08 11:52] LABS: Glucose,Whole Blood 165 mg/dL (75-99)
--- NOTE | 2018-08-08 12:37 | PN ---
PROGRESS NOTE DATE OF SERVICE: 08/08/2018 This 77-year-old gentleman who was admitted with right second toe gangrene also had secondary cellulitis. Multiple consultants are following the patient. Dr. Parada is planning percutaneous intervention with possible balloon angioplasty. It this is not working, the patient might have to do invasive bypass prior to the amputation because of the diminished blood supply. Otherwise currently the patient is being monitored. Blood sugars mildly elevated. The patient is also receiving pain medication. Patient is on vancomycin. The patient is also complaining of gouty exacerbation also. PAST MEDICAL HISTORY: Reviewed. REVIEW OF SYSTEMS: CARDIOVASCULAR SYSTEM: No angina. RESPIRATORY SYSTEM: As mentioned earlier. GI: As mentioned earlier. : No dysuria. NERVOUS SYSTEM: As mentioned earlier. MEDICATIONS: Current medications are reviewed and include: 1. Tylenol. 2. [place] 5 mg. 3. Soma. 4. Lasix. 5. Zestril. 6. Lopressor. 7. Narcan. 8. Aldactone. 9. Flomax. 10.Vancomycin. PHYSICAL EXAMINATION: The patient is alert, oriented x3. Pulse 73, blood pressure 105/66, respiration 18, temp 98.1, pulse ox 98%. HEENT: Conjunctivae normal. Otherwise, markedly diminished hearing. CARDIOVASCULAR: S1, S2 muffled. RESPIRATORY: Breath sounds diminished at the bases. A few scattered rhonchi. ABDOMEN: Soft, nontender. LEGS: Right second foot cellulitis. No chest pain. Abdominal otherwise unremarkable diminished hearing. Cardio system S1 no stenosis pressure in the bases. A few scattered rhonchi. ABDOMEN: Soft, nontender. Legs right foot cellulitis, dry gangrene and cellulitis also present. NERVOUS SYSTEM: Minimal neuropathy. LABS: Labs are glucose 197. ASSESSMENT: 1. Right second toe gangrene with acute cellulitis of the right foot. 2. Peripheral vascular disease and peripheral arterial disease. 3. Congestive heart failure with chronic systolic dysfunction with mild acute exacerbation. 4. Coronary artery disease with history of stents. 5. Diabetes mellitus type 2. 6. Benign prostatic hypertrophy. 7. Atrial fibrillation persistent. 8. History of gout. RECOMMENDATIONS AND DISCUSSION: Recommend to continue current medications. Continue with monitoring and symptomatic treatment. Otherwise at this time I would recommend to add Zosyn to the current regimen and I would also recommend [place] and I would also add colchicine on empiric basis and continue to monitor. Guarded prognosis. Will monitor fluid and electrolyte balance closely. Further recommendations to follow. See orders for details. MMODL / IJN: [id number] / MTDD
[2018-08-08] MEDS: COLCHICINE 0.6 MG EACH PO SCH (12:48)
[2018-08-08] MEDS: PIPERACILLIN-TAZOBACTAM 3.375 GM in SODIUM CHLORIDE 0.9% 100 ML IVPB SCH ×2 (12:48→20:47)
[2018-08-08] MEDS: ALLOPURINOL 300 MG TAB PO SCH (12:48)
--- NOTE | 2018-08-08 15:33 | P.PN ---
Subjective This is a pleasant 77-year-old male past medical history significant for ischemic cardiomyopathy status post AICD implantation with [employer] device in 2015, chronic systolic heart failure, paroxysmal atrial fibrillation, COPD, diabetes mellitus and peripheral vascular disease. He follows in the office with Dr. Sánchez. He initially presented to the hospital with symptoms of gangrenous toe and increased pedal swelling. We saw him initially secondary to abnormal troponin. This was deemed not indicative of an acute myocardial infarction. We were asked to see him again secondary to presurgical evaluation for toe amputation. He is seen and examined sitting on the edge of the bed in no acute distress. He complains of neck discomfort. He denies symptoms of chest discomfort suggestive of angina. He denies increased shortness of breath, dizziness or palpitations. He is currently maintained on Atorvastatin 40 mg daily, Lasix 40 mg by mouth twice a day, lisinopril 2.5 mg daily, metoprolol 50 mg twice a day, Aldactone 25 mg daily. Echocardiogram obtained on admission revealed severely impaired left ventricular systolic function with ejection fraction 20-25%, mild aortic stenosis with a mean gradient across the valve of 17 mmHg, mild mitral regurgitation and mild tricuspid regurgitation. Most recently in 2016 he underwent cardiac catheterization revealing a patent stent to the LAD and he underwent successful stent placement to the circumflex artery that time. Laboratory data reviewed, WBC 9.1, hemoglobin 11.3, platelets 239, sodium 136, potassium 3.7, creatinine 0.62. Blood pressure 105/66 heart rate 73 afebrile maintaining oxygen saturation on room air. GENERAL: Well-appearing, well-nourished and in no acute distress. NECK: Supple without JVD or thyromegaly. LUNGS: Faint wheezes. Respiration equal and unlabored. No rales or rhonchi. Diminished bilaterally. HEART: Regular rate and rhythm with systolic ejection murmur at the base,no rubs or gallops. S1 and S2 heard. EXTREMITIES: Normal range of motion, no edema. Right second toe necrotic. ASSESSMENT chronic systolic heart failure, currently euvolemic Abnormal troponin value not indicative of an acute myocardial infarction. Chronically elevated. Cervical strain Paoxysmal atrial fibrillation on shelter anticoagulation Ischemic cardiomyopathy status post AICD implantation History of coronary artery disease status post stent placement Severe peripheral vascular disease Cellulitis of right 2nd toe and gangrene Aortic stenosis COPD Diabetes mellitus PLAN From a cardiac perspective the patient is free of symptoms of angina and is clinically euvolemic. He is a moderate to high risk surgical candidate due to his multiple comorbid conditions. We recommend cautious fluid administration intraoperatively as well as optimal blood pressure control. There is no absolute contraindication to surgery at this time. Eliquis has been held and should be resumed as soon as possible post-operatively. Nurse Practitioner note has been reviewed, I agree with a documented findings and plan of care. Patient was seen and examined. Objective - Vital Signs Vital signs: Vital Signs Temp 98.1 F 08/08/18 07:04 Pulse 88 08/08/18 09:15 Resp 18 08/08/18 07:04 BP 105/66 08/08/18 07:04 Pulse Ox 92 L 08/08/18 07:04 Intake & Output 08/07/18 08/08/18 08/08/18 18:59 06:59 18:59 Intake Total 1200 Balance 1200 Intake: Oral 1200 Other: # Voids 1 - Labs CBC & Chem 7: 08/06/18 07:53 08/06/18 07:53 Labs: Abnormal Lab Results - Last 24 Hours (Table) 08/06/18 08/07/18 08/07/18 Range/Units 07:53 16:39 19:48 POC Glucose (mg/dL) 176 H 199 H (75-99) mg/dL Hemoglobin A1c 8.0 H (4.0-6.0) % 08/08/18 08/08/18 Range/Units 07:07 11:24 POC Glucose (mg/dL) 197 H 165 H (75-99) mg/dL Hemoglobin A1c (4.0-6.0) % Microbiology - Last 24 Hours (Table) 08/04/18 23:14 Blood Culture - Preliminary Blood No Growth after 72 hours
[2018-08-08 16:58] LABS: Glucose,Whole Blood 241 mg/dL (75-99)
[2018-08-08] MEDS: SYMBICORT 80-4.5 MCG INHALER INHALATION SCH (20:34)
[2018-08-08] MEDS: ATORVASTATIN 40 MG TAB PO SCH (20:47)
[2018-08-08] MEDS: TAMSULOSIN 0.4 MG CAP.ER.24H PO SCH (20:47)
[2018-08-08 22:19] LABS: Glucose,Whole Blood 179 mg/dL (75-99)
--- NOTE | 2018-08-08 23:19 | PN ---
PROGRESS NOTE DATE OF SERVICE: 08/08/2018. REASON FOR FOLLOW UP: Right second toe gangrenous cellulitis. INTERVAL HISTORY: The patient is currently afebrile. The patient is breathing comfortably. Denies any chest pain or any cough, abdominal pain or any worsening pain to the right second toe. EXAMINATION: Blood pressure 122/74 with a pulse of 56, temperature 98.7. He is 92% on room air. General description is an elderly male lying in bed in no distress. Respiratory system: Unlabored breathing, clear to auscultation anteriorly. Heart S1-S2 regular rate and rhythm. Abdomen soft, no tenderness. Right second toe swelling persists. Redness has improved. LABS: No new labs have been obtained today. DIAGNOSTIC IMPRESSION AND PLAN: Patient with right second toe gangrenous secondary cellulitis. The patient apparently scheduled for a right second toe amputation on . To continue with vancomycin while monitoring his clinical course closely. Continue supportive care. MMODL / IJN: [id number] /
[2018-08-09] MEDS: VANCOMYCIN 1,250 MG in SODIUM CHLORIDE 0.9% 250 ML IVPB SCH ×2 (02:51→17:16)
[2018-08-09] MEDS: PIPERACILLIN-TAZOBACTAM 3.375 GM in SODIUM CHLORIDE 0.9% 100 ML IVPB SCH ×3 (04:14→21:32)
[2018-08-09 07:18] LABS: Glucose,Whole Blood 199 mg/dL (75-99)
[2018-08-09] MEDS: SYMBICORT 80-4.5 MCG INHALER INHALATION SCH ×2 (07:36→21:59)
[2018-08-09] MEDS: ALBUTEROL NEBULIZED 2.5 MG/3 ML INHALATION PRN (07:37)
[2018-08-09 08:29] LABS: Basophils % (A) 0 %; Eosinophils # (A) 0.1 k/uL (0-0.7); Eosinophils % (A) 2 %; HCT 31.7 % (39.0-53.0); HGB 10.3 gm/dL (13.0-17.5); Lymphocytes # (A) 0.5 k/uL (1.0-4.8); Lymphocytes % (A) 8 %; MCH 30.4 pg (25.0-35.0); MCHC 32.4 g/dL (31.0-37.0); MCV 93.7 fL (80.0-100.0); Mean Platelet Volume 6.8; Monocytes # (A) 0.6 k/uL (0-1.0); Monocytes % (A) 9 %; Neutrophils # (A) 5.4 k/uL (1.3-7.7); Neutrophils % (A) 78 %; Platelet Count 196 k/uL (150-450); RBC 3.39 m/uL (4.30-5.90); RDW 14.7 % (11.5-15.5)
[2018-08-09 08:37] LABS: Anion Gap 9 mmol/L; Blood Urea Nitrogen 16 mg/dL (9-20); Calcium 8.5 mg/dL (8.4-10.2); Carbon Dioxide 25 mmol/L (22-30); Chloride 103 mmol/L (98-107); Glucose 181 mg/dL (74-99); Potassium 3.3 mmol/L (3.5-5.1); Sodium 137 mmol/L (137-145)
[2018-08-09] MEDS: LISINOPRIL 2.5 MG TAB PO SCH (08:48)
[2018-08-09] MEDS: METOPROLOL TARTRATE 50 MG TAB PO SCH ×2 (08:48→21:33)
[2018-08-09] MEDS: FUROSEMIDE 40 MG TAB PO SCH ×2 (08:48→17:46)
[2018-08-09] MEDS: ALLOPURINOL 300 MG TAB PO SCH (08:49)
[2018-08-09] MEDS: SPIRONOLACTONE 25 MG TAB PO SCH (08:49)
[2018-08-09] MEDS: COLCHICINE 0.6 MG EACH PO SCH (08:49)
[2018-08-09] MEDS: INSULIN ASPART (NovoLOG) 100 UNIT/ML VIAL SQ SCH ×4 (08:49→21:45)
[2018-08-09] MEDS ORDERED: Potassium Replacement Protocol 1 EACH MISC MISCELLANE PRN ×2 (10:27→17:03)
[2018-08-09] MEDS ORDERED: Magnesium Replacement Protocol 1 EACH MISC MISCELLANE PRN (10:28)
[2018-08-09] MEDS ORDERED: MIDAZOLAM 2 MG/2 ML VIAL IV ONE ×2 (11:54→12:13)
[2018-08-09] MEDS ORDERED: LIDOCAINE 1% INJ 10MG/ML (20 ML MDV) SQ ONE (11:56)
[2018-08-09] MEDS ORDERED: SODIUM CHLORIDE 0.9% 500 ML 500 ML IV ONE ×2 (11:59→14:16)
[2018-08-09] MEDS ORDERED: fentaNYL (PF) 50 MCG/ML 2 ML AMP IV ONE (12:20)
[2018-08-09] MEDS ORDERED: HEPARIN SODIUM 1,000 UN/ML (10ML VL) IV ONE (12:39)
[2018-08-09] MEDS ORDERED: VANCOMYCIN TROUGH DUE 1 EACH MISC MISCELLANE ONE (13:00)
[2018-08-09] MEDS ORDERED: IOPAMIDOL-250 100ML BTL INTRAARTER ONE (13:14)
[2018-08-09] MEDS ORDERED: IOPAMIDOL-250 50ML BTL IV ONE (13:15)
[2018-08-09] MEDS: HYDROcodone/APAP 5-325MG 1 EACH TAB PO PRN ×2 (13:45→17:15)
--- NOTE | 2018-08-09 13:46 | P.PN ---
Subjective Progress Note Date: 08/09/18 Progress note being dictated for Dr. Gale Interval history: This is a 77-year-old gentleman admitted with right second toe gangrene with secondary cellulitis. Scheduled for angiogram today and possible amputation pending results as per vascular surgery. T-max 99.4. Potassium 3.3, magnesium 1.5. Maintained on vancomycin and Zosyn. Sitting up in chair, pain currently controlled, denies increased pain of affected extremity. Denies chest pain, palpitations. Objective - Vital Signs Vital signs: Vital Signs Temp 99.4 F 08/09/18 07:00 Pulse 80 08/09/18 07:48 Resp 18 08/09/18 07:00 BP 127/81 08/09/18 07:00 Pulse Ox 92 L 08/09/18 07:00 Intake & Output 08/08/18 08/09/18 08/09/18 18:59 06:59 18:59 Intake Total 540 400 300 Balance 540 400 300 Weight 70.1 kg Intake: IV 300 Oral 540 400 Other: # Voids 2 1 - Exam PHYSICAL EXAM: VITAL SIGNS: As above GENERAL: Sitting up in chair, no acute distress, mild anxiety HEENT: Conjunctivae normal. eyes normal. Oral mucosa dry NECK: No JVD. No thyroid enlargement. No LNs CARDIOVASCULAR: S1, S2 muffled. No murmur RESPIRATION: Breath sounds diminished in the bases. Bilateral Expiratory wh eezing.No rhonchi or crackles. ABDOMEN: Soft, nontender . No guarding. no masses palpable.Bowel sounds heard. PSYCHIATRY: Alert and oriented -3, mood and affect normal. NERVOUS SYSTEM: Cranial N 2-12 grossly normal. Moves all 4 limbs. Diffuse weakness. No focal deficits. Minimal neuropathy Skin: Right second toe foot cellulitis, swelling with redness. - Labs CBC & Chem 7: 08/09/18 07:21 08/09/18 07:21 Labs: Abnormal Lab Results - Last 24 Hours (Table) 08/08/18 08/08/18 08/09/18 Range/Units 16:49 22:13 07:04 RBC (4.30-5.90) m/uL Hgb (13.0-17.5) gm/dL Hct (39.0-53.0) % Lymphocytes # (1.0-4.8) k/uL Potassium (3.5-5.1) mmol/L Glucose (74-99) mg/dL POC Glucose (mg/dL) 241 H 179 H 199 H (75-99) mg/dL Magnesium (1.6-2.3) mg/dL 08/09/18 08/09/18 08/09/18 Range/Units 07:21 07:21 07:21 RBC 3.39 L (4.30-5.90) m/uL Hgb 10.3 L (13.0-17.5) gm/dL Hct 31.7 L (39.0-53.0) % Lymphocytes # 0.5 L (1.0-4.8) k/uL Potassium 3.3 L (3.5-5.1) mmol/L Glucose 181 H (74-99) mg/dL POC Glucose (mg/dL) (75-99) mg/dL Magnesium 1.5 L (1.6-2.3) mg/dL Microbiology - Last 24 Hours (Table) 08/04/18 23:14 Blood Culture - Preliminary Blood No Growth after 96 hours Assessment and Plan Assessment: -Right second toe gangrene with acute cellulitis of the right foot -Peripheral vascular disease ,peripheral arterial disease -Mild acute on chronic congestive heart failure, systolic dysfunction -CAD with history of stent -Diabetes mellitus type 2 -Benign prostatic hypertrophy -Chronic persistent atrial fibrillation -History of gout -Hypomagnesemia -Hypokalemia Plan: Continue on current medication regime ,monitoring and symptomatic treatment. Nebulized bronchodilators scheduled and prn. Potassium and magnesium supplements ordered. Close monitoring of electrolytes with repeat labs ordered for a.m. Angiogram pending, possible amputation as mentioned above. Antibiotics as per infectious disease. The impression and plan of care has been dictated as directed. : I performed a history and examination of this patient, discussed the same with the dictator. I agree with the dictator's note ,documented as a scribe. Any additional findings or plans will be noted.
[2018-08-09 13:47] LABS: Glucose,Whole Blood 175 mg/dL (75-99)
--- NOTE | 2018-08-09 14:26 | P.OP ---
Date of Procedure: 08/09/18 Preoperative Diagnosis: right lower extremity critical limb ischemia with 2nd toe dry gangrene Postoperative Diagnosis: Right lower extremity critical limb ischemia with 2nd toe gangrene Right anterior tibial, posterior tibial artery occlusion with no flow distal to the ankle Procedure(s) Performed: Right lower extremity selective femoral-tibial artery angiogram with attempt at revascularization Ultrasound guided left femoral artery access Anesthesia: local, other (moderate sedation x 72 mins) Surgeon: Chucho Parada Estimated Blood Loss (ml): 5 Condition: stable Disposition: floor Indications for Procedure: 77 year old male with history of right lower extremity severe pain with ambulation and at rest. He has a second toe dry gangrene which was seen in the office and since that time he has been admitted to the hospital for congestive heart failure as well as cellulitis of his right foot. He recently underwent angiogram which visualized the vessels below the knee. He presents today for angiogram with possible intervention of his tibial vessels to improve blood flow to his toe. Operative Findings: Patent iliac, femoral, SFA and popliteal artery on the right with the peroneal artery extending to the ankle. The anterior tibial and posterior tibial arteries are occluded just after the takeoff without any collateralization. No flow from the ankle extending to the toes. Description of Procedure: After written informed consent was obtained the patient all risks benefits and competitions were described the patient is brought to the [facility] and laid in a supine position. The area of the groins were prepped and draped in usual sterile fashion. Moderate sedation was then performed with Versed and fentanyl with continuous EKG and O2 sat monitoring. Utilizing ultrasound and Seldinger technique a 5-Portuguese sheath was placed in the left femoral artery. 035 Glidewire was then placed followed by a pigtail catheter and aortogram was obtained. At that time the right common iliac was accessed with a rim catheter and Glidewire was placed into the right common femoral artery. This was exchanged for a Glidewire advantage wire and a 6-Portuguese up and over sheath was then placed in normal fashion. Selective right lower extremity angiogram was then obtained demonstrating good flow through the superficial femoral artery with small area of stenosis at the midportion. The popliteal artery was patent and the anterior tibial artery was occluded just after takeoff as well as the posterior tibial artery. At that time a quick cross catheter was placed over the ovary 5 Glidewire just proximal to the takeoff of the anterior tibial artery. Utilizing multiple wires including and a [place] 014 wire I was unable to access into the posterior tibial or anterior tibial artery. Selective angina gram was once again obtained at the foot demonstrating no distal flow or collateralization to the toes. All guidewires and catheters were then removed as well as the sheath and pressure was placed for hemostasis. Hemostasis was assured and the patient was sent back to his room for recovery. Patient will need a below-knee amputation likely later this week.
--- NOTE | 2018-08-09 15:31 | IR ---
EXAMINATION TYPE: IR angio abdominal w runoff DATE OF EXAM: 08/09/2018 CLINICAL HISTORY: Peripheral vascular disease. TECHNIQUE: Fluoroscopy. COMPARISON: None. FINDINGS: Fluoroscopic guidance was provided during abdominal angiogram with lower extremity runoff procedure performed by Dr. Adrian. A total of 24.4 minutes of fluoroscopic time was utilized during th e procedure and 0 spot images are saved to PACS. IMPRESSION: As Above.
[2018-08-09] MEDS: IPRATROPIUM-ALBUTEROL 3 ML NEB INHALATION SCH ×2 (16:16→21:59)
[2018-08-09 17:04] LABS: Glucose,Whole Blood 162 mg/dL (75-99)
[2018-08-09] MEDS: MAGNESIUM SULFATE-D5W PMX 1 GM in DEXTROSE/WATER 1 100ML.BAG IVPB SCH ×2 (18:21→19:32)
[2018-08-09] MEDS: POTASSIUM CHLORIDE ER 20 MEQ TAB.ER PO SCH ×2 (18:21→19:31)
[2018-08-09] MEDS: MORPHINE SULFATE 4 MG/ML SYRINGE IV PRN (19:37)
[2018-08-09 20:47] LABS: Glucose,Whole Blood 187 mg/dL (75-99)
[2018-08-09] MEDS: TAMSULOSIN 0.4 MG CAP.ER.24H PO SCH (21:33)
[2018-08-09] MEDS: ATORVASTATIN 40 MG TAB PO SCH (21:33)
[2018-08-09 21:44] LABS: Glucose,Whole Blood 186 mg/dL (75-99)
[2018-08-10] MEDS: VANCOMYCIN 1,250 MG in SODIUM CHLORIDE 0.9% 250 ML IVPB SCH ×2 (01:25→15:01)
[2018-08-10] MEDS: HYDROcodone/APAP 5-325MG 1 EACH TAB PO PRN (01:28)
[2018-08-10] MEDS: IPRATROPIUM-ALBUTEROL 3 ML NEB INHALATION PRN ×2 (01:41→11:39)
[2018-08-10] MEDS: PIPERACILLIN-TAZOBACTAM 3.375 GM in SODIUM CHLORIDE 0.9% 100 ML IVPB SCH ×2 (05:53→12:26)
[2018-08-10 05:57] LABS: Glucose,Whole Blood 186 mg/dL (75-99)
[2018-08-10] MEDS: INSULIN ASPART (NovoLOG) 100 UNIT/ML VIAL SQ SCH ×4 (06:39→23:07)
[2018-08-10 06:57] LABS: Basophils % (A) 0 %; Eosinophils # (A) 0.2 k/uL (0-0.7); Eosinophils % (A) 2 %; HGB 9.8 gm/dL (13.0-17.5); Lymphocytes # (A) 0.6 k/uL (1.0-4.8); Lymphocytes % (A) 8 %; MCH 29.8 pg (25.0-35.0); MCHC 31.6 g/dL (31.0-37.0); MCV 94.5 fL (80.0-100.0); Mean Platelet Volume 6.6; Monocytes # (A) 0.5 k/uL (0-1.0); Monocytes % (A) 8 %; Neutrophils # (A) 5.6 k/uL (1.3-7.7); Neutrophils % (A) 78 %; Platelet Count 219 k/uL (150-450); RBC 3.29 m/uL (4.30-5.90); RDW 14.7 % (11.5-15.5); WBC 7.1 k/uL (3.8-10.6)
[2018-08-10] MEDS: METOPROLOL TARTRATE 50 MG TAB PO SCH ×2 (08:33→20:31)
[2018-08-10] MEDS: FUROSEMIDE 40 MG TAB PO SCH ×2 (08:33→17:04)
[2018-08-10] MEDS: ALLOPURINOL 300 MG TAB PO SCH (08:33)
[2018-08-10] MEDS: SPIRONOLACTONE 25 MG TAB PO SCH (08:33)
[2018-08-10] MEDS: LISINOPRIL 2.5 MG TAB PO SCH (08:33)
[2018-08-10] MEDS: COLCHICINE 0.6 MG EACH PO SCH (08:34)
[2018-08-10] MEDS: IPRATROPIUM-ALBUTEROL 3 ML NEB INHALATION SCH ×4 (08:40→19:49)
[2018-08-10] MEDS: SYMBICORT 80-4.5 MCG INHALER INHALATION SCH ×2 (08:40→19:49)
[2018-08-10] MEDS ORDERED: TEMAZEPAM 15 MG CAP PO PRN (11:13)
[2018-08-10] MEDS ORDERED: ALPRAZolam 0.25 MG TAB PO PRN (11:13)
--- NOTE | 2018-08-10 11:39 | P.PN ---
Subjective Progress Note Date: 08/10/18 This 77-year-old gentleman with history of ischemic cardiomyopathy, previous stent placement and chronic congestive heart failure was admitted to the hospital with gangrenous changes of the toe. Patient had an angiogram done by [facility] with attempts for revascularization, which was unsuccessful. He is sl ated to have amputation tomorrow. Patient is chronically short of breath but doesn't seem to be an acutely short of breath at this time. Doesn't complain of any chest pain. He does complain of a body pains. It was felt that patient will be moderate to high risk for the surgery. At this point we'll continue current medical therapy. I will also obtain a BMP level to assess his BUN/creatinine. Objective - Vital Signs Vital signs: Vital Signs Temp 99.1 F 08/10/18 08:00 Pulse 80 08/10/18 08:55 Resp 20 08/10/18 08:00 BP 131/78 08/10/18 08:00 Pulse Ox 92 L 08/10/18 08:40 Intake & Output 08/09/18 08/10/18 08/10/18 18:59 06:59 18:59 Intake Total 400 Output Total 400 1250 350 Balance 0 -1250 -350 Intake: IV 300 Oral 100 Output: Urine 400 1250 350 Other: # Voids 0 - Exam GENERAL EXAM: Patient is alert and oriented and doesn't appear to be in any acute distress HEENT: Normocephalic. Normal reaction of pupils, equal size, normal range of extraocular motion. No erythema or exudates in the throat. NECK: No masses, no nuchal rigidity. CHEST: No chest wall deformity. LUNGS: Decreased decreased air exchange HEART: S1 and S2 normal ABDOMEN: No hepatosplenomegaly, normal bowel sounds, no guarding or rigidity. SKIN: No rashes CENTRAL NERVOUS SYSTEM: No focal deficits. EXTREMITIES: No cyanosis, clubbing or edema. - Labs CBC & Chem 7: 08/10/18 06:29 08/09/18 07:21 Labs: Abnormal Lab Results - Last 24 Hours (Table) 08/09/18 08/09/18 08/09/18 Range/Units 13:45 17:01 20:46 RBC (4.30-5.90) m/uL Hgb (13.0-17.5) gm/dL Hct (39.0-53.0) % Lymphocytes # (1.0-4.8) k/uL POC Glucose (mg/dL) 175 H 162 H 187 H (75-99) mg/dL 08/09/18 08/10/18 08/10/18 Range/Units 21:39 05:53 06:29 RBC 3.29 L (4.30-5.90) m/uL Hgb 9.8 L (13.0-17.5) gm/dL Hct 31.0 L (39.0-53.0) % Lymphocytes # 0.6 L (1.0-4.8) k/uL POC Glucose (mg/dL) 186 H 186 H (75-99) mg/dL Microbiology - Last 24 Hours (Table) 08/04/18 23:14 Blood Culture - Preliminary Blood No Growth after 120 hours Assessment and Plan (1) Chronic systolic (congestive) heart failure Current Visit: Yes Status: Acute Code(s): I50.22 - CHRONIC SYSTOLIC (CONGESTIVE) HEART FAILURE SNOMED Code(s): 241608360 (2) Elevated troponin Current Visit: No Status: Acute Code(s): R74.8 - ABNORMAL LEVELS OF OTHER SERUM ENZYMES SNOMED Code(s): 727076059 (3) Ischemic heart disease Current Visit: Yes Status: Acute Code(s): I25.9 - CHRONIC ISCHEMIC HEART DISEASE, UNSPECIFIED SNOMED Code(s): 702688026 (4) Peripheral vascular disease Current Visit: Yes Status: Acute Code(s): I73.9 - PERIPHERAL VASCULAR DISEASE, UNSPECIFIED SNOMED Code(s): 151465630 (5) Gangrene of toe Current Visit: Yes Status: Acute Code(s): I96 - GANGRENE, NOT ELSEWHERE CLASSIFIED SNOMED Code(s): 349825745 Plan: Patient is clinically stable except complaining of generalized body pains. Denies any change in his breathing. Denies any chest pain. We are trying to get blood work included a BMP. Is scheduled for surgery tomorrow. His risk for surgery is a moderate to high.
--- NOTE | 2018-08-10 11:42 | P.PN ---
Subjective Progress Note Date: 08/10/18 Progress note being dictated for Dr. Gale Interval history: This is a 77-year-old gentleman admitted with right second toe gangrene with secondary cellulitis. Scheduled for angiogram today and possible amputation pending results as per vascular surgery. T-max 99.4. Potassium 3.3, magnesium 1.5. Maintained on vancomycin and Zosyn. Sitting up in chair, pain currently controlled, denies increased pain of affected extremity. Denies chest pain, palpitations. 08/10/2018 status post angiogram reporting occluded anterior tibial and posterior tibial arteries just after the takeoff without collateralization, no flow from the ankle extending to the toes. Vascular surgery recommending below- knee amputation. Tolerated procedure well. Denies chest pain, palpitations or increased shortness of breath. Maintained on IV antibiotics. T-max 99.1, normal WBC. Received potassium and magnesium supplements yesterday, magnesium 1.7, BMP pending. Objective - Vital Signs Vital signs: Vital Signs Temp 99.1 F 08/10/18 08:00 Pulse 80 08/10/18 08:55 Resp 20 08/10/18 08:00 BP 131/78 08/10/18 08:00 Pulse Ox 92 L 08/10/18 08:40 Intake & Output 08/09/18 08/10/18 08/10/18 18:59 06:59 18:59 Intake Total 400 Output Total 400 1250 Balance 0 -1250 Intake: IV 300 Oral 100 Output: Urine 400 1250 Other: # Voids 0 - Exam PHYSICAL EXAM: VITAL SIGNS: As above GENERAL: Lying in bed, no acute distress HEENT: Conjunctivae normal. eyes normal. Oral mucosa dry NECK: No JVD. No thyroid enlargement. No LNs CARDIOVASCULAR: S1, S2 muffled. No murmur RESPIRATION: Breath sounds diminished in the bases. Occasional minimal bilateral expiratory wheeze .No rhonchi or crackles. ABDOMEN: Soft, nontender . No guarding. no masses palpable.Bowel sounds heard. PSYCHIATRY: Alert and oriented -3, mood and affect normal. NERVOUS SYSTEM: Cranial N 2-12 grossly normal. Moves all 4 limbs. Diffuse weakness. No focal deficits. Minimal neuropathy. Right popliteal DP and PT pulses absent. Skin: Right second toe foot cellulitis, swelling with redness. - Labs CBC & Chem 7: 08/10/18 06:29 03/13/19 07:21 Labs: Abnormal Lab Results - Last 24 Hours (Table) 08/09/18 08/09/18 08/09/18 Range/Units 07:21 13:45 17:01 RBC (4.30-5.90) m/uL Hgb (13.0-17.5) gm/dL Hct (39.0-53.0) % Lymphocytes # (1.0-4.8) k/uL POC Glucose (mg/dL) 175 H 162 H (75-99) mg/dL Magnesium 1.5 L (1.6-2.3) mg/dL 08/09/18 08/09/18 08/10/18 Range/Units 20:46 21:39 05:53 RBC (4.30-5.90) m/uL Hgb (13.0-17.5) gm/dL Hct (39.0-53.0) % Lymphocytes # (1.0-4.8) k/uL POC Glucose (mg/dL) 187 H 186 H 186 H (75-99) mg/dL Magnesium (1.6-2.3) mg/dL 08/10/18 Range/Units 06:29 RBC 3.29 L (4.30-5.90) m/uL Hgb 9.8 L (13.0-17.5) gm/dL Hct 31.0 L (39.0-53.0) % Lymphocytes # 0.6 L (1.0-4.8) k/uL POC Glucose (mg/dL) (75-99) mg/dL Magnesium (1.6-2.3) mg/dL Microbiology - Last 24 Hours (Table) 08/04/18 23:14 Blood Culture - Preliminary Blood No Growth after 120 hours Assessment and Plan Assessment: -Right second toe gangrene with acute cellulitis of the right foot. Status post angiogram reporting right lower extremity critical limb ischemia with second toe gangrene. Right anterior tibial, posterior tibial artery occlusion with no flow distal to the ankle. -Peripheral vascular disease ,peripheral arterial disease -Mild acute on chronic congestive heart failure, systolic dysfunction -CAD with history of stent -Diabetes mellitus type 2 -Benign prostatic hypertrophy -Chronic persistent atrial fibrillation -History of gout -Hypomagnesemia -Hypokalemia Plan: Continue on current medication regime ,monitoring and symptomatic treatment. BKA recommended as per vascular surgery, schedule pending. Maintained Nebulized bronchodilators, antibiotics as per infectious disease.BMP pending. The impression and plan of care has been dictated as directed. : I performed a history and examination of this patient, discussed the same with the dictator. I agree with the dictator's note ,documented as a scribe. Any additional findings or plans will be noted.
[2018-08-10 12:04] LABS: Anion Gap 8 mmol/L; Blood Urea Nitrogen 14 mg/dL (9-20); Calcium 8.6 mg/dL (8.4-10.2); Carbon Dioxide 26 mmol/L (22-30); Chloride 104 mmol/L (98-107); Glucose 168 mg/dL (74-99); Potassium 3.7 mmol/L (3.5-5.1); Sodium 138 mmol/L (137-145)
[2018-08-10 12:09] LABS: Glucose,Whole Blood 180 mg/dL (75-99)
--- NOTE | 2018-08-10 15:00 | PN ---
PROGRESS NOTE DATE OF SERVICE: 08/10/2018 REASON FOR FOLLOW UP: Right second toe gangrenous cellulitis. INTERVAL HISTORY: The patient was seen on rounds this morning. The patient has been afebrile, has been complaining of some pain, postprocedure. Angiogram yesterday. Patient denies having any chest pain or shortness of breath. No cough, no abdominal pain, no diarrhea. PHYSICAL EXAMINATION: Blood pressure 128/77, pulse of 72, temperature 98, he is 92% on room air. General description is an elderly male, lying in bed in no distress. RESPIRATORY SYSTEM: Unlabored breathing, clear to auscultation anteriorly. HEART: S1, S2. Regular rate and rhythm. ABDOMEN: Soft, no tenderness. Right second toe remains to be gangrenous. LABS: Hemoglobin 9.1, white count of 7.1. BUN of 14, creatinine 0.92. DIAGNOSTIC IMPRESSION AND PLAN: Patient with right second toe gangrene with secondary cellulitis. The patient at this time will continue with vancomycin. No need for any gram-negative coverage at this point for possible right [id number] amputation tomorrow. Continue supportive care. MMODL / IJN: [id number] /
[2018-08-10 16:28] LABS: Glucose,Whole Blood 236 mg/dL (75-99)
[2018-08-10] MEDS: ATORVASTATIN 40 MG TAB PO SCH (20:31)
[2018-08-10] MEDS: TAMSULOSIN 0.4 MG CAP.ER.24H PO SCH (20:31)
[2018-08-10] MEDS: CARISOPRODOL 350 MG TAB PO PRN (20:39)
[2018-08-10 20:44] LABS: Glucose,Whole Blood 345 mg/dL (75-99)
[2018-08-11 01:23] LABS: Glucose,Whole Blood 124 mg/dL (75-99)
[2018-08-11] MEDS: VANCOMYCIN 1,250 MG in SODIUM CHLORIDE 0.9% 250 ML IVPB SCH ×2 (05:00→20:55)
[2018-08-11] MEDS: IPRATROPIUM-ALBUTEROL 3 ML NEB INHALATION PRN (05:22)
[2018-08-11 05:47] LABS: Glucose,Whole Blood 183 mg/dL (75-99)
[2018-08-11] MEDS ORDERED: LACTATED RINGERS 1,000 ML IV ONE (06:27)
[2018-08-11 06:29] LABS: Glucose,Whole Blood 163 mg/dL (75-99)
[2018-08-11] MEDS ORDERED: fentaNYL (PF) 50 MCG/ML 2 ML AMP ONE (07:06)
[2018-08-11] MEDS ORDERED: ETOMIDATE 2 MG/ML 10 ML VIAL ONE (07:06)
[2018-08-11] MEDS ORDERED: SUCCINYLCHOLINE CHLORIDE 100 MG/5 ML SYR IV ONE (07:06)
[2018-08-11] MEDS ORDERED: PHENYLEPHRINE-0.9% NACL SYG 1 MG/10 ML SYRINGE ONE (07:06)
[2018-08-11] MEDS ORDERED: MIDAZOLAM 2 MG/2 ML VIAL ONE (07:06)
[2018-08-11] MEDS ORDERED: LIDOCAINE 1% INJ 10MG/ML (20 ML MDV) ONE (07:06)
[2018-08-11] MEDS ORDERED: HYDROmorphone 2 MG/ML 1 ML SYRINGE IVP ONE (09:14)
[2018-08-11] MEDS ORDERED: HYDROmorphone 1 MG/ML 1 ML SYRINGE IVP ONE ×2 (09:20→10:04)
--- NOTE | 2018-08-11 09:24 | P.OP ---
Date of Procedure: 08/11/18 Preoperative Diagnosis: right lower extremity critical limb ischemia with toe gangrene and tibial artery occlusions Postoperative Diagnosis: same Procedure(s) Performed: right below knee amputation Anesthesia: EMANIA Surgeon: Chucho Parada Estimated Blood Loss (ml): 100 Pathology: other (right lower leg and foot) Condition: stable Disposition: PACU Indications for Procedure: 77 yo male with right lower extremity critical limb ischemia, chronic lower extremity pain with walking and at rest along with 2nd toe ulcer with right anterior tibial and posterior tibial artery occlusion without any flow to the foot. Due to the severe atherosclerotic disease as well as diminished flow to the foot there is no indication for bypass secondary to likely failure due to outflow disease. Because of this I did discuss with the family as well as the patient the need for below-knee amputation which they are in complete agreement. Operative Findings: Gaitan appearing musculature at the distal aspect of the amputation with hardened vessels throughout. Description of Procedure: After written informed consent was obtained the patient all risks benefits and competitions were described the patient is brought to the operative suite and l aid in the supine position. The area of the right leg was prepped and draped in usual sterile fashion after appropriate anesthetic was performed per the anesthesiologist. A timeout was performed in normal fashion antibiotics were administered prior to incisions. A transverse incision was then made about the midshaft of the tibia and a long posterior flap was created. Dissection was then carried down to the fascia the fascia was incised with electrocautery. Further dissection was then carried down around the tibia and fibula through the musculature. The neurovascular bundle was identified and the anterior compartment and was clamped and cut and suture ligated in normal fashion. Dissection was then continued and deepened and dissection around the tibia was performed. A lap sponge was then placed in the posterior aspect of the tibia. Tibial vessels were identified clamped and cut and suture ligated in normal fashion. The periosteum was then elevated on the tibia as well as the fibula and the tibia was cut with a oscillating saw. The anterior portion was beveled anteriorly and smoothed with the saw. The fibula was then cut approximately 2 cm above the tibial cut. The remaining posterior compartment was then divided and the leg was passed off the field. The vascular bundle along with the nerve was dissected free and suture ligated with 2-0 silk suture. Upon dissection the tissues were bleeding but the muscle at the distal portion of the dissection appeared to be rowe. This was all removed to bleeding tissues. The posterior flap was then copiously irrigated with saline. The fascia was then brought together with 2-0 Vicryl suture in interrupted fashion. The skin was then closed with nellie. The area was then cleansed and dressed with fluffs, Kerlix and an Germán wrap. The patient tolerated procedure well and was sent to PACU for recovery.
[2018-08-11] MEDS ORDERED: NALOXONE 0.4 MG/ML 1 ML VIAL IV PRN (09:25)
[2018-08-11] MEDS: IPRATROPIUM-ALBUTEROL 3 ML NEB INHALATION SCH ×4 (09:38→21:13)
[2018-08-11] MEDS: SYMBICORT 80-4.5 MCG INHALER INHALATION SCH ×2 (09:38→21:13)
[2018-08-11 09:41] LABS: Glucose,Whole Blood 207 mg/dL (75-99)
[2018-08-11 11:03] LABS: Basophils % (A) 1 %; Eosinophils # (A) 0.2 k/uL (0-0.7); Eosinophils % (A) 3 %; HGB 9.8 gm/dL (13.0-17.5); Lymphocytes # (A) 0.6 k/uL (1.0-4.8); Lymphocytes % (A) 10 %; MCH 30.9 pg (25.0-35.0); MCHC 32.5 g/dL (31.0-37.0); MCV 95.2 fL (80.0-100.0); Mean Platelet Volume 6.7; Monocytes # (A) 0.5 k/uL (0-1.0); Monocytes % (A) 8 %; Neutrophils # (A) 5.1 k/uL (1.3-7.7); Neutrophils % (A) 76 %; Platelet Count 221 k/uL (150-450); RBC 3.16 m/uL (4.30-5.90); RDW 14.5 % (11.5-15.5); WBC 6.7 k/uL (3.8-10.6)
[2018-08-11] MEDS: INSULIN ASPART (NovoLOG) 100 UNIT/ML VIAL SQ SCH ×4 (11:06→21:31)
[2018-08-11] MEDS: FUROSEMIDE 40 MG TAB PO SCH ×2 (11:07→15:32)
[2018-08-11] MEDS: SODIUM CHLORIDE 0.9% 1,000 ML IV SCH (11:09)
[2018-08-11 11:26] LABS: Glucose,Whole Blood 180 mg/dL (75-99)
[2018-08-11] MEDS: HYDROmorphone 0.5 MG/0.5 ML SYRINGE IVP PRN ×3 (12:26→22:50)
[2018-08-11] MEDS: ALLOPURINOL 300 MG TAB PO SCH (12:29)
[2018-08-11] MEDS: SPIRONOLACTONE 25 MG TAB PO SCH (12:29)
[2018-08-11] MEDS: METOPROLOL TARTRATE 50 MG TAB PO SCH ×2 (12:29→20:55)
[2018-08-11] MEDS: HYDROcodone/APAP 5-325MG 1 EACH TAB PO PRN (13:24)
[2018-08-11] MEDS: COLCHICINE 0.6 MG EACH PO SCH (13:25)
[2018-08-11] MEDS: GABAPENTIN 300 MG CAP PO SCH ×2 (15:32→20:55)
[2018-08-11] MEDS: LISINOPRIL 2.5 MG TAB PO SCH (15:32)
[2018-08-11 16:23] LABS: Glucose,Whole Blood 131 mg/dL (75-99)
--- NOTE | 2018-08-11 16:52 | P.PN ---
Subjective Progress Note Date: 08/11/18 Progress note being dictated for Dr. Gale Interval history: This is a 77-year-old gentleman admitted with right second toe gangrene with secondary cellulitis. Scheduled for angiogram today and possible amputation pending results as per vascular surgery. T-max 99.4. Potassium 3.3, magnesium 1.5. Maintained on vancomycin and Zosyn. Sitting up in chair, pain currently controlled, denies increased pain of affected extremity. Denies chest pain, palpitations. 08/10/2018 status post angiogram reporting occluded anterior tibial and posterior tibial arteries just after the takeoff without collateralization, no flow from the ankle extending to the toes. Vascular surgery recommending below- knee amputation. Tolerated procedure well. Denies chest pain, palpitations or increased shortness of breath. Maintained on IV antibiotics. T-max 99.1, normal WBC. Received potassium and magnesium supplements yesterday, magnesium 1.7, BMP pending. 08/11/2018 patient is returning from OR-right BKA, EBL 100 ML. Tolerated procedure well.pain controlled.VSS. Maintained on IV antibiotics. T-max 100.5. Hemoglobin 9.8. Blood sugars better controlled. Denies chest pain, palpitations or increasing shortness of breath. Objective - Vital Signs Vital signs: Vital Signs Temp 97.9 F 08/11/18 15:31 Pulse 83 08/11/18 15:31 Resp 20 08/11/18 16:00 BP 102/73 08/11/18 15:31 Pulse Ox 96 08/11/18 15:31 Intake & Output 08/10/18 08/11/18 08/11/18 18:59 06:59 18:59 Intake Total 740 440 510 Output Total 950 300 400 Balance -210 140 110 Weight 70 kg 70 kg Intake: IV 200 510 Sodium Chloride 0.9% 1, 60 000 ml @ 20 mls/hr IV . Q24H [facility] Rx#:[id number] Intake, IV Titration 180 Amount Piperacillin-Tazobactam 3 100 .375 gm In Sodium Chloride 0.9% 100 ml @ 25 mls/hr IVPB Q8H [facility] Rx#: [id number] Sodium Chloride 0.9% 500 80 ml 500 ml @ 0 mls/hr IV . [facility] [[email or web address] Rx#: [id number] Oral 560 240 Output: Urine 950 300 300 Estimated Blood Loss 100 Other: Voiding Method Urinal # Voids 0 - Exam PHYSICAL EXAM: VITAL SIGNS: As above GENERAL: Lying in bed, no acute distress HEENT: Conjunctivae normal. eyes normal. Oral mucosa dry NECK: No JVD. No thyroid enlargement. No LNs CARDIOVASCULAR: S1, S2 muffled. No murmur RESPIRATION: Breath sounds diminished in the bases. Occasional minimal bilateral expiratory wheeze .No rhonchi or crackles. ABDOMEN: Soft, nontender . No guarding. no masses palpable.Bowel sounds heard. PSYCHIATRY: Alert and oriented -3, mood and affect normal. NERVOUS SYSTEM: Cranial N 2-12 grossly normal. Diffuse weakness. No focal deficits. Minimal neuropathy. Skin: Right lower extremity dressing clean dry and intact - Labs CBC & Chem 7: 08/11/18 10:36 08/10/18 06:29 Labs: Abnormal Lab Results - Last 24 Hours (Table) 08/10/18 08/10/18 08/11/18 Range/Units 16:26 20:40 01:19 RBC (4.30-5.90) m/uL Hgb (13.0-17.5) gm/dL Hct (39.0-53.0) % Lymphocytes # (1.0-4.8) k/uL POC Glucose (mg/dL) 236 H 345 H 124 H (75-99) mg/dL 08/11/18 08/11/18 08/11/18 Range/Units 05:44 06:26 09:12 RBC (4.30-5.90) m/uL Hgb (13.0-17.5) gm/dL Hct (39.0-53.0) % Lymphocytes # (1.0-4.8) k/uL POC Glucose (mg/dL) 183 H 163 H 207 H (75-99) mg/dL 08/11/18 08/11/18 08/11/18 Range/Units 10:36 11:23 16:09 RBC 3.16 L (4.30-5.90) m/uL Hgb 9.8 L (13.0-17.5) gm/dL Hct 30.0 L (39.0-53.0) % Lymphocytes # 0.6 L (1.0-4.8) k/uL POC Glucose (mg/dL) 180 H 131 H (75-99) mg/dL Microbiology - Last 24 Hours (Table) 08/04/18 23:14 Blood Culture - Final Blood No Growth after 144 hours Assessment and Plan Assessment: -Right second toe gangrene with acute cellulitis of the right foot. Status post angiogram reporting right lower extremity critical limb ischemia with second toe gangrene. Right anterior tibial, posterior tibial artery occlusion with no flow distal to the ankle. Status post right BKA. -Peripheral vascular disease ,peripheral arterial disease -Mild acute on chronic congestive heart failure, systolic dysfunction -CAD with history of stent -Diabetes mellitus type 2 -Benign prostatic hypertrophy -Chronic persistent atrial fibrillation -History of gout -Hypomagnesemia -Hypokalemia Plan: Continue on current medication regime ,monitoring and symptomatic treatment. Cautious with IV fluid hydration, 0.9@20 miles per hour. Maintain Nebulized bronchodilators, antibiotics as per infectious disease. Close monitoring of electrolytes, hemoglobin with repeat labs ordered for a.m. Social work consult in place with potential subacute rehab. when medically stable for DC. The impression and plan of care has been dictated as directed. : I performed a history and examination of this patient, discussed the same with the dictator. I agree with the dictator's note ,documented as a scribe. Any additional findings or plans will be noted.
[2018-08-11] MEDS: ATORVASTATIN 40 MG TAB PO SCH (20:55)
[2018-08-11] MEDS: TAMSULOSIN 0.4 MG CAP.ER.24H PO SCH (20:55)
[2018-08-11 21:14] LABS: Glucose,Whole Blood 136 mg/dL (75-99)
--- NOTE | 2018-08-11 23:22 | PN ---
PROGRESS NOTE DATE OF SERVICE: 08/11/2018. REASON FOR FOLLOWUP: Right diabetic foot infection with Deb's grade 4. INTERVAL HISTORY: The patient is status post right [id number] amputation this morning. The patient tolerated the procedure. The patient was seen in the postop period. The patient has been breathing comfortably. Denies any chest pain, cough, or any worsening abdominal pain to the surgical site. Currently on pain medication. PHYSICAL EXAMINATION: Blood pressure 136/86, pulse 87, temperature 98.8. He is 97% on 3 L nasal cannula. GENERAL DESCRIPTION: An elderly male lying in bed in no distress. RESPIRATORY SYSTEM: Unlabored breathing. Clear to auscultation anteriorly. HEART: S1, S2. Regular rate and rhythm. ABDOMEN: Soft, nontender. EXTREMITIES: Right BK stump is currently dressed up, no obvious drainage on the dressing. LABS: Hemoglobin 9.8, white count 6.7. DIAGNOSTIC IMPRESSION AND PLAN: Patient with right diabetic foot infection, grade 4, with necrotic 2nd toe status post amputation. Infected . The patient will benefit from . He will not need to be on antibiotic. Continue the patient on IV vancomycin for the next 24 to 48 hours. Continue supportive care. MMODL / IJN: [id number] /
[2018-08-12 06:16] LABS: Glucose,Whole Blood 266 mg/dL (75-99)
[2018-08-12] MEDS: INSULIN ASPART (NovoLOG) 100 UNIT/ML VIAL SQ SCH ×4 (06:38→20:29)
[2018-08-12] MEDS: ACETAMINOPHEN TAB 325 MG TAB PO PRN ×3 (06:44→22:49)
[2018-08-12 07:29] LABS: Basophils % (A) 0 %; Eosinophils # (A) 0.1 k/uL (0-0.7); Eosinophils % (A) 1 %; HCT 29.9 % (39.0-53.0); HGB 9.4 gm/dL (13.0-17.5); Lymphocytes # (A) 0.6 k/uL (1.0-4.8); Lymphocytes % (A) 7 %; MCH 30.1 pg (25.0-35.0); MCHC 31.6 g/dL (31.0-37.0); MCV 95.2 fL (80.0-100.0); Mean Platelet Volume 6.8; Monocytes # (A) 0.6 k/uL (0-1.0); Monocytes % (A) 7 %; Neutrophils # (A) 7.1 k/uL (1.3-7.7); Neutrophils % (A) 81 %; Platelet Count 255 k/uL (150-450); RBC 3.14 m/uL (4.30-5.90); RDW 14.7 % (11.5-15.5); WBC 8.8 k/uL (3.8-10.6)
[2018-08-12 07:43] LABS: Calcium 7.9 mg/dL (8.4-10.2); Potassium 3.6 mmol/L (3.5-5.1)
[2018-08-12] MEDS: IPRATROPIUM-ALBUTEROL 3 ML NEB INHALATION SCH ×4 (07:53→20:13)
[2018-08-12] MEDS: SYMBICORT 80-4.5 MCG INHALER INHALATION SCH ×2 (07:53→20:13)
[2018-08-12] MEDS: HYDROcodone/APAP 5-325MG 1 EACH TAB PO PRN ×2 (08:25→17:44)
[2018-08-12] MEDS: ALLOPURINOL 300 MG TAB PO SCH (09:26)
[2018-08-12] MEDS: FUROSEMIDE 40 MG TAB PO SCH ×2 (09:26→15:26)
[2018-08-12] MEDS: METOPROLOL TARTRATE 50 MG TAB PO SCH (09:26)
[2018-08-12] MEDS: COLCHICINE 0.6 MG EACH PO SCH (09:26)
[2018-08-12] MEDS: SPIRONOLACTONE 25 MG TAB PO SCH (09:26)
[2018-08-12] MEDS: GABAPENTIN 300 MG CAP PO SCH ×3 (09:26→20:24)
[2018-08-12] MEDS: SODIUM CHLORIDE 0.9% 1,000 ML IV SCH (11:32)
[2018-08-12 11:36] LABS: Glucose,Whole Blood 191 mg/dL (75-99)
[2018-08-12] MEDS: LISINOPRIL 2.5 MG TAB PO SCH (12:32)
--- NOTE | 2018-08-12 13:24 | XR ---
EXAMINATION TYPE: XR chest 1V portable DATE OF EXAM: 08/12/2018 HISTORY: chf. REFERENCE: Previous study dated 08/04/2018. FINDINGS: There is a unipolar pacemaker place on the left. The heart is enlarged. There is vascular congestion. There is left basilar airspace disease. I could not exclude a small left effusion. IMPRESSION: 1. CARDIOMEGALY. 2. LEFT BASILAR AIRSPACE DISEASE. 3. I COULD NOT EXCLUDE A SMALL LEFT-SIDED EFFUSION.
--- NOTE | 2018-08-12 14:14 | PN ---
PROGRESS NOTE DATE OF SERVICE: 08/12/2018 This is a 77-year-old gentleman who was admitted with right second toe gangrene, had right below-knee amputation. No chest pain. No palpitations. No fever. The cultures are negative. PHYSICAL EXAM: Alert and oriented x3. Pulse is 43, blood pressure 107/60, respiration 18, temperature 98 degrees, pulse ox 98% on 4 L. HEENT: Conjunctivae normal. NECK: No JVD. CARDIOVASCULAR: S1, S2, muffled. RESPIRATION: Breath sounds diminished at the bases, no rhonchi, no crackles. ABDOMEN: Soft, nontender. LEGS: Status post right below-knee amputation. NERVOUS SYSTEM: No focal deficits. LABS: At this time shows creatinine is 1.87, hemoglobin is 1.94. Accu-Cheeks noted. REVIEW OF SYSTEMS: CARDIOVASCULAR SYSTEM: No angina. GI: No nausea. : No dysuria. CURRENT MEDICATIONS: Reviewed includin. Tylenol p.r.n. 2. Pecos 5 mg. 3. DuoNeb q.i.d. and p.r.n. 4. Zyloprim 300 mg daily. 5. Xanax. 6. Lipitor 40 mg. 7. Symbicort. 9. Colcrys. 10.Lasix. 11.Dilaudid. 12.Zestril. 13.Lopressor. 14.Narcan. 15.Aldactone. 16.Flomax. 17.Restoril. ASSESSMENT: 1. Right second toe gangrene with cellulitis, status post right below-knee amputation. 2. Chronic obstructive pulmonary disease with peripheral vascular disease on the right leg. 3. Peripheral artery disease. 4. Acute on chronic congestive heart failure with acute on chronic systolic dysfunction. 5. Acute tubular necrosis with acute renal failure, possibly with prerenal factors. 6. Coronary artery disease with history of stent. 7. Diabetes mellitus type 2. 8. Benign prostatic hypertrophy. 9. Chronic persistent atrial fibrillation. 10.History of gout. 11.History of hypomagnesemia. 12.Hypokalemia. RECOMMENDATION: Recommend to continue current management, continue with the symptomatic treatment. At this time, I would recommend hold the lisinopril. Monitor creatinine closely. Ensure hydration. Otherwise, avoid nephrotoxic medications. We will also do a chest x-ray to evaluate the fluid status and if the creatinine is worsening, I would recommend to hold the Lasix. Continue the rest of the treatment including bronchodilators, otherwise I would also recommend PT, OT evaluation and possible ECF rehab also. The prognosis is guarded. Will closely follow with Vascular Surgery recommendations. Further recommendations to follow. PASQUALE / IKE: [id number] / MTDD
[2018-08-12] MEDS: PIPERACILLIN-TAZOBACTAM 3.375 GM in SODIUM CHLORIDE 0.9% 100 ML IVPB SCH ×2 (16:19→22:45)
[2018-08-12 16:49] LABS: Glucose,Whole Blood 150 mg/dL (75-99)
--- NOTE | 2018-08-12 17:11 | PN ---
PROGRESS NOTE DATE OF SERVICE: 08/12/2018. REASON FOR FOLLOWUP: 1. Right diabetic foot infection. 2. Possible nosocomial pneumonia. INTERVAL HISTORY: The patient is currently afebrile. Patient breathing slightly comfortably. He did have a cough. Bringing up some sputum. No chest pain. No nausea, vomiting, no abdominal pain. Pain to the right BK site is currently controlled. PHYSICAL EXAMINATION: Blood pressure 107/56, pulse of 72, temperature 99. He is 96% on 4 L nasal cannula. General description is an elderly male lying in bed in no distress. Respiratory system: Unlabored breathing. Decreased breath sounds in the bases. Occasional wheeze. Heart S1, S2. Regular rate and rhythm. Abdomen soft. No tenderness. LABS: Hemoglobin 9.4, white count 8.8. BUN of 19, creatinine 1.87. DIAGNOSTIC IMPRESSION/PLAN: 1. Patient admitted to the hospital with right upper extremity infection Deb's Grade IV in this patient who did have a right second toe gangrene, status post right [id number] amputation because of severe PAD. Patient underlying diabetic foot infection has been adequately treated. We will discontinue the vancomycin. 2. The patient now with left lower lobe pneumonia, concern for possible nosocomial pathogen. We will check the sputum for Gram stain and culture, start the patient on Zosyn 3.375 q.8 hours and monitor his clinical course closely. MMODL / IJN: [id number] /
[2018-08-12] MEDS: METOPROLOL TARTRATE 25 MG TAB PO SCH (20:24)
[2018-08-12] MEDS: TAMSULOSIN 0.4 MG CAP.ER.24H PO SCH (20:24)
[2018-08-12] MEDS: ATORVASTATIN 40 MG TAB PO SCH (20:24)
[2018-08-12 20:33] LABS: Glucose,Whole Blood 268 mg/dL (75-99)
[2018-08-13] MEDS ORDERED: VANCOMYCIN 1,250 MG in SODIUM CHLORIDE 0.9% 250 ML IVPB SCH ×2
[2018-08-13 06:14] LABS: Glucose,Whole Blood 183 mg/dL (75-99)
[2018-08-13] MEDS: INSULIN ASPART (NovoLOG) 100 UNIT/ML VIAL SQ SCH ×4 (06:15→20:37)
[2018-08-13 06:47] LABS: Basophils % (A) 0 %; Eosinophils # (A) 0.3 k/uL (0-0.7); Eosinophils % (A) 3 %; HCT 28.1 % (39.0-53.0); HGB 8.9 gm/dL (13.0-17.5); Lymphocytes # (A) 0.6 k/uL (1.0-4.8); Lymphocytes % (A) 6 %; MCH 29.9 pg (25.0-35.0); MCHC 31.5 g/dL (31.0-37.0); Monocytes # (A) 0.6 k/uL (0-1.0); Monocytes % (A) 7 %; Neutrophils # (A) 7.8 k/uL (1.3-7.7); Neutrophils % (A) 81 %; Platelet Count 230 k/uL (150-450); RBC 2.96 m/uL (4.30-5.90); RDW 14.5 % (11.5-15.5); WBC 9.7 k/uL (3.8-10.6)
[2018-08-13] MEDS: SYMBICORT 80-4.5 MCG INHALER INHALATION SCH ×2 (07:11→20:35)
[2018-08-13] MEDS: IPRATROPIUM-ALBUTEROL 3 ML NEB INHALATION SCH ×4 (07:11→20:35)
[2018-08-13] MEDS: PIPERACILLIN-TAZOBACTAM 3.375 GM in SODIUM CHLORIDE 0.9% 100 ML IVPB SCH ×3 (08:55→23:41)
[2018-08-13] MEDS: GABAPENTIN 300 MG CAP PO SCH ×3 (08:55→20:37)
[2018-08-13] MEDS: COLCHICINE 0.6 MG EACH PO SCH (08:55)
[2018-08-13] MEDS: FUROSEMIDE 40 MG TAB PO SCH (08:55)
[2018-08-13] MEDS: SPIRONOLACTONE 25 MG TAB PO SCH (08:56)
[2018-08-13] MEDS: METOPROLOL TARTRATE 25 MG TAB PO SCH ×2 (08:56→20:36)
[2018-08-13] MEDS: ALLOPURINOL 300 MG TAB PO SCH (08:56)
[2018-08-13] MEDS: HYDROcodone/APAP 5-325MG 1 EACH TAB PO PRN ×2 (09:50→12:51)
[2018-08-13 11:33] LABS: Calcium 7.5 mg/dL (8.4-10.2)
[2018-08-13 11:52] LABS: Glucose,Whole Blood 320 mg/dL (75-99)
--- NOTE | 2018-08-13 12:45 | P.PN ---
Subjective This 77-year-old gentleman with history of ischemic cardiomyopathy, previous stent placement and chronic congestive heart failure admitted to the hospital with gangrenous toe now S/P amputation. Pt continues stable, SR on monitors. Pt being medicated for c/o of right lower extremity pain. No current c/o of chest pain, chest pressure, shortness of breath or palpitations. PLAN: Order to add plavix 75MG and 81MG ASA for cardiac stent protection. Plan to continue same medical/medication regime. Will continue to follow, call with questions or concerns. Objective - Vital Signs Vital signs: Vital Signs Temp 97.7 F 08/13/18 06:19 Pulse 80 08/13/18 12:22 Resp 20 08/13/18 03:43 BP 118/65 08/13/18 03:43 Pulse Ox 95 08/13/18 03:43 Intake & Output 08/12/18 08/13/18 08/13/18 18:59 06:59 18:59 Intake Total 701 480 120 Output Total 1187 650 Balance -486 -170 120 Weight 69 kg Intake: Oral 701 480 120 Output: Urine 500 650 Post Void Residual 687 Other: Voiding Method Urinal - Exam CARDIAC PHYSICAL EXAM: GENERAL: Well-appearing, well-nourished and in no acute distress. NECK: Supple without JVD or thyromegaly. LUNGS: Breath sounds clear to auscultation bilaterally. Respiration equal and unlabored. No wheezes, rales or rhonchi. HEART: Regular rate and rhythm, no rubs or gallops. S1 and S2 heard. No murmur. EXTREMITIES: Normal range of motion, no edema. No clubbing or cyanosis. Peripheral pulses intact. - Labs CBC & Chem 7: 08/13/18 06:13 08/13/18 06:13 Labs: Abnormal Lab Results - Last 24 Hours (Table) 08/12/18 08/12/18 08/13/18 Range/Units 16:34 20:21 06:12 RBC (4.30-5.90) m/uL Hgb (13.0-17.5) gm/dL Hct (39.0-53.0) % Neutrophils # (1.3-7.7) k/uL Lymphocytes # (1.0-4.8) k/uL Sodium (137-145) mmol/L BUN (9-20) mg/dL Creatinine (0.66-1.25) mg/dL Glucose (74-99) mg/dL POC Glucose (mg/dL) 150 H 268 H 183 H (75-99) mg/dL Calcium (8.4-10.2) mg/dL 08/13/18 08/13/18 08/13/18 Range/Units 06:13 06:13 11:38 RBC 2.96 L (4.30-5.90) m/uL Hgb 8.9 L (13.0-17.5) gm/dL Hct 28.1 L (39.0-53.0) % Neutrophils # 7.8 H (1.3-7.7) k/uL Lymphocytes # 0.6 L (1.0-4.8) k/uL Sodium 135 L (137-145) mmol/L BUN 27 H (9-20) mg/dL Creatinine 2.26 H (0.66-1.25) mg/dL Glucose 158 H (74-99) mg/dL POC Glucose (mg/dL) 320 H (75-99) mg/dL Calcium 7.5 L (8.4-10.2) mg/dL Assessment and Plan Plan: PLAN: Order to add plavix 75MG and 81MG ASA for cardiac stent protection. Plan to continue same medical/medication regime. Will continue to follow, call with questions or concerns.
[2018-08-13] MEDS: CLOPIDOGREL 75 MG TAB PO SCH (12:51)
[2018-08-13] MEDS: ASPIRIN 81 MG PO SCH (12:51)
[2018-08-13] MEDS: SODIUM CHLORIDE 0.9% 1,000 ML IV SCH (12:56)
--- NOTE | 2018-08-13 13:15 | PN ---
PROGRESS NOTE DATE OF SERVICE: 08/13/2018 This 77-year-old gentleman who was admitted after right 2nd toe gangrene had right below-knee amputation. The patient also has some bowel movements. The patient also had a chest x-ray that showed possible left lower pneumonia possibly nosocomial pneumonia is considered. Dr. Aragon is recommending Zosyn IV at this time. The patient also had a Cabrera catheter inserted last night. PAST MEDICAL HISTORY: Reviewed. REVIEW OF SYSTEMS: CARDIOVASCULAR: No angina. RESPIRATORY: As mentioned earlier. GI: No nausea. : No dysuria. NERVOUS SYSTEM: No numbness, weakness. CURRENT MEDICATIONS: Reviewed and include: 1. Tylenol p.r.n. 2. [place] 5 mg q.4h p.r.n. 3. DuoNeb q.i.d. and p.r.n. 4. Zyloprim 300 mg. 5. Xanax 0.5 t.i.d. 6. Aspirin 81 mg. 7. Lipitor 40 mg q.h.s. 8. Symbicort 80/4.5 two puffs b.i.d. 9. Soma 350 mg p.o. t.i.d. 10.Plavix 75 mg. 11.Colcrys 0.6 daily. 12.Lasix 40 mg b.i.d. 13.Neurontin 400 mg t.i.d. 14.Dilaudid 4 p.r.n. 15.NovoLog scale. 16.Lopressor 25 mg p.o. b.i.d. 17.Narcan 0.2 q.2h p.r.n. 18.Zosyn 3.375 IV q.8h. 19.Aldactone 25 mg. 20.Flomax 0.4 daily. 21.Restoril 50 mg q.h.s. p.r.n. PHYSICAL EXAM: Patient is alert, oriented x2. The pulse is 88, blood pressure 118/62, respiration 20, temperature 98.8, pulse ox 94% on 4 L. HEENT: Conjunctivae normal. Oral mucosa moist. Neck is no jugular venous distention. No carotid bruit. No lymph node enlargement. CARDIOVASCULAR: S1, S2. RESPIRATORY: Breath sounds diminished in the bases. A few scattered rhonchi and crackles. ABDOMEN: Soft, nontender. No mass palpable. LEGS: Status post right below-knee amputation. NERVOUS SYSTEM: Mild diffuse weakness. LABS: WBC 9.2, hemoglobin is 8.9, sodium 135, creatinine is 2.26. ASSESSMENT: 1. Right 2nd toe gangrene and cellulitis status post right below-knee amputation. 2. Acute renal failure possibly prerenal acute tubular necrosis. 3. Chronic obstructive pulmonary disease acute exacerbation. 4. Possible left lower lobe pneumonia possibly nosocomial possibly aspiration. 5. Severe peripheral vascular disease. 6. Congestive heart failure acute exacerbation, acute on chronic systolic dysfunction. 7. Coronary artery disease, stent. 8. Diabetes mellitus type 2. 9. Benign prostatic hypertrophy. 10.Chronic persistent atrial fibrillation. 11.History of gout. 12.History of hypomagnesia. 13.History of hypokalemia. 14.Urinary obstruction. RECOMMENDATIONS AND DISCUSSION: I recommend to continue current management and symptomatic treatment. Otherwise at this time I recommend to monitor the creatinine closely. I would stop Lasix at this time and avoid nephrotoxic medications and will hold the allopurinol also to be restarted later. Continue the antibiotics. Continue the bronchodilators. I would also recommend to continue with his Flomax and continue to monitor. Overall prognosis guarded because of multiple complex medical issues. Also recommend nephrology evaluation as well. Further recommendations to follow. MMODL / IJN: [id number] /
[2018-08-13 13:44] LABS: Albumin 2.6 g/dL (3.5-5.0); Calcium 7.4 mg/dL (8.4-10.2); Potassium 3.9 mmol/L (3.5-5.1); Total Bilirubin 0.4 mg/dL (0.2-1.3); Total Protein 4.9 g/dL (6.3-8.2)
[2018-08-13 16:38] LABS: Glucose,Whole Blood 234 mg/dL (75-99)
[2018-08-13] MEDS: TAMSULOSIN 0.4 MG CAP.ER.24H PO SCH (20:37)
[2018-08-13] MEDS: ATORVASTATIN 40 MG TAB PO SCH (20:37)
[2018-08-13 20:43] LABS: Glucose,Whole Blood 157 mg/dL (75-99)
[2018-08-13] MEDS: HYDROmorphone 0.5 MG/0.5 ML SYRINGE IVP PRN (21:31)
--- NOTE | 2018-08-13 23:12 | PN ---
PROGRESS NOTE DATE OF SERVICE: 08/13/2018. REASON FOR FOLLOWUP: Left lower lobe pneumonia. INTERVAL HISTORY: The patient is afebrile, has been breathing more comfortably. He did have some cough and bringing up some sputum. Sputum cultures were requested yesterday, not collected. The patient denies having any chest pain. No abdominal pain. Pain to the right BK stump is currently controlled. PHYSICAL EXAMINATION: Blood pressure is 102/71 with a pulse of 80, temperature 98.3, he is 95% on 3 L nasal cannula. GENERAL DESCRIPTION: An elderly male lying in bed in no distress. RESPIRATORY SYSTEM: Unlabored breathing with decreased breath sounds at the bases. HEART: S1, S2. Regular rate and rhythm. ABDOMEN: Soft, nontender. LABS: Hemoglobin 8.8, white count 9.7, creatinine up to 2.27. Blood culture negative. Sputum not collected. DIAGNOSTIC IMPRESSION AND PLAN: 1. Patient with right diabetic foot infection, Deb's Grade IV. The patient did have a right second toe gangrene status post right [id number] amputation. The patient is off the vancomycin. 2. The patient with left lower lobe pneumonia, concern for possible aspiration. The patient is covered with Zosyn. We will try to obtain a sputum to narrow down his antibiotics. Family present at bedside. Questions were answered. MMODL / IJN: [id number] /
[2018-08-14] MEDS: ACETAMINOPHEN TAB 325 MG TAB PO PRN ×2 (04:45→20:23)
[2018-08-14 05:57] LABS: Glucose,Whole Blood 171 mg/dL (75-99)
[2018-08-14] MEDS: INSULIN ASPART (NovoLOG) 100 UNIT/ML VIAL SQ SCH ×4 (06:12→20:26)
[2018-08-14 07:03] LABS: Basophils % (A) 0 %; Eosinophils # (A) 0.2 k/uL (0-0.7); Eosinophils % (A) 3 %; HCT 27.1 % (39.0-53.0); HGB 8.4 gm/dL (13.0-17.5); Lymphocytes # (A) 0.5 k/uL (1.0-4.8); Lymphocytes % (A) 5 %; MCH 28.9 pg (25.0-35.0); MCHC 31.1 g/dL (31.0-37.0); Mean Platelet Volume 7.9; Monocytes # (A) 0.6 k/uL (0-1.0); Monocytes % (A) 7 %; Neutrophils # (A) 7.2 k/uL (1.3-7.7); Neutrophils % (A) 82 %; Platelet Count 239 k/uL (150-450); RBC 2.91 m/uL (4.30-5.90); RDW 14.7 % (11.5-15.5); WBC 8.8 k/uL (3.8-10.6)
[2018-08-14 07:18] LABS: Calcium 7.3 mg/dL (8.4-10.2); Potassium 4.2 mmol/L (3.5-5.1)
[2018-08-14] MEDS ORDERED: FUROSEMIDE 10 MG/ML 4 ML VIAL IV STA (07:55)
[2018-08-14] MEDS: PIPERACILLIN-TAZOBACTAM 3.375 GM in SODIUM CHLORIDE 0.9% 100 ML IVPB SCH ×2 (08:24→16:05)
[2018-08-14] MEDS: GABAPENTIN 300 MG CAP PO SCH ×3 (08:24→20:23)
[2018-08-14] MEDS: ASPIRIN 81 MG PO SCH (08:25)
[2018-08-14] MEDS: CLOPIDOGREL 75 MG TAB PO SCH (08:25)
[2018-08-14] MEDS: APIXABAN 2.5 MG TABLET PO SCH ×2 (08:25→20:23)
[2018-08-14] MEDS: METOPROLOL TARTRATE 25 MG TAB PO SCH ×2 (08:25→20:23)
[2018-08-14] MEDS: COLCHICINE 0.6 MG EACH PO SCH (08:25)
[2018-08-14] MEDS: HYDROcodone/APAP 5-325MG 1 EACH TAB PO PRN ×2 (08:31→18:03)
[2018-08-14] MEDS: SYMBICORT 80-4.5 MCG INHALER INHALATION SCH ×2 (08:32→19:59)
[2018-08-14] MEDS: IPRATROPIUM-ALBUTEROL 3 ML NEB INHALATION SCH ×4 (08:33→19:58)
--- NOTE | 2018-08-14 09:12 | P.NPCON ---
History of Present Illness - Reason for Consult acute renal failure - History of Present Illness Reason for consultation: Acute kidney injury History of present illness: Patient is a 77-year-old male seen in renal consultation for acute kidney injury. His baseline creatinine is 1. Renal function has been worsening over the last few days. Creatinine today is up to 2.43. [facility] due to a right foot infection. He subsequently underwent right below the knee amputation on August 11. He was initiated receiving IV vancomycin. He was also on Lasix 40 mg twice daily. He was also noted to have urinary retention and currently has a Cabrera catheter in place. Dose of diuretics has been decreased. IV vancomycin has been discontinued. He does have history of systolic CHF with ejection fraction of 20-25%. No edema. Denies chest pain. No shortness of breath. He did undergo an angiogram on August 09. Denies use of NSAIDs. States he was diagnosed with diabetes about 3 years ago. He is nonoliguric. Vital signs are stable. General: The patient appeared well nourished and normally developed. HEENT: Head exam is unremarkable. Neck is without jugular venous distension. LUNGS: Lungs are clear to auscultation and percussion. Breath sounds decreased. HEART: Rate and Rhythm are regular. First and second heart sounds normal. No murmurs, rubs or gallops. ABDOMEN: Abdominal exam reveals normal bowel sounds. Non-tender and non- distended. No evidence of peritonitis. EXTREMITITES: No clubbing, cyanosis, or edema. Right BKA noted. Past Medical History Past Medical History: Atrial Fibrillation, Asthma, Coronary Artery Disease (CAD), Cancer, Heart Failure, COPD, Diabetes Mellitus, Hearing Disorder / Deafness, Myocardial Infarction (ID), Pneumonia, Prostate Disorder, Rheumatoid Arthritis (RA) Additional Past Medical History / Comment(s): Prostate cancer (2009) with radiation, bronchitis, NIDDM type II, neuropathy bilateral hands and feet, R foot 2nd toe black , gout bilateral elbows, L wrist tendonitis, BPH, [place] bilaterally, vitiligo Last Myocardial Infarction Date:: 2015 History of Any Multi-Drug Resistant Organisms: None Reported Past Surgical History: AICD, Appendectomy, Cholecystectomy, Heart Catheterization With Stent, Joint Replacement, Pacemaker, Tonsillectomy Additional Past Surgical History / Comment(s): PCI with stents 2016, AICD/pacermultiple nasal surgeries for nasal polyps, right hip replacement Past Anesthesia/Blood Transfusion Reactions: No Reported Reaction Date of Last Stent Placement:: 2015 Type of Cardiac Device: Permanent Pacemaker, AICD Device Placement Date:: 2014 Past Psychological History: No Psychological Hx Reported Additional Psychological History / Comment(s): Pt lives alone in 2 story home. has 13 steps to 2nd floor and 4 porch steps. No home care services, has cane/walker,nebulizer. Smoking Status: Former smoker Past Alcohol Use History: Occasional Additional Past Alcohol Use History / Comment(s): Pt started smoking in 1958 and quit in 1972. Past Drug Use History: None Reported - Past Family History Mother Family Medical History: No Reported History Brother(s) Additional Family Medical History / Comment(s): tuberculosis in the Father Family Medical History: Myocardial Infarction (ID) Medications and Allergies Home Medications Medication Instructions Recorded Confirmed Type Allopurinol [Zyloprim] 300 mg PO DAILY 05/09/15 08/04/18 History Tamsulosin HCl [Flomax] 0.4 mg PO HS 05/13/15 08/04/18 History Spironolactone [Aldactone] 25 mg PO DAILY #30 tab 05/10/16 08/04/18 Rx metFORMIN HCL [Glucophage] 1,000 mg PO BID #0 05/10/16 08/04/18 Rx Apixaban [Eliquis] 5 mg PO BID #60 tab 07/10/17 08/04/18 Rx Furosemide [Lasix] 40 mg PO BID #60 tablet 03/02/18 08/04/18 Rx Lisinopril [Zestril] 2.5 mg PO DAILY #30 tab 03/02/18 08/04/18 Rx Metoprolol Tartrate [Lopressor] 50 mg PO BID 06/04/18 08/04/18 History Albuterol Nebulized [Ventolin 2.5 mg INHALATION DAILY PRN 08/04/18 08/04/18 History Nebulized] Atorvastatin [Lipitor] 40 mg PO HS 08/04/18 08/04/18 History Fluticasone/Salmeterol [Advair 1 puff INHALATION RT-BID 08/04/18 08/04/18 History 250-50 Diskus] methylPREDNISolone [Medrol] 4 mg PO DAILY 08/04/18 08/04/18 History Allergies Allergy/AdvReac Type Severity Reaction Status Date / Time grapefruit Allergy Unknown Verified 08/11/18 06:39 naproxen Allergy Unknown Verified 08/11/18 06:39 Tetracyclines Allergy Rash/Hives Verified 08/11/18 06:39 aspirin AdvReac was told Verified 08/11/18 06:39 not to take r/t nasal polyps Physical Exam Vitals: Vital Signs Temp Pulse Pulse Resp BP BP Pulse Ox 08/14/18 08:50 80 08/14/18 08:33 80 08/14/18 08:00 99.1 F 102 H 18 92/52 92 L 08/14/18 06:14 98.8 F 08/14/18 04:00 102.1 F H 78 18 117/62 95 08/14/18 00:00 98.9 F 72 18 111/59 96 08/13/18 20:46 84 08/13/18 20:35 80 98 08/13/18 20:00 99.3 F 67 18 102/71 95 08/13/18 16:13 86 08/13/18 15:59 84 08/13/18 15:45 98.7 F 55 L 18 94/64 98 08/13/18 12:35 98.9 F 109 H 18 102/65 100 08/13/18 12:22 80 08/13/18 12:12 86 Intake and Output 08/13/18 08/14/18 08/14/18 22:59 06:59 14:59 Intake Total 240 240 Output Total 800 Balance 240 -800 240 Intake: Oral 240 240 Output: Urine 800 Other: Weight 71.5 kg Results - Lab Results Most recent lab results Calcium 7.3 mg/dL (8.4-10.2) L 08/14/18 06:22 Magnesium 1.7 mg/dL (1.6-2.3) 08/10/18 06:29 08/14/18 06:22 08/14/18 06:22 Assessment and Plan Plan: Assessment: 1. Acute kidney injury secondary to ATN secondary to contrast-induced nephropathy and diuresis. Baseline creatinine is near 1. Elevated at 2.43 today. 2. Right foot infection status post BKA on August 11. 3. Systolic CHF with ejection fraction of 20-25%. 4. Urinary retention status post Cabrera catheter placement. Maintain on Flomax. 5. Diabetes mellitus. 6. Fluid overload. Maintained on diuretics. Plan: Maintain Lasix 40 mg daily. Check urinalysis. Check renal ultrasound. Discontinue Cabrera catheter and monitor serial postvoid residuals. Repeat electrolytes in the morning. Thank you for the consultation. I will continue to follow the patient with you during his hospital stay.
--- NOTE | 2018-08-14 10:12 | US ---
EXAMINATION TYPE: US kidneys/renal and bladder DATE OF EXAM: 08/14/2018 COMPARISON: NONE CLINICAL HISTORY: 77 year-old male acute kidney injury. TECHNIQUE: Multiple sonographic images of the kidneys and bladder are obtained. FINDINGS: EXAM MEASUREMENTS: Right Kidney: 11.3 x 6.0 x 5.5 cm Left Kidney: 12.2 x 5.9 x 5.1 cm Right Kidney: No hydronephrosis or masses seen Left Kidney: echogenic foci noted with shadowing measuring 0.5 x 0.3 x 0.5cm. No hydronephrosis seen. Bladder: wnl IMPRESSION: 1. No hydronephrosis. 2. A 5 mm nonobstructive left renal calculus.
--- NOTE | 2018-08-14 10:25 | PN ---
PROGRESS NOTE This is a gentleman with a history of ischemic cardiomyopathy, 2-vessel stenting, history of alcoholism, smoking, COPD, peripheral arterial disease. He is status post below-knee amputation of the right leg. His creatinine is about 2.4. I will discontinue Aldactone and give him IV Lasix one dose and put him on 40 mg every morning. He has history of paroxysmal A. fib. We will resume apixaban at 2.5 mg b.i.d. Continue aspirin and Plavix. He is also getting some breathing treatments. I will obtain an EKG. Blood pressure 118/70, pulse rate is about 80 per minute. S1, S2 heard normally. Short systolic murmur noted. Lungs reveal bilateral scattered rhonchi. Abdomen is soft. Lower extremities reveal edema diminished pulses on the left side, below-knee amputation on the right side. Plan is to stop Aldactone because of elevated creatinine. Continue other medications. MMODL / IJN: [id number] /
[2018-08-14 11:09] LABS: Glucose,Whole Blood 196 mg/dL (75-99)
[2018-08-14] MEDS: SODIUM CHLORIDE 0.9% 1,000 ML IV SCH (11:30)
[2018-08-14 12:16] LABS: Appearance,Urine Clear (Clear); Bacteria,Urine Few /hpf; Bilirubin,Urine Negative (Negative); Blood,Urine Small (Negative); Color,Urine Light Yellow; Glucose,Urine (UA) Negative (Negative); Ketones,Urine Negative (Negative); Leukocyte Esterase,Urine Large (Negative); Mucus,Urine Rare /hpf; Nitrite,Urine Negative (Negative); Protein,Urine Negative (Negative); RBC,Urine 13 /hpf (0-5); Specific Gravity,Urine 1.005 (1.001-1.035); Urobilinogen,Urine <2.0 mg/dL (<2.0); WBC,Urine 65 /hpf (0-5)
--- NOTE | 2018-08-14 13:25 | P.PN ---
Subjective Progress Note Date: 08/14/18 Progress note being dictated for Dr. Gale Interval history: This is a 77-year-old gentleman admitted with right second toe gangrene with secondary cellulitis. Scheduled for angiogram today and possible amputation pending results as per vascular surgery. T-max 99.4. Potassium 3.3, magnesium 1.5. Maintained on vancomycin and Zosyn. Sitting up in chair, pain currently controlled, denies increased pain of affected extremity. Denies chest pain, palpitations. 08/10/2018 status post angiogram reporting occluded anterior tibial and posterior tibial arteries just after the takeoff without collateralization, no flow from the ankle extending to the toes. Vascular surgery recommending below- knee amputation. Tolerated procedure well. Denies chest pain, palpitations or increased shortness of breath. Maintained on IV antibiotics. T-max 99.1, normal WBC. Received potassium and magnesium supplements yesterday, magnesium 1.7, BMP pending. 08/11/2018 patient is returning from OR-right BKA, EBL 100 ML. Tolerated procedure well.pain controlled.VSS. Maintained on IV antibiotics. T-max 100.5. Hemoglobin 9.8. Blood sugars better controlled. Denies chest pain, palpitations or increasing shortness of breath. 08/14/2018 maintained on Zosyn, and decreased dose of diuretics,creatinine up to 2.43. Renal ultrasound pending. Troponin elevated, 1.890. Denies chest pain, palpitations or increased shortness of breath. Evaluated by cardiology, recommendations noted. Objective - Vital Signs Vital signs: Vital Signs Temp 99.1 F 08/14/18 08:00 Pulse 80 08/14/18 08:50 Resp 18 08/14/18 08:00 BP 92/52 08/14/18 08:00 Pulse Ox 92 L 08/14/18 08:00 Intake & Output 08/13/18 08/14/18 08/14/18 18:59 06:59 18:59 Intake Total 600 240 240 Output Total 800 Balance 600 -560 240 Weight 71.5 kg Intake: Oral 600 240 240 Output: Urine 800 Other: # Bowel Movements 3 - Exam PHYSICAL EXAM: VITAL SIGNS: As above GENERAL: Sitting up in bed, no acute distress HEENT: Conjunctivae normal. eyes normal. Oral mucosa dry NECK: No JVD. No thyroid enlargement. No LNs CARDIOVASCULAR: S1, S2 muffled. No murmur RESPIRATION: Breath sounds diminished in the bases. Occasional minimal bilateral expiratory wheeze . Scattered bilateral rhonchi , no crackles. ABDOMEN: Soft, nontender . No guarding. no masses palpable.Bowel sounds heard. PSYCHIATRY: Alert and oriented -3, mood and affect normal. NERVOUS SYSTEM: Cranial N 2-12 grossly normal. Diffuse weakness. No focal deficits. Minimal neuropathy. Skin: Right BKA with lower extremity dressing clean dry and intact - Labs CBC & Chem 7: 08/14/18 06:22 08/14/18 06:22 Labs: Abnormal Lab Results - Last 24 Hours (Table) 08/13/18 08/13/18 08/13/18 Range/Units 06:13 11:38 13:12 RBC (4.30-5.90) m/uL Hgb (13.0-17.5) gm/dL Hct (39.0-53.0) % Lymphocytes # (1.0-4.8) k/uL Sodium 135 L 133 L (137-145) mmol/L BUN 27 H 31 H (9-20) mg/dL Creatinine 2.26 H 2.27 H (0.66-1.25) mg/dL Glucose 158 H 278 H (74-99) mg/dL POC Glucose (mg/dL) 320 H (75-99) mg/dL Calcium 7.5 L 7.4 L (8.4-10.2) mg/dL Troponin I (0.000-0.034) ng/mL Total Protein 4.9 L (6.3-8.2) g/dL Albumin 2.6 L (3.5-5.0) g/dL 08/13/18 08/13/18 08/14/18 Range/Units 16:33 20:31 05:55 RBC (4.30-5.90) m/uL Hgb (13.0-17.5) gm/dL Hct (39.0-53.0) % Lymphocytes # (1.0-4.8) k/uL Sodium (137-145) mmol/L BUN (9-20) mg/dL Creatinine (0.66-1.25) mg/dL Glucose (74-99) mg/dL POC Glucose (mg/dL) 234 H 157 H 171 H (75-99) mg/dL Calcium (8.4-10.2) mg/dL Troponin I (0.000-0.034) ng/mL Total Protein (6.3-8.2) g/dL Albumin (3.5-5.0) g/dL 08/14/18 08/14/18 08/14/18 Range/Units 06:22 06:22 06:22 RBC 2.91 L (4.30-5.90) m/uL Hgb 8.4 L (13.0-17.5) gm/dL Hct 27.1 L (39.0-53.0) % Lymphocytes # 0.5 L (1.0-4.8) k/uL Sodium 134 L (137-145) mmol/L BUN 35 H (9-20) mg/dL Creatinine 2.43 H (0.66-1.25) mg/dL Glucose 136 H (74-99) mg/dL POC Glucose (mg/dL) (75-99) mg/dL Calcium 7.3 L (8.4-10.2) mg/dL Troponin I 1.890 H* (0.000-0.034) ng/mL Total Protein (6.3-8.2) g/dL Albumin (3.5-5.0) g/dL Assessment and Plan Assessment: -Right second toe gangrene with acute cellulitis of the right foot. Status post angiogram reporting right lower extremity critical limb ischemia with second toe gangrene. Right anterior tibial, posterior tibial artery occlusion with no flow distal to the ankle. Status post right BKA. -Peripheral vascular disease ,peripheral arterial disease -Mild acute on chronic congestive heart failure, systolic dysfunction, EF 20- 25%. Ischemic cardiomyopathy. -Acute renal failure, possibly vancomycin and diuretic-induced. -Left lower lobe pneumonia, possible aspiration -CAD with history of stent -Diabetes mellitus type 2 -Benign prostatic hypertrophy -Chronic persistent atrial fibrillation -History of gout -Hypomagnesemia -Hypokalemia -Chronic Paroxysmal A. fib Plan: Continue on current medication regime ,monitoring and symptomatic treatment. Anticoagulated on Eliquis, Plavix, aspirin as per cardio logy.Maintain diuretics as per nephrology.renal ultrasound pending.Nebulized bronchodilators, antibiotics as per infectious disease. Cabrera discontinued, Post void residuals .Close monitoring of electrolytes, hemoglobin with repeat labs ordered for a.m. subacute rehab at discharge. The impression and plan of care has been dictated as directed. : I performed a history and examination of this patient, discussed the same with the dictator. I agree with the dictator's note ,documented as a scribe. Any additional findings or plans will be noted.
[2018-08-14 16:35] LABS: Glucose,Whole Blood 263 mg/dL (75-99)
[2018-08-14 20:23] LABS: Glucose,Whole Blood 212 mg/dL (75-99)
[2018-08-14] MEDS: TAMSULOSIN 0.4 MG CAP.ER.24H PO SCH (20:23)
[2018-08-14] MEDS: ATORVASTATIN 40 MG TAB PO SCH (20:23)
[2018-08-15] MEDS: PIPERACILLIN-TAZOBACTAM 3.375 GM in SODIUM CHLORIDE 0.9% 100 ML IVPB SCH ×3 (00:19→20:32)
[2018-08-15] MEDS: HYDROcodone/APAP 5-325MG 1 EACH TAB PO PRN ×3 (00:37→18:18)
--- NOTE | 2018-08-15 01:04 | PN ---
PROGRESS NOTE DATE OF SERVICE: 08/14/2018. REASON FOR FOLLOWUP VISIT: Left lower lobe pneumonia, possible gram-negative aspiration. INTERVAL HISTORY: The patient did spike a fever of 102 at 4 in the morning. The patient has been afebrile since then. The patient was noticed to be feeding himself and cough any choking afterward. The patient denies significant chest pain or shortness of breath. He did have some cough but not bringing up any sputum. No nausea or vomiting. No abdominal pain or any diarrhea. PHYSICAL EXAMINATION: Blood pressure 130/60 with a pulse of 84, temperature 98.8. He is 91% on 2 L nasal cannula. GENERAL DESCRIPTION: An elderly male lying in bed in no distress. RESPIRATORY SYSTEM: Unlabored breathing. Coarse breath sounds bilaterally with occasional wheeze. HEART: S1, S2. Regular rate and rhythm. ABDOMEN: Soft, no tenderness. LABS: Hemoglobin 8.4, white count 8.8. BUN of 35, creatinine 2.4. The urine has been significantly positive. Blood culture has been negative. DIAGNOSTIC IMPRESSION AND PLAN: Patient with left lower lobe pneumonia with concern for possible aspiration etiology with new fever concerning for recurrent aspiration as the patient was noticed to be coughing while he was feeding himself. The patient is currently covered with Zosyn which will be continued for now. We will try to obtain sputum and adjust antibiotics. The patient did have significantly positive UA. Will wait for urine culture to finalize. Continue Zosyn at this point. Continue supportive care. MMODL / IJN: [id number] /
[2018-08-15 06:14] LABS: Glucose,Whole Blood 137 mg/dL (75-99)
[2018-08-15] MEDS: INSULIN ASPART (NovoLOG) 100 UNIT/ML VIAL SQ SCH ×4 (06:22→22:33)
[2018-08-15 06:47] LABS: Basophils % (A) 0 %; Eosinophils # (A) 0.3 k/uL (0-0.7); Eosinophils % (A) 4 %; HCT 29.3 % (39.0-53.0); HGB 9.3 gm/dL (13.0-17.5); Hypochromasia Slight; Lymphocytes # (A) 0.7 k/uL (1.0-4.8); Lymphocytes % (A) 8 %; MCH 29.9 pg (25.0-35.0); MCHC 31.7 g/dL (31.0-37.0); MCV 94.4 fL (80.0-100.0); Mean Platelet Volume 7.2; Monocytes # (A) 0.4 k/uL (0-1.0); Monocytes % (A) 5 %; Neutrophils # (A) 6.8 k/uL (1.3-7.7); Neutrophils % (A) 80 %; Platelet Count 298 k/uL (150-450); RBC 3.11 m/uL (4.30-5.90); RDW 14.7 % (11.5-15.5); WBC 8.5 k/uL (3.8-10.6)
[2018-08-15 07:05] LABS: Calcium 7.9 mg/dL (8.4-10.2); Magnesium 2.1 mg/dL (1.6-2.3); Potassium 4.1 mmol/L (3.5-5.1)
[2018-08-15] MEDS: IPRATROPIUM-ALBUTEROL 3 ML NEB INHALATION SCH ×4 (08:10→21:05)
[2018-08-15] MEDS: SYMBICORT 80-4.5 MCG INHALER INHALATION SCH ×3 (08:10→21:07)
[2018-08-15] MEDS: METOPROLOL TARTRATE 25 MG TAB PO SCH ×2 (09:07→20:31)
[2018-08-15] MEDS: GABAPENTIN 300 MG CAP PO SCH ×3 (09:07→20:31)
[2018-08-15] MEDS: APIXABAN 2.5 MG TABLET PO SCH ×2 (09:07→20:32)
[2018-08-15] MEDS: COLCHICINE 0.6 MG EACH PO SCH (09:07)
[2018-08-15] MEDS: ASPIRIN 81 MG PO SCH (09:07)
[2018-08-15] MEDS: CLOPIDOGREL 75 MG TAB PO SCH (09:07)
[2018-08-15] MEDS: FUROSEMIDE 40 MG TAB PO SCH (09:07)
[2018-08-15 09:37] VITALS: RESP 20
--- NOTE | 2018-08-15 10:39 | P.PN ---
Subjective Patient is seen in follow-up for acute kidney injury. His baseline creatinine is 1. Creatinine is up to 2.5 today. 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 Currently resting in bed. Cabrera catheter has been discontinued. He is voiding. Patient has systolic CHF with ejection fraction of 20-25%. No vomiting or diarrhea. Oral intake is fair. Vital signs are stable. General: The patient appeared well nourished and normally developed. HEENT: Head exam is unremarkable. Neck is without jugular venous distension. LUNGS: Lungs are clear to auscultation and percussion. Breath sounds decreased. HEART: Rate and Rhythm are regular. First and second heart sounds normal. No murmurs, rubs or gallops. ABDOMEN: Abdominal exam reveals normal bowel sounds. Non-tender and non- distended. No evidence of peritonitis. EXTREMITITES: No clubbing, cyanosis, or edema. Right BKA noted. Objective - Vital Signs Vital signs: Vital Signs Temp 98.6 F 08/15/18 08:00 Pulse 88 08/15/18 08:22 Resp 20 08/15/18 08:00 BP 119/76 08/15/18 08:00 Pulse Ox 90 L 08/15/18 08:00 Intake & Output 08/14/18 08/15/18 08/15/18 18:59 06:59 18:59 Intake Total 924 140 240 Output Total 1400 200 Balance -476 140 40 Weight 67.5 kg Intake: IV 140 Sodium Chloride 0.9% 1, 140 000 ml @ 20 mls/hr IV . Q24H [facility] Rx#:[id number] Intake, IV Titration 240 Amount Piperacillin-Tazobactam 3 100 .375 gm In Sodium Chloride 0.9% 100 ml @ 25 mls/hr IVPB Q8HR [facility] Rx# :[id number] Sodium Chloride 0.9% 1, 140 000 ml @ 20 mls/hr IV . Q24H [facility] Rx#:[id number] Oral 684 240 Output: Urine 1400 200 Other: Voiding Method Urinal # Voids 1 - Labs CBC & Chem 7: 08/15/18 06:09 08/15/18 06:09 Labs: Abnormal Lab Results - Last 24 Hours (Table) 08/14/18 08/14/18 08/14/18 Range/Units 11:05 11:40 16:34 RBC (4.30-5.90) m/uL Hgb (13.0-17.5) gm/dL Hct (39.0-53.0) % Lymphocytes # (1.0-4.8) k/uL BUN (9-20) mg/dL Creatinine (0.66-1.25) mg/dL Glucose (74-99) mg/dL POC Glucose (mg/dL) 196 H 263 H (75-99) mg/dL Calcium (8.4-10.2) mg/dL Urine Blood Small H (Negative) Ur Leukocyte Esterase Large H (Negative) Urine RBC 13 H (0-5) /hpf Urine WBC 65 H (0-5) /hpf Urine WBC Clumps Few H (None) /hpf Urine Bacteria Few H (None) /hpf Urine Mucus Rare H (None) /hpf 08/14/18 08/15/18 08/15/18 Range/Units 20:21 06:09 06:09 RBC 3.11 L (4.30-5.90) m/uL Hgb 9.3 L (13.0-17.5) gm/dL Hct 29.3 L (39.0-53.0) % Lymphocytes # 0.7 L (1.0-4.8) k/uL BUN 38 H (9-20) mg/dL Creatinine 2.58 H (0.66-1.25) mg/dL Glucose 125 H (74-99) mg/dL POC Glucose (mg/dL) 212 H (75-99) mg/dL Calcium 7.9 L (8.4-10.2) mg/dL Urine Blood (Negative) Ur Leukocyte Esterase (Negative) Urine RBC (0-5) /hpf Urine WBC (0-5) /hpf Urine WBC Clumps (None) /hpf Urine Bacteria (None) /hpf Urine Mucus (None) /hpf 08/15/18 Range/Units 06:12 RBC (4.30-5.90) m/uL Hgb (13.0-17.5) gm/dL Hct (39.0-53.0) % Lymphocytes # (1.0-4.8) k/uL BUN (9-20) mg/dL Creatinine (0.66-1.25) mg/dL Glucose (74-99) mg/dL POC Glucose (mg/dL) 137 H (75-99) mg/dL Calcium (8.4-10.2) mg/dL Urine Blood (Negative) Ur Leukocyte Esterase (Negative) Urine RBC (0-5) /hpf Urine WBC (0-5) /hpf Urine WBC Clumps (None) /hpf Urine Bacteria (None) /hpf Urine Mucus (None) /hpf Assessment and Plan Plan: Assessment: 1. Acute kidney injury secondary to ATN secondary to contrast-induced nephropathy and diuresis. Baseline creatinine is near 1. Elevated at 2.58 today. No proteinuria on UA. No hydronephrosis noted on ultrasound. 2. Right foot infection status post BKA on August 11. 3. Systolic CHF with ejection fraction of 20-25%. 4. Urinary retention status post Cabrera catheter placement - discontinued on August 14. Maintain on Flomax. 5. Diabetes mellitus. 6. Fluid overload. Maintained on diuretics. Plan: Maintain Lasix 40 mg daily. Continue to monitor renal function and urine output. Repeat electrolytes in the morning.
[2018-08-15 11:39] LABS: Glucose,Whole Blood 167 mg/dL (75-99)
--- NOTE | 2018-08-15 12:44 | P.PN ---
Progress Note - Text Progress Note Date: 08/15/18 This is a gentleman with ischemic cardiomyopathy, paroxysmal atrial fibrillation, past history of alcoholism and smoking. He has PAD and underwent below knee amputation of the right lower extremity. He feels restless and exhausted but has no chest discomfort. He is not in any overt heart failure. His oxygen saturation is fairly decent. Vital signs stable S1-S2 heard normally lungs revealed expiratory rhonchi. Abdomen is soft nontender fluid extruding exam revealed diminished pulses on the left lower extremity and I did not examine the right stump. I am recommending that we continue with physical therapy help in his ambulation give him some breathing treatments and improve activity. He can go to rehab facility hopefully his functional capacity will be optimized. I have reviewed his medications and continue the same but will give him an additional breathing treatment today. This gentleman has history of CKD and creatinines in the range of 2.5. However he also has ischemic cardiomyopathy. I will start him on losartan 12.5 mg daily and hydralazine 12.5 mg twice a day with para. prognosis remains guarded meters systolic blood pressure. Prognosis remains guarded
[2018-08-15] MEDS: LOSARTAN 25 MG TAB PO SCH (16:53)
[2018-08-15 16:57] LABS: Glucose,Whole Blood 253 mg/dL (75-99)
--- NOTE | 2018-08-15 17:03 | P.PN ---
Progress Note - Text Progress Note Date: 08/15/18 Patient seen and examined. Doing well. States pain in his right leg is improved since amputation. Amputation site is clean, dry and intact with minimal swelling and tenderness. Continue hard protective dressing. Ok for discharge to rehab from vascular standpoint. I will see him in office in 2 weeks for staple removal. Will re-eval at your request.
[2018-08-15] MEDS: ATORVASTATIN 40 MG TAB PO SCH (20:31)
[2018-08-15] MEDS: TAMSULOSIN 0.4 MG CAP.ER.24H PO SCH (20:31)
[2018-08-15 20:40] LABS: Glucose,Whole Blood 195 mg/dL (75-99)
[2018-08-15] MEDS: SODIUM CHLORIDE 0.9% 1,000 ML IV SCH (22:29)
[2018-08-15] MEDS: hydrALAZINE HCL 25 MG TAB PO SCH (22:33)
[2018-08-15] MEDS: IPRATROPIUM-ALBUTEROL 3 ML NEB INHALATION PRN (23:58)
[2018-08-16] MEDS: HYDROcodone/APAP 5-325MG 1 EACH TAB PO PRN (02:19)
[2018-08-16] MEDS: IPRATROPIUM-ALBUTEROL 3 ML NEB INHALATION PRN (03:32)
[2018-08-16 06:21] LABS: Glucose,Whole Blood 200 mg/dL (75-99)
--- NOTE | 2018-08-16 06:33 | PN ---
PROGRESS NOTE DATE OF SERVICE: 08/15/2018 REASON FOR FOLLOWUP: Pneumonia. INTERVAL HISTORY: The patient is afebrile. Has been breathing comfortably. The patient did have some cough, but not bringing up any sputum. No nausea, no vomiting or any diarrhea. PHYSICAL EXAMINATION: On examination, blood pressure 117/80 with a pulse of 83, temperature 99.1. He is 90% on room air. General description is an elderly male up in the bed in no distress. RESPIRATORY SYSTEM: Unlabored breathing with decreased breath sounds in the bases. No wheeze. HEART: S1, S2. Regular rate and rhythm. ABDOMEN: Soft, no tenderness. LABS: Hemoglobin 9.3, white count of 8.5. BUN of 38, creatinine is 2.58. DIAGNOSTIC IMPRESSION AND PLAN: Patient with left lobe pneumonia, concern of possible or aspiration etiology. Aspiration precaution. Will try to obtain a sputum culture. Repeat chest x-ray tomorrow and continue supportive care. MMODL / IJN: [id number] /
[2018-08-16] MEDS: INSULIN ASPART (NovoLOG) 100 UNIT/ML VIAL SQ SCH (06:45)
[2018-08-16 06:53] LABS: Basophils % (A) 0 %; Eosinophils # (A) 0.2 k/uL (0-0.7); Eosinophils % (A) 2 %; HCT 26.6 % (39.0-53.0); HGB 8.1 gm/dL (13.0-17.5); Hypochromasia Slight; Lymphocytes # (A) 0.5 k/uL (1.0-4.8); Lymphocytes % (A) 6 %; MCH 28.6 pg (25.0-35.0); MCHC 30.3 g/dL (31.0-37.0); MCV 94.7 fL (80.0-100.0); Mean Platelet Volume 7.4; Monocytes # (A) 0.5 k/uL (0-1.0); Monocytes % (A) 6 %; Neutrophils # (A) 6.7 k/uL (1.3-7.7); Neutrophils % (A) 83 %; Platelet Count 330 k/uL (150-450); RBC 2.81 m/uL (4.30-5.90); RDW 14.7 % (11.5-15.5); WBC 8.1 k/uL (3.8-10.6)
[2018-08-16 07:22] LABS: Calcium 7.9 mg/dL (8.4-10.2); Magnesium 2.1 mg/dL (1.6-2.3)
[2018-08-16 07:49] VITALS: BMI 27.1
[2018-08-16] MEDS: SYMBICORT 80-4.5 MCG INHALER INHALATION SCH (09:14)
[2018-08-16] MEDS: IPRATROPIUM-ALBUTEROL 3 ML NEB INHALATION SCH ×2 (09:14→12:22)
--- NOTE | 2018-08-16 10:18 | P.PN ---
Subjective Patient is seen in follow-up for acute kidney injury. His baseline creatinine is 1. Renal function is starting to improve. Creatinine is down to 2.04 today. 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 Currently resting in bed. Cabrera catheter has been discontinued. He is voiding. Patient has systolic CHF with ejection fraction of 20-25%. No vomiting or diarrhea. Oral intake is fair. Vital signs are stable. General: The patient appeared well nourished and normally developed. HEENT: Head exam is unremarkable. Neck is without jugular venous distension. LUNGS: Lungs are clear to auscultation and percussion. Breath sounds decreased. HEART: Rate and Rhythm are regular. First and second heart sounds normal. No murmurs, rubs or gallops. ABDOMEN: Abdominal exam reveals normal bowel sounds. Non-tender and non- distended. No evidence of peritonitis. EXTREMITITES: No clubbing, cyanosis, or edema. Right BKA noted. Objective - Vital Signs Vital signs: Vital Signs Temp 98.4 F 08/16/18 04:00 Pulse 96 08/16/18 09:32 Resp 20 08/16/18 04:00 BP 104/70 08/16/18 04:00 Pulse Ox 90 L 08/15/18 15:57 Intake & Output 08/15/18 08/16/18 08/16/18 18:59 06:59 18:59 Intake Total 840 Output Total 1900 200 Balance -1060 -200 Weight 67.4 kg 67.4 kg Intake: IV 80 Sodium Chloride 0.9% 1, 80 000 ml @ 20 mls/hr IV . Q24H [facility] Rx#:[id number] Intake, IV Titration 100 Amount Piperacillin-Tazobactam 3 100 .375 gm In Sodium Chloride 0.9% 100 ml @ 25 mls/hr IVPB Q12HR [facility] Rx #:[id number] Oral 660 Output: Urine 1900 200 Other: Voiding Method Urinal # Voids 1 # Bowel Movements 1 1 - Labs CBC & Chem 7: 08/16/18 06:00 08/16/18 06:00 Labs: Abnormal Lab Results - Last 24 Hours (Table) 08/15/18 08/15/18 08/15/18 Range/Units 11:37 16:55 20:39 RBC (4.30-5.90) m/uL Hgb (13.0-17.5) gm/dL Hct (39.0-53.0) % MCHC (31.0-37.0) g/dL Lymphocytes # (1.0-4.8) k/uL Sodium (137-145) mmol/L BUN (9-20) mg/dL Creatinine (0.66-1.25) mg/dL Glucose (74-99) mg/dL POC Glucose (mg/dL) 167 H 253 H 195 H (75-99) mg/dL Calcium (8.4-10.2) mg/dL 08/16/18 08/16/18 08/16/18 Range/Units 06:00 06:00 06:19 RBC 2.81 L (4.30-5.90) m/uL Hgb 8.1 L (13.0-17.5) gm/dL Hct 26.6 L (39.0-53.0) % MCHC 30.3 L (31.0-37.0) g/dL Lymphocytes # 0.5 L (1.0-4.8) k/uL Sodium 135 L (137-145) mmol/L BUN 43 H (9-20) mg/dL Creatinine 2.04 H (0.66-1.25) mg/dL Glucose 159 H (74-99) mg/dL POC Glucose (mg/dL) 200 H (75-99) mg/dL Calcium 7.9 L (8.4-10.2) mg/dL Assessment and Plan Plan: Assessment: 1. Acute kidney injury secondary to ATN secondary to contrast-induced nephropathy and diuresis. Baseline creatinine is near 1. Creatinine peaked at 2.5 at this admission and is down to 2.04. No proteinuria on UA. No hydronephrosis noted on ultrasound. 2. Right foot infection status post BKA on August 11. 3. Systolic CHF with ejection fraction of 20-25%. 4. Urinary retention status post Cabrera catheter placement - discontinued on August 14. Maintain on Flomax. 5. Diabetes mellitus. 6. Fluid overload. Maintained on diuretics. Plan: Maintain Lasix 40 mg daily. Continue to monitor renal function and urine output. Repeat electrolytes in the morning. Stable to be discharged home from nephrology standpoint. Follow up outpatient in the next 1-2 weeks.
[2018-08-16] MEDS: METOPROLOL TARTRATE 25 MG TAB PO SCH (10:32)
[2018-08-16] MEDS: LOSARTAN 25 MG TAB PO SCH (10:32)
[2018-08-16] MEDS: APIXABAN 2.5 MG TABLET PO SCH (10:32)
[2018-08-16] MEDS: GABAPENTIN 300 MG CAP PO SCH (10:33)
[2018-08-16] MEDS: CLOPIDOGREL 75 MG TAB PO SCH (10:33)
[2018-08-16] MEDS: FUROSEMIDE 40 MG TAB PO SCH (10:33)
[2018-08-16] MEDS: COLCHICINE 0.6 MG EACH PO SCH (10:33)
[2018-08-16] MEDS: hydrALAZINE HCL 25 MG TAB PO SCH ×2 (10:33→10:38)
[2018-08-16] MEDS: PIPERACILLIN-TAZOBACTAM 3.375 GM in SODIUM CHLORIDE 0.9% 100 ML IVPB SCH (10:33)
[2018-08-16] MEDS: ASPIRIN 81 MG PO SCH (10:33)
--- NOTE | 2018-08-16 11:05 | P.VSCSTY ---
Greater Saphenous Vein Mapping This is bilateral lower extremity greater saphenous vein mapping. Date of service 08/08/2018 Vein quality and ultrasound appearance no intraluminal thrombus or wall changes are seen. Vein size groin right 5 x 4 groin left 4.3 x 3 High thigh right 4.8 x 3.8 high thigh left 3.6 x 2.9 Mid thigh right 2.9 x 3.5 mid thigh left 1.8 x 1.7 Above-knee right 3.5 x 2.1 above-knee left 1.7 x 1.7 Below knee right 3.0 x 2.2 below-knee left 1.7 x 1.4 Mid calf right 3.8 x 2.3 mid calf left 1.8 x 1.6 Ankle right 4.1x3.5 ankle left 2.1x1.5 Impression Usable benedict right leg and left thigh. left lower leg somewhat small..
[2018-08-16 11:49] LABS: Glucose,Whole Blood 185 mg/dL (75-99)
[2018-08-16 12:15] VITALS: BP 111/73; TEMP 97.9
--- NOTE | 2018-08-16 12:25 | P.PN ---
<Kaye Bojorquez - Last Filed: 08/16/18 12:25> Subjective Progress Note Date: 08/15/18 Progress note being dictated for Dr. Gale Interval history: This is a 77-year-old gentleman admitted with right second toe gangrene with secondary cellulitis. Scheduled for angiogram today and possible amputation pending results as per vascular surgery. T-max 99.4. Potassium 3.3, magnesium 1.5. Maintained on vancomycin and Zosyn. Sitting up in chair, pain currently controlled, denies increased pain of affected extremity. Denies chest pain, palpitations. 08/10/2018 status post angiogram reporting occluded anterior tibial and posterior tibial arteries just after the takeoff without collateralization, no flow from the ankle extending to the toes. Vascular surgery recommending below- knee amputation. Tolerated procedure well. Denies chest pain, palpitations or increased shortness of breath. Maintained on IV antibiotics. T-max 99.1, normal WBC. Received potassium and magnesium supplements yesterday, magnesium 1.7, BMP pending. 08/11/2018 patient is returning from OR-right BKA, EBL 100 ML. Tolerated procedure well.pain controlled.VSS. Maintained on IV antibiotics. T-max 100.5. Hemoglobin 9.8. Blood sugars better controlled. Denies chest pain, palpitations or increasing shortness of breath. 08/14/2018 maintained on Zosyn, and decreased dose of diuretics,creatinine up to 2.43. Renal ultrasound pending. Troponin elevated, 1.890. Denies chest pain, palpitations or increased shortness of breath. Evaluated by cardiology, recommendations noted. 08/15/2018 dressing changed. Complaining of phantom limb pain. Creatinine 2.58. Renal ultrasound reported 5 mm nonobstructive left renal calculus, no hydronephrosis. Denies chest pain, palpitations or increased shortness of breath. Good diet intake, no nausea vomiting or diarrhea. Diuresing well on Lasix 40 mg daily, with 24-hour I&O reflecting a negative fluid balance. Maintained on Flomax. Cabrera catheter is continued, spontaneous voiding. Objective - Vital Signs Vital signs: Vital Signs Temp 98.1 F 08/15/18 12:00 Pulse 85 08/15/18 13:47 Resp 20 08/15/18 12:00 BP 120/70 08/15/18 12:00 Pulse Ox 90 L 08/15/18 12:00 Intake & Output 08/14/18 08/15/18 08/15/18 18:59 06:59 18:59 Intake Total 924 140 660 Output Total 1400 1175 Balance -476 140 -515 Weight 67.5 kg Intake: IV 140 80 Sodium Chloride 0.9% 1, 140 80 000 ml @ 20 mls/hr IV . Q24H [facility] Rx#:[id number] Intake, IV Titration 240 100 Amount Piperacillin-Tazobactam 3 100 .375 gm In Sodium Chloride 0.9% 100 ml @ 25 mls/hr IVPB Q12HR [facility] Rx #:[id number] Piperacillin-Tazobactam 3 100 .375 gm In Sodium Chloride 0.9% 100 ml @ 25 mls/hr IVPB Q8HR [facility] Rx# :[id number] Sodium Chloride 0.9% 1, 140 000 ml @ 20 mls/hr IV . Q24H [facility] Rx#:[id number] Oral 684 480 Output: Urine 1400 1175 Other: Voiding Method Urinal # Voids 1 - Exam PHYSICAL EXAM: VITAL SIGNS: As above GENERAL: Sitting up in bed, no acute distress HEENT: Conjunctivae normal. eyes normal. Oral mucosa moist NECK: No JVD. No thyroid enlargement. No LNs CARDIOVASCULAR: S1, S2 muffled. No murmur RESPIRATION: Breath sounds diminished in the bases. ABDOMEN: Soft, nontender . No guarding. no masses palpable.Bowel sounds heard. PSYCHIATRY: Alert and oriented -3, mood and affect normal. NERVOUS SYSTEM: Cranial N 2-12 grossly normal. Diffuse weakness. No focal deficits. Skin: Right BKA with lower extremity dressing clean dry and intact - Labs CBC & Chem 7: 08/16/18 06:00 08/16/18 06:00 Labs: Abnormal Lab Results - Last 24 Hours (Table) 08/14/18 08/14/18 08/15/18 Range/Units 16:34 20:21 06:09 RBC 3.11 L (4.30-5.90) m/uL Hgb 9.3 L (13.0-17.5) gm/dL Hct 29.3 L (39.0-53.0) % Lymphocytes # 0.7 L (1.0-4.8) k/uL BUN (9-20) mg/dL Creatinine (0.66-1.25) mg/dL Glucose (74-99) mg/dL POC Glucose (mg/dL) 263 H 212 H (75-99) mg/dL Calcium (8.4-10.2) mg/dL 08/15/18 08/15/18 08/15/18 Range/Units 06:09 06:12 11:37 RBC (4.30-5.90) m/uL Hgb (13.0-17.5) gm/dL Hct (39.0-53.0) % Lymphocytes # (1.0-4.8) k/uL BUN 38 H (9-20) mg/dL Creatinine 2.58 H (0.66-1.25) mg/dL Glucose 125 H (74-99) mg/dL POC Glucose (mg/dL) 137 H 167 H (75-99) mg/dL Calcium 7.9 L (8.4-10.2) mg/dL Assessment and Plan Assessment: -Right second toe gangrene with acute cellulitis of the right foot. Status post angiogram reporting right lower extremity critical limb ischemia with second toe gangrene. Right anterior tibial, posterior tibial artery occlusion with no flow distal to the ankle. Status post right BKA. -Peripheral vascular disease ,peripheral arterial disease -Mild acute on chronic congestive heart failure, systolic dysfunction, EF 20- 25%. Ischemic cardiomyopathy. -Acute renal failure, secondary to ATN related to possibly vancomycin ,diuretic, contrast-induced. -Left lower lobe pneumonia, possible aspiration -CAD with history of stent -Diabetes mellitus type 2 -Benign prostatic hypertrophy -Chronic persistent atrial fibrillation -History of gout -Hypomagnesemia -Hypokalemia -Chronic Paroxysmal A. fib -Urinary obstruction, with urinary retention, post surgery- status post Cabrera catheter placement, as expected given history of prostate cancer with radiation, BPH. Spontaneous voiding. Plan: Continue on current medication regime ,monitoring and symptomatic treatment. Continue on nebulized bronchodilators. Maintain anticoagulation as per cardiology.Diuretics as per nephrology.Antibiotics as per infectious disease. Close monitoring of electrolytes, hemoglobin with repeat labs ordered for a.m. discharge planning in progress for tomorrow to subacute rehab at discharge, pending nephrology and ID clearance. Vascular surgery clearance obtained. The impression and plan of care has been dictated as directed. : I performed a history and examination of this patient, discussed the same with the dictator. I agree with the dictator's note ,documented as a scribe. Any additional findings or plans will be noted. <Amber Negron - Last Filed: 08/16/18 16:09> Subjective Progress Note Date: 08/15/18 (Progress note being dictated for Dr. Negron) Objective - Vital Signs Vital signs: Vital Signs Temp 97.9 F 08/16/18 08:00 Pulse 92 08/16/18 12:38 Resp 20 08/16/18 12:00 BP 111/73 08/16/18 08:00 Pulse Ox 94 L 08/16/18 08:00 Intake & Output 08/15/18 08/16/18 08/16/18 18:59 06:59 18:59 Intake Total 840 240 Output Total 1900 200 300 Balance -1060 -200 -60 Weight 67.4 kg 67.4 kg Intake: IV 80 Sodium Chloride 0.9% 1, 80 000 ml @ 20 mls/hr IV . Q24H [facility] Rx#:[id number] Intake, IV Titration 100 Amount Piperacillin-Tazobactam 3 100 .375 gm In Sodium Chloride 0.9% 100 ml @ 25 mls/hr IVPB Q12HR [facility] Rx #:[id number] Oral 660 240 Output: Urine 1900 200 300 Other: Voiding Method Urinal Urinal # Voids 1 # Bowel Movements 1 0 - Labs CBC & Chem 7: 08/16/18 06:00 08/16/18 06:00 Labs: Abnormal Lab Results - Last 24 Hours (Table) 08/15/18 08/15/18 08/16/18 Range/Units 16:55 20:39 06:00 RBC 2.81 L (4.30-5.90) m/uL Hgb 8.1 L (13.0-17.5) gm/dL Hct 26.6 L (39.0-53.0) % MCHC 30.3 L (31.0-37.0) g/dL Lymphocytes # 0.5 L (1.0-4.8) k/uL Sodium (137-145) mmol/L BUN (9-20) mg/dL Creatinine (0.66-1.25) mg/dL Glucose (74-99) mg/dL POC Glucose (mg/dL) 253 H 195 H (75-99) mg/dL Calcium (8.4-10.2) mg/dL 08/16/18 08/16/18 08/16/18 Range/Units 06:00 06:19 11:47 RBC (4.30-5.90) m/uL Hgb (13.0-17.5) gm/dL Hct (39.0-53.0) % MCHC (31.0-37.0) g/dL Lymphocytes # (1.0-4.8) k/uL Sodium 135 L (137-145) mmol/L BUN 43 H (9-20) mg/dL Creatinine 2.04 H (0.66-1.25) mg/dL Glucose 159 H (74-99) mg/dL POC Glucose (mg/dL) 200 H 185 H (75-99) mg/dL Calcium 7.9 L (8.4-10.2) mg/dL
[2018-08-16] MEDS ORDERED: PANTOPRAZOLE 40 MG TABLET PO SCH (12:30)
--- NOTE | 2018-08-16 12:33 | P.DS ---
Providers Date of admission: 08/05/18 00:52 Expected date of discharge: 08/16/18 Attending physician: Emilee Negron Consults: 08/05/18 12:24 Consult Physician Routine Consulting Provider: Marilyn Aragon Consult Reason/Comments: right foot second toe Do you want consulting provider notified?: Yes 08/05/18 13:22 Consult Physician Routine Consulting Provider: Chucho Parada Consult Reason/Comments: right foot second toe Do you want consulting provider notified?: Yes 08/05/18 14:55 Consult Physician Routine Consulting Provider: Pj Sánchez Consult Reason/Comments: elevated trops Do you want consulting provider notified?: Yes 08/07/18 16:08 Consult Physician Routine Consulting Provider: Dipesh Dela Cruz Consult Reason/Comments: neck pain Do you want consulting provider notified?: Yes 08/09/18 13:27 Consult Physician Routine Consulting Provider: Elisabeth Abebe Consult Reason/Comments: pre-op Do you want consulting provider notified?: Already Contacted 08/13/18 12:21 Consult Physician Routine Consulting Provider: Alexandra Preston Consult Reason/Comments: arf Do you want consulting provider notified?: Yes [facility] Course: Final Diagnoses: -Right second toe gangrene with acute cellulitis of the right foot. Status post angiogram reporting right lower extremity critical limb ischemia with second toe gangrene. Right anterior tibial, posterior tibial artery occlusion with no flow distal to the ankle. Status post right BKA. -Peripheral vascular disease ,peripheral arterial disease -Mild acute on chronic congestive heart failure, systolic dysfunction, EF 20- 25%. Ischemic cardiomyopathy. -Acute renal failure, secondary to ATN related to possibly vancomycin ,diuretic, contrast-induced. -Left lower lobe pneumonia, possible aspiration -CAD with history of stent -Diabetes mellitus type 2 -Benign prostatic hypertrophy -Chronic persistent atrial fibrillation -History of gout -Hypomagnesemia -Hypokalemia -Chronic Paroxysmal A. fib -Urinary obstruction, with urinary retention, post surgery- status post Cabrera catheter placement, as expected given history of prostate cancer with radiation, BPH. Spontaneous voiding. Hospital course:This is a 77-year-old gentleman admitted with right second toe gangrene with secondary cellulitis. Scheduled for angiogram today and possible amputation pending results as per vascular surgery. T-max 99.4. Potassium 3.3, magnesium 1.5. Maintained on vancomycin and Zosyn. Sitting up in chair, pain currently controlled, denies increased pain of affected extremity. Denies chest pain, palpitations. 08/10/2018 status post angiogram reporting occluded anterior tibial and posterior tibial arteries just after the takeoff without collateralization, no flow from the ankle extending to the toes. Vascular surgery recommending below- knee amputation. Tolerated procedure well. Denies chest pain, palpitations or increased shortness of breath. Maintained on IV antibiotics. T-max 99.1, normal WBC. Received potassium and magnesium supplements yesterday, magnesium 1.7, BMP pending. 08/11/2018 patient is returning from OR-right BKA, EBL 100 ML. Tolerated procedure well.pain controlled.VSS. Maintained on IV antibiotics. T-max 100.5. Hemoglobin 9.8. Blood sugars better controlled. Denies chest pain, palpitations or increasing shortness of breath. 08/14/2018 maintained on Zosyn, and decreased dose of diuretics,creatinine up to 2.43. Renal ultrasound pending. Troponin elevated, 1.890. Denies chest pain, palpitations or increased shortness of breath. Evaluated by cardiology, recommendations noted. 08/15/2018 dressing changed. Complaining of phantom limb pain. Creatinine 2.58. Renal ultrasound reported 5 mm nonobstructive left renal calculus, no hydronephrosis. Denies chest pain, palpitations or increased shortness of breath. Good diet intake, no nausea vomiting or diarrhea. Diuresing well on Lasix 40 mg daily, with 24-hour I&O reflecting a negative fluid balance. Maintained on Flomax. Cabrera catheter is continued, spontaneous voiding. 08/16/2018 cleared by all consults for discharge. Patient is being discharged to subacute rehab today in a stable condition with guarded prognosis. EXAM: GENERAL: A & O x 3, no acute distress. CARDIOVASCULAR: S1, S2 muffled. No murmur RESPIRATION: Breath sounds diminished in the bases. ABDOMEN: Soft, nontender . No guarding. no masses palpable.Bowel sounds heard. NERVOUS SYSTEM: No focal deficits. Skin: Right BKA with lower extremity dressing clean dry and intact The impression and plan of care has been dictated as directed. : I performed a history and examination of this patient, discussed the same with the dictator. I agree with the dictator's note ,documented as a scribe. Any additional findings or plans will be noted. Time taken: 35 minutes Patient Condition at Discharge: Stable Plan - Discharge Summary Discharge Rx Participant: Yes New Discharge Prescriptions: New hydrALAZINE HCL [Apresoline] 12.5 mg PO BID tab Aspirin 81 mg PO DAILY chew Colchicine [Colcrys] 0.6 mg PO DAILY each Losartan [Cozaar] 12.5 mg PO DAILY tab Ipratropium-Albuterol Nebulize [Duoneb 0.5 mg-3 mg/3 ml Soln] 3 ml INHALATION RT-QID ampul.neb Ipratropium-Albuterol Nebulize [Duoneb 0.5 mg-3 mg/3 ml Soln] 3 ml INHALATION Q4H PRN ampul.neb PRN Reason: Shortness Of Breath Or Wheezing Apixaban [Eliquis] 2.5 mg PO BID tablet INSULIN LISPRO (HumaLOG) [humaLOG] 0 unit SQ ACHS #1 vial Furosemide [Lasix] 40 mg PO DAILY tab Metoprolol Tartrate [Lopressor] 25 mg PO BID tab Gabapentin [Neurontin] 300 mg PO TID cap Clopidogrel [Plavix] 75 mg PO DAILY tab Carisoprodol [Soma] 350 mg PO TID PRN tab PRN Reason: Muscle Spasm Pantoprazole Sodium [Protonix] 40 mg PO DAILY #1 tablet. HYDROcodone/APAP 5-325MG [[place] 5-325] 1 each PO Q4HR PRN #12 tab PRN Reason: Moderate Pain Acetaminophen Tab [Tylenol] 650 mg PO Q6HR PRN tab PRN Reason: Mild Pain Or Fever > 100.5 Continue Tamsulosin HCl [Flomax] 0.4 mg PO HS metFORMIN HCL [Glucophage] 1,000 mg PO BID #0 Fluticasone/Salmeterol [Advair 250-50 Diskus] 1 puff INHALATION RT-BID Atorvastatin [Lipitor] 40 mg PO HS Discontinued Allopurinol [Zyloprim] 300 mg PO DAILY Spironolactone [Aldactone] 25 mg PO DAILY #30 tab Apixaban [Eliquis] 5 mg PO BID #60 tab Furosemide [Lasix] 40 mg PO BID #60 tablet Lisinopril [Zestril] 2.5 mg PO DAILY #30 tab Metoprolol Tartrate [Lopressor] 50 mg PO BID Albuterol Nebulized [Ventolin Nebulized] 2.5 mg INHALATION DAILY PRN PRN Reason: Dyspnea methylPREDNISolone [Medrol] 4 mg PO DAILY Discharge Medication List Tamsulosin HCl [Flomax] 0.4 mg PO HS 05/13/15 [History] metFORMIN HCL [Glucophage] 1,000 mg PO BID #0 05/10/16 [Rx] Atorvastatin [Lipitor] 40 mg PO HS 08/04/18 [History] Fluticasone/Salmeterol [Advair 250-50 Diskus] 1 puff INHALATION RT-BID 08/04/18 [History] Acetaminophen Tab [Tylenol] 650 mg PO Q6HR PRN tab 08/16/18 [Rx] Apixaban [Eliquis] 2.5 mg PO BID tablet 08/16/18 [Rx] Aspirin 81 mg PO DAILY chew 08/16/18 [Rx] Carisoprodol [Soma] 350 mg PO TID PRN tab 08/16/18 [Rx] Clopidogrel [Plavix] 75 mg PO DAILY tab 08/16/18 [Rx] Colchicine [Colcrys] 0.6 mg PO DAILY each 08/16/18 [Rx] Furosemide [Lasix] 40 mg PO DAILY tab 08/16/18 [Rx] Gabapentin [Neurontin] 300 mg PO TID cap 08/16/18 [Rx] HYDROcodone/APAP 5-325MG [[place] 5-325] 1 each PO Q4HR PRN #12 tab 08/16/18 [Rx] INSULIN LISPRO (HumaLOG) [humaLOG] 0 unit SQ ACHS #1 vial 08/16/18 [Rx] Ipratropium-Albuterol Nebulize [Duoneb 0.5 mg-3 mg/3 ml Soln] 3 ml INHALATION Q4H PRN ampul.neb 08/16/18 [Rx] Ipratropium-Albuterol Nebulize [Duoneb 0.5 mg-3 mg/3 ml Soln] 3 ml INHALATION RT-QID ampul.neb 08/16/18 [Rx] Losartan [Cozaar] 12.5 mg PO DAILY tab 08/16/18 [Rx] Metoprolol Tartrate [Lopressor] 25 mg PO BID tab 08/16/18 [Rx] Pantoprazole Sodium [Protonix] 40 mg PO DAILY #1 tablet. 08/16/18 [Rx] hydrALAZINE HCL [Apresoline] 12.5 mg PO BID tab 08/16/18 [Rx] Follow up Appointment(s)/Referral(s): Pj Sánchez MD [STAFF PHYSICIAN] - 1 Week (office will call) Chucho Parada DO [STAFF PHYSICIAN] - 2 Weeks Lonnie Medina DO [STAFF PHYSICIAN] - 1 Week Mark Zacarias MD [STAFF PHYSICIAN] - 08/23/18 1:30 pm (associate of Dr. Parada) Mohit Martínez DO [Primary Care Provider] - 1 Week (After DC from subacute rehab) Patient Instructions/Handouts: Heart Failure (DC), Heart Healthy Diet (DC), Below the Knee Amputation (DC) Activity/Diet/Wound Care/Special Instructions: [place] in [facility] Diet: Consistent carb, cardiac Activity: Refer to surgery CBC, BMP in 3 days Discharge Disposition: TRANSFER TO SNF/ECF
[2018-08-16 12:38] VITALS: PULSE 92
--- NOTE | 2018-08-16 13:03 | PN ---
PROGRESS NOTE DATE OF SERVICE: 08/16/2018 REASON FOR FOLLOWUP: Pneumonia. INTERVAL HISTORY: The patient is currently afebrile. The patient is breathing more comfortably. Patient denies having any chest pain or shortness of breath. He did have very minimal cough. No abdominal pain or any diarrhea. PHYSICAL EXAMINATION: Blood pressure is 111/73 with a pulse of 78, temperature 97.9, he is 94% on 2 L nasal cannula. General description is an elderly male, lying in bed in no distress. RESPIRATORY SYSTEM: Unlabored breathing. Decreased breath sounds at the bases, no wheeze. HEART: S1, S2. Regular rate and rhythm. ABDOMEN: Soft, no tenderness. LABS: Hemoglobin 8.1, white count of 8.1. BUN of 43, creatinine 2.04. DIAGNOSTIC IMPRESSION AND PLAN: 1. Patient admitted to the hospital with right diabetic foot infection, Ruvalcaba's grade 4 in this patient who did have ischemic right second toe, status post amputation as , did not need any further antibiotic therapy. 2. Patient with left lobe pneumonia possible gram-negative or aspiration. Did well on Zosyn, will be transitioned to a short course of oral Avelox to finish a course of therapy. Continue supportive care. MMODL / IJN: [id number] /
[2018-08-16] MEDS ORDERED: PIPERACILLIN-TAZOBACTAM 3.375 GM in SODIUM CHLORIDE 0.9% 100 ML IVPB SCH (16:00)
== END 2018-08-16 16:02 | DRG 239 ==
LOC: EC 22:11 → 4SSUR 08-05 00:52 → 3SCARD 08-09 13:34
PROVIDERS: ADMIT Hospitalist; ATTEND Hospitalist
PROC: B54DZZZ Ultrasonography of Bilateral Lower Extremity Veins (ICD-10-PCS; 2018-08-08)
PROC: B41D1ZZ Fluoroscopy of Aorta and Bilateral Lower Extremity Arteries using Low Osmolar Contrast (ICD-10-PCS; 2018-08-08)
PROC: B44FZZ3 Ultrasonography of Right Lower Extremity Arteries, Intravascular (ICD-10-PCS; 2018-08-09 11:30)
PROC: 0Y6H0Z2 Detachment at Right Lower Leg, Mid, Open Approach (ICD-10-PCS; principal; 2018-08-11 07:00)
DX: E11.52 Type 2 diabetes mellitus with diabetic peripheral angiopathy with gangrene (principal); N17.0 Acute kidney failure with tubular necrosis; I50.23 Acute on chronic systolic (congestive) heart failure; J69.0 Pneumonitis due to inhalation of food and vomit; J44.1 Chronic obstructive pulmonary disease with (acute) exacerbation; N13.8 Other obstructive and reflux uropathy; L03.115 Cellulitis of right lower limb; I70.263 Atherosclerosis of native arteries of extremities with gangrene, bilateral legs; I48.0 Paroxysmal atrial fibrillation; E11.22 Type 2 diabetes mellitus with diabetic chronic kidney disease; E11.40 Type 2 diabetes mellitus with diabetic neuropathy, unspecified; E83.42 Hypomagnesemia; I25.5 Ischemic cardiomyopathy; E11.628 Type 2 diabetes mellitus with other skin complications; E11.621 Type 2 diabetes mellitus with foot ulcer; M06.9 Rheumatoid arthritis, unspecified; L97.519 Non-pressure chronic ulcer of other part of right foot with unspecified severity; I35.0 Nonrheumatic aortic (valve) stenosis; N14.1 Nephropathy induced by other drugs, medicaments and biological substances; I25.10 Atherosclerotic heart disease of native coronary artery without angina pectoris; H91.90 Unspecified hearing loss, unspecified ear; N40.1 Benign prostatic hyperplasia with lower urinary tract symptoms; M10.9 Gout, unspecified; L03.031 Cellulitis of right toe; M47.812 Spondylosis without myelopathy or radiculopathy, cervical region; E87.6 Hypokalemia; F10.21 Alcohol dependence, in remission; N18.9 Chronic kidney disease, unspecified; N20.0 Calculus of kidney; R74.8 Abnormal levels of other serum enzymes; I25.2 Old myocardial infarction; T50.8X5A Adverse effect of diagnostic agents, initial encounter; Z79.899 Other long term (current) drug therapy; Z79.01 Long term (current) use of anticoagulants; Z79.84 Long term (current) use of oral hypoglycemic drugs; Z79.52 Long term (current) use of systemic steroids; Z85.46 Personal history of malignant neoplasm of prostate; Z92.3 Personal history of irradiation; Z95.810 Presence of automatic (implantable) cardiac defibrillator; Z96.641 Presence of right artificial hip joint; Z95.5 Presence of coronary angioplasty implant and graft; Z90.49 Acquired absence of other specified parts of digestive tract; Z87.891 Personal history of nicotine dependence; Z87.01 Personal history of pneumonia (recurrent); Z88.6 Allergy status to analgesic agent; Z88.1 Allergy status to other antibiotic agents; Z91.018 Allergy to other foods; Z82.49 Family history of ischemic heart disease and other diseases of the circulatory system
CPT/HCPCS: 36245; 36415; 71045; 71046; 72050; 75710; 76770; 76937; 80048; 80053; 80202; 81001; 83036; 83735; 83880; 84484; 84550; 85025; 85027; 85610; 85730; 86850; 86900; 86901; 87040; 93005; 93306; 93970; 94640; 94760; 96365; 96375; 99285